=== PATIENT | male | born 1955 | race African-American/Black ===

== ENCOUNTER 2016-05-04 06:40 | Emergency (ER) ==
[2016-05-04 06:54] VITALS: TEMP 97.8; BMI 22.8
--- NOTE | 2016-05-04 07:04 | ED.PDOC ---
General ED Provider: Dr. DANYA SMALL JR Chief Complaint: Neck Pain Non-Injury Stated Complaint: c/o constant neck and shoulder pain. Increasing pain over last 3 days. Neck feels stiff. No known recent injury.[End]97.8 87 20 96% 157/ 92 910 Time Seen by Physician: 07:02 Mode of Arrival: Wheelchair Information Source: Patient Exam Limitations: No limitations Primary Care Provider: SHIRA BOWERS Nursing and Triage Documentation Reviewed and Agree: No Review of Systems - Review Of Systems Constitutional: Reports: Diaphoresis (incresed night sweats sid 2 nights ago continued lastnight) Eyes: Reports: No symptoms Ears, Nose, Mouth, Throat: Reports: No symptoms Respiratory: Reports: No symptoms Cardiac: Reports: No symptoms GI: Reports: No symptoms : Reports: No symptoms Musculoskeletal: Reports: Back pain, Neck pain (neck supple slight decreased arom consistent with history tender posterior muscles cspine upper tspin) Skin: Reports: No symptoms Neurological: Reports: No symptoms Endocrine: Reports: No symptoms Hematologic/Lymphatic: Reports: No symptoms All Other Systems: Reviewed and Negative Past Medical History - Past Medical History Endocrine: Reports: Dyslipidemia Cardiovascular: Reports: Hypertension Respiratory: Reports: COPD Hematological: Reports: None, Anemia Gastrointestinal: Reports: None, GERD, Liver (HEP C) Genitourinary: Reports: None, CKD, Other (ED) Neuro/Psych: Reports: None Musculoskeletal: Reports: Arthritis Cancer: Reports: None - Surgical History General Surgical History: Reports: Orthopedic ( LEFT HIP, BILATERAL FOOT SURGERY ,NECK SURG FUSION 1972, LEFT ARM SURG), Back Surgery (CS FUSION), Unknown ( BOTH FEET; LEFT HIP SURG) - Family History Family History: Reports: Unknown - Social History Smoking Status: Former smoker Hx Substance Use: No Alcohol Screening: None - Immunizations Tetanus Shot up to Date: Yes Physical Exam - Physical Exam Appearance: Well-appearing, Thin Pain Distress: Moderate Eyes: REINA, EOMI, Conjunctiva clear ENT: Ears normal, Nose normal, Erythema (posterior columns) Neck: Supple Respiratory: Airway patent, Breath sounds clear, Breath sounds equal, Respirations nonlabored Cardiovascular: RRR, Pulses normal, No rub, No murmur GI/: Soft, Nontender, No masses, Bowel sounds normal, No Organomegaly Musculoskeletal: Normal strength, ROM intact, No edema, No calf tenderness Skin: Warm, Dry, Normal color Neurological: Sensation intact, Motor intact, Reflexes intact, Cranial nerves intact, Alert, Oriented Psychiatric: Affect appropriate Interpretation - Radiology Interpretation Radiology Interpretation By: Radiologist Radiology Results: No acute changes Exam Interpreted: CT Scan (SEVERE DJD CHRONIC CHANGES ONLY) - EKG Interpretation Time of EKG #1: 07:59 Rate: Normal Rhythm: Sinus (63 note mery cardia 09/28/14) [place]: NL ST Segment: Normal (nonsig jpoint elevation no acute changes) Re-Evaluation - Re-Evaluation Time of Re-Evaluation: 11:00 (VARIABLE BLOOD PRESSURE, PATIETN STATES USUAL NOW ON 5 CLONIDINE A DAY REQUEST HOME AND WILL FOLLWO UP WITH PMD) Critical Care Note - Critical Care Note Total Time (mins): 5 Course - Course Hematology/Chemistry: 05/04/16 07:35 05/04/16 07:35 Orders, Labs, Meds: Lab Review 05/04/16 05/04/16 07:35 08:10 WBC 6.19 RBC 3.20 L Hgb 10.7 L Hct 32.1 L MCV 100.3 H MCH 33.4 H MCHC 33.3 RDW Coeff of Carlita 12.1 Plt Count 126 L Immature Gran % (Auto) 0.2 Neut % (Auto) 51.6 Lymph % (Auto) 38.1 Christian % (Auto) 8.1 Eos % (Auto) 1.5 Baso % (Auto) 0.5 Immature Gran # (Auto) 0.0 Neut # 3.2 Lymph # 2.4 Christian # 0.5 Eos # 0.1 Baso # 0.0 Sodium 140 Potassium 3.7 Chloride 106 Carbon Dioxide 23 Anion Gap 14.7 BUN 21 H Creatinine 1.32 H Estimated GFR (MDRD) 67.00 BUN/Creatinine Ratio 15.90 Glucose 123 H Lactic Acid 15.8 Calcium 10.3 H Total Bilirubin 0.78 AST 22 ALT 23 Alkaline Phosphatase 58 Total Protein 7.6 Albumin 3.4 Globulin 4.2 Albumin/Globulin Ratio 0.81 Procalcitonin 0.05 Influenza A (Rapid) Negative Influenza B (Rapid) Negative Orders Category Date Time Status EKG-(ED ONLY) Stat CARDIO 05/04/16 07:16 Completed Vital signs [ED VITAL SIGNS] .ONCE EMERGENCY 05/04/16 07:19 Active BLOOD CULTURE Stat LAB 05/04/16 07:35 Received CBC W/ AUTO DIFF Stat LAB 05/04/16 07:35 Completed COMPREHENSIVE METABOLIC PANEL Stat LAB 05/04/16 07:35 Completed LACTIC ACID Stat LAB 05/04/16 07:35 Completed MOLECULAR GROUP A STREP Stat LAB 05/04/16 08:10 Results PROCALCITONIN Stat LAB 05/04/16 07:35 Completed RAPID FLU A/B Stat LAB 05/04/16 08:10 Completed STREP SCREEN Stat LAB 05/04/16 08:10 Results Clonidine HCl [Catapres] MEDS 05/04/16 09:50 Discontinued 0.1 mg PO ONCE STA Cyclobenzaprine HCl [Flexeril] MEDS 05/04/16 07:08 Discontinued 5 mg PO ONCE STA Hydrocodone Bit/Acetaminophen [[place] 5-325] MEDS 05/04/16 07:07 Discontinued 1 tab PO ONCE STA Hydrocodone Bit/Acetaminophen [[place] 5-325] MEDS 05/04/16 07:08 Discontinued 1 tab PO ONCE STA CT CERVICAL SPINE W/O CONTRAST Stat RADS 05/04/16 07:07 Completed Medications Discontinued Medications Generic Name Dose Route Start Last Admin Trade Name Freq PRN Reason Stop Dose Admin Acetaminophen/Hydrocodone Bitart 1 tab 05/04/16 07:07 05/04/16 08:05 [place] 5-325 PO 05/04/16 07:08 Not Given ONCE STA Acetaminophen/Hydrocodone Bitart 1 tab 05/04/16 07:08 05/04/16 08:08 [place] 5-325 PO 05/04/16 07:09 1 tab ONCE STA Administration Clonidine 0.1 mg 05/04/16 09:50 05/04/16 10:08 Catapres PO 05/04/16 09:51 0.1 mg ONCE STA Administration Cyclobenzaprine HCl 5 mg 05/04/16 07:08 05/04/16 08:06 Flexeril PO 05/04/16 07:09 5 mg ONCE STA Administration Vital Signs: Temp Pulse Resp BP Pulse Ox 05/04/16 07:40 77 16 148/104 H 96 05/04/16 06:40 97.8 F 87 20 157/92 H 96 Departure - Departure Time of Disposition: 09:25 Disposition: HOME SELF-CARE Discharge Problem: Muscular pain Instructions: Acute Neck Pain (ED) Condition: Good Pt referred to PMD for follow-up: Yes Additional Instructions: return if fever over 101.0 if headache if unable to move neck if pain not resolving recheck PMD CHECK BLOOD PRESSURE DAILY AND RECOD TAKE MEDICATION PRESCRIBED Please follow-up with Dr. Bowers in 1-5 days. recheck blood pressure, discuss xray findings Keflex only if strep positive Flexeril for muscle tightness Prescriptions: Cephalexin [Keflex] 500 mg PO QID #40 capsule Cyclobenzaprine HCl [Flexeril] 5 mg PO TID PRN #15 tablet PRN Reason: Spasms Allergies/Adverse Reactions: Allergies No Known Allergies Allergy (Verified 05/04/16 06:54) Home Medications: Ambulatory Orders Clonidine HCl [Catapres] 0.1 mg PO BID 10/08/14 Ferrous Sulfate 325 mg PO BID 10/08/14 Pantoprazole Sodium [Protonix] 40 mg PO DAILY 10/08/14 Hydrocodone Bit/Acetaminophen [[place] 5-325] 1 - 2 tab PO Q6HR PRN #12 tablet Cephalexin [Keflex] 500 mg PO QID #40 capsule 05/04/16 Cyclobenzaprine HCl [Flexeril] 5 mg PO TID PRN #15 tablet 05/04/16 Lisinopril [Zestril] 20 mg PO DAILY 05/04/16
[2016-05-04] MEDS ORDERED: NORCO 5-325 PO STA ×2 (07:07→07:08)
[2016-05-04] MEDS ORDERED: FLEXERIL PO STA (07:08)
[2016-05-04 07:46] LABS: BASOPHILS % (AUTO) 0.5 % (0.0-3.0); EOSINOPHILS # (AUTO) 0.1 K/ul (0.0-0.7); EOSINOPHILS % (AUTO) 1.5 % (0.0-7.0); HEMATOCRIT 32.1 % (42.0-52.0); HEMOGLOBIN 10.7 g/dl (14.0-18.0); IMMATURE GRANULOCYTE % (AUTO) 0.2 % (0.0-5.0); LYMPHOCYTES # (AUTO) 2.4 K/uL (0.60-3.4); LYMPHOCYTES % (AUTO) 38.1 (10.0-50.0); MEAN CORPUSCULAR HEMOGLOBIN 33.4 pg (27.0-31.0); MEAN CORPUSCULAR HGB CONC 33.3 (31.8-35.4); MEAN CORPUSCULAR VOLUME 100.3 fl (80.0-94.0); MONOCYTES # (AUTO) 0.5 K/uL (0.4-2.0); MONOCYTES % (AUTO) 8.1 (0-10); NEUTROPHILS # (AUTO) 3.2 K/ul (2.0-6.9); NEUTROPHILS % (AUTO) 51.6; PLATELET COUNT 126 10^3/uL (140-440); WHITE BLOOD COUNT 6.19 K/ul (4.2-10.2)
[2016-05-04 08:09] LABS: ALBUMIN 3.4 g/dL (3.4-5.0); ALBUMIN/GLOBULIN RATIO 0.81; ANION GAP 14.7; BILIRUBIN,TOTAL 0.78 mg/dL (0.00-1.20); BUN/CREATININE RATIO 15.9; CALCIUM 10.3 mg/dL (8.2-10.2); CREATININE 1.32 mg/dL (0.60-1.10); POTASSIUM 3.7 mmol/L (3.5-5.1); TOTAL PROTEIN 7.6 g/dL (5.8-8.1)
--- NOTE | 2016-05-04 08:17 | CT ---
EXAM: CT cervical spine. HISTORY: Acute neck pain without trauma. TECHNIQUE: CT cervical spine without contrast. Detailed axial sections. Coronal and sagittal re-f ormations. COMPARISON: No comparison CT FINDINGS: Bones appear demineralized. Moderate reversal of the normal cervical lordosis centered at the lower cervical level. Diffuse severe degenerative disc and facet disease. Mild anterior spondylolisthesi s of C5 on C6 by about 0.23 cm. There is fusion of the posterior elements throughout most of the mi d-to-lower spine. Partial fusion of the interspaces extending from C4 through C7. Endplate irregul arity at C7/T1 and complete loss of intervertebral disc space at this level. No acute fracture is o bvious. Degenerative changes lead to multilevel central canal and neural foraminal stenosis most ap parent at C7/T1 where the degree is moderate. There is no paraspinal fluid collection identified. IMPRESSION: 1. Severe degenerative changes of the spine without acute fracture identified. There is mild anteri or spondylolisthesis of C5 on C6 estimated at approximately 0.23 cm. 2. Endplate irregularity at the C7/T1 interspace most likely related to longstanding degenerative d isease. Correlate with physical exam and with patient history. If any evidence of diskitis/endplat e osteomyelitis is seen clinically, MRI correlation can be made.
[2016-05-04 08:37] LABS: FLU INTERNAL QC INTERNAL QC VALID; RAPID FLU A NEGATIVE (NEGATIVE); RAPID FLU B NEGATIVE (NEGATIVE)
[2016-05-04] MEDS ORDERED: CATAPRES PO STA ×2 (09:50→11:33)
[2016-05-04] MEDS ORDERED: ZESTRIL PO STA (13:41)
[2016-05-04 14:31] VITALS: BP 150/96
== END 2016-05-04 14:26 | disposition home or self-care (01) ==
LOC: ED 06:40
DX: M54.2 Cervicalgia (principal); M79.1 Myalgia; M25.519 Pain in unspecified shoulder; I10 Essential (primary) hypertension; D64.9 Anemia, unspecified; E78.5 Hyperlipidemia, unspecified; Z79.899 Other long term (current) drug therapy
CPT/HCPCS: 36415; 80053; 83605; 84145; 85025; 87040; 87651; 87804; 87880; 93005; 93010; 99283

== ENCOUNTER 2016-07-15 09:21 | Emergency (ER) ==
[2016-07-15 09:24] VITALS: BP 155/90; TEMP 97.5; BMI 22.8
[2016-07-15] MEDS ORDERED: TORADOL IM STA (09:49)
[2016-07-15] MEDS ORDERED: NORFLEX IM STA ×2 (09:49→09:50)
--- NOTE | 2016-07-15 10:32 | CT ---
Exam: CT scan of the thoracic spine without contrast to include multi planar imaging History: Pain. ATT Findings: Computed tomography of the thoracic spine was performed with images obtained and reviewed in the axial plane at 3 mm slice thickness and in the sagittal and coronal planes at 2 mm slice thi ckness. Bone and soft tissue window settings were reviewed in each plane of imaging. There is no evidence of suggested thoracic spine fracture, thoracic spine compression deformity nor disruption of the costovertebral articulations. Multilevel degenerative endplate spurring noted mos t evident in the lower half of the thoracic spine region. Degenerative changes also seen at several costovertebral articulations. There is no evidence of suggested spinal stenosis nor definite artemio inal encroachment visualized.. Paravertebral soft tissues were without abnormality of concern for h ematoma. Densely calcified subcarinal lymph nodes are noted believed to be granulomatous in origin. There appears to be some pleural thickening seen in the posterior aspect of both hemithoraces but m ore evident on the right than the left. Lungs are believed to be emphysematous in appearance. Impression: No evidence of fracture, malalignment nor disruption of the articulating facets. Multilevel degenerative endplate spurring most evident in the lower half of the thoracic spine. The visualized lung leal appear somewhat emphysematous in appearance.
--- NOTE | 2016-07-15 10:34 | CT ---
EXAM: CT of the lumbar spine. HISTORY: Low back pain. COMPARISON: None. TECHNIQUE: Contiguous axial images at 3 mm intervals were obtained through the lumbar spine. Sagit macario and coronal reformats were reviewed. No contrast. FINDINGS: There are five [id number] vertebral bodies. There is slight curvature of the lumbar spine to the left measuring 9 degrees. There is straightening of the normal lordosis as well. The vertebral heights are well maintained. There are no acute or healing fractures. Bone mineralizatio n is normal. There are no lytic or blastic lesions. The soft tissues are unremarkable. There is n o retroperitoneal fluid collection. Aortic calcifications are noted. Segmental analysis: L1-2: Mild facet hypertrophy. No spinal canal or neural foramen narrowing. L2-3: Minimal disc bulge. No definite spinal canal or neural foramen narrowing.. L3-4: Minimal disc bulge. No definite spinal canal or neural foramen narrowing.. L4-5: Broad-based disc bulge eccentric to the right. Right neural foramen narrowing.. L5-S1: The disc bulge eccentric to the right. Right neural foraminal narrowing. IMPRESSION: 1. No acute fractures. 2. Mild scoliosis of the spine. 3. Minimal degenerative disc disease as described above.
--- NOTE | 2016-07-15 11:01 | ED.PDOC ---
General ED Provider: Dr. JELENA HIGHTOWER Chief Complaint: Back Pain Stated Complaint: back pain Time Seen by Physician: 09:30 Mode of Arrival: Wheelchair Information Source: Patient Exam Limitations: No limitations Primary Care Provider: SHIRA BOWERS Nursing and Triage Documentation Reviewed and Agree: Yes Musculoskeletal Complaint Exam - Back Pain Complaint/Exam Mechanism of Injury: Reports: No known trauma Onset/Duration: 1 day Symptoms Are: Still present Timing: Constant Initial Severity: Moderate Current Severity: Moderate Character: Reports: Throbbing, Spasmodic, Stiffness Aggravating: Reports: Movements, Lifting, Bending Alleviating: Reports: Rest, Position Associated Signs and Symptoms: Denies: Swelling, Redness, Bruising, Fever, Weakness, Numbness, Tingling, Abdominal pain, Flank pain, Bladder incontinence, Bowel incontinence, Weight loss, Pain with weight bearing Related History: Reports: Similar episode Epidural Abcess Risk Factors: Reports: None Related Surgical History: Reports: None Focal Tenderness: No Paraspinal Muscle Tenderness: No Paraspinal Muscle Spasm: No Scoliosis: No Lordosis: No Kyphosis: No Focal Sensory Loss: Present: None Gait: Present: Unable Review of Systems - Review Of Systems Constitutional: Reports: No symptoms Eyes: Reports: No symptoms Ears, Nose, Mouth, Throat: Reports: No symptoms Respiratory: Reports: No symptoms Cardiac: Reports: No symptoms GI: Reports: No symptoms : Reports: No symptoms Musculoskeletal: Reports: Back pain Skin: Reports: No symptoms Neurological: Reports: No symptoms Endocrine: Reports: No symptoms Hematologic/Lymphatic: Reports: No symptoms All Other Systems: Reviewed and Negative Past Medical History - Past Medical History Endocrine: Reports: Dyslipidemia Cardiovascular: Reports: Hypertension Respiratory: Reports: COPD Hematological: Reports: None, Anemia Gastrointestinal: Reports: None, GERD, Liver (HEP C) Genitourinary: Reports: None, CKD, Other (ED) Neuro/Psych: Reports: None Musculoskeletal: Reports: Arthritis Cancer: Reports: None - Surgical History General Surgical History: Reports: Orthopedic ( LEFT HIP, BILATERAL FOOT SURGERY ,NECK SURG FUSION 1972, LEFT ARM SURG), Back Surgery (CS FUSION), Unknown ( BOTH FEET; LEFT HIP SURG) - Family History Family History: Reports: Unknown - Social History Smoking Status: Former smoker Hx Substance Use: No Alcohol Screening: None Physical Exam - Physical Exam Appearance: Well-appearing, No pain distress, Well-nourished Eyes: REINA, EOMI, Conjunctiva clear ENT: Ears normal, Nose normal, Oropharynx normal Respiratory: Airway patent, Breath sounds clear, Breath sounds equal, Respirations nonlabored Cardiovascular: RRR, Pulses normal, No rub, No murmur GI/: Soft, Nontender, No masses, Bowel sounds normal, No Organomegaly Musculoskeletal: Normal strength, ROM intact, No edema, No calf tenderness Skin: Warm, Dry, Normal color Neurological: Sensation intact, Motor intact, Reflexes intact, Cranial nerves intact, Alert, Oriented Psychiatric: Affect appropriate, Mood appropriate Interpretation - Radiology Interpretation Radiology Interpretation By: Radiologist Radiology Results: No acute changes Critical Care Note - Critical Care Note Total Time (mins): 0 Course - Course Orders, Labs, Meds: Orders Category Date Time Status Ketorolac Tromethamine [Toradol] MEDS 07/15/16 09:49 Discontinued 30 mg IM ONCE STA Orphenadrine Citrate [Norflex] MEDS 07/15/16 09:50 Discontinued 30 mg IM ONCE STA CT LUMBAR SPINE W/O CONTRAST Stat RADS 07/15/16 09:[address] THORACIC SPINE W/O CONTRAST Stat RADS 07/15/16 09:51 Completed Medications Discontinued Medications Generic Name Dose Route Start Last Admin Trade Name Freq PRN Reason Stop Dose Admin Ketorolac Tromethamine 30 mg 07/15/16 09:49 07/15/16 10:19 Toradol IM 07/15/16 09:50 30 mg ONCE STA Administration Orphenadrine Citrate 30 mg 07/15/16 09:50 07/15/16 10:18 Norflex IM 07/15/16 09:51 30 mg ONCE STA Administration Vital Signs: Temp Pulse Resp BP Pulse Ox 07/15/16 09:22 97.5 F L 97 H 20 155/90 H 93 L Departure - Departure Time of Disposition: 11:01 Disposition: HOME SELF-CARE Discharge Problem: Backache Instructions: Low Back Strain (ED), Acute Low Back Pain (ED), Arthralgia (ED) Condition: Good Pt referred to PMD for follow-up: No Allergies/Adverse Reactions: Allergies No Known Allergies Allergy (Verified 07/15/16 09:25) Home Medications: Ambulatory Orders Clonidine HCl [Catapres] 0.1 mg PO BID 10/08/14 Ferrous Sulfate 325 mg PO BID 10/08/14 Pantoprazole Sodium [Protonix] 40 mg PO DAILY 10/08/14 Hydrocodone Bit/Acetaminophen [[place] 5-325] 1 - 2 tab PO Q6HR PRN #12 tablet Cyclobenzaprine HCl [Flexeril] 5 mg PO TID PRN #15 tablet 05/04/16 Lisinopril [Zestril] 20 mg PO DAILY 05/04/16
== END 2016-07-15 11:05 | disposition home or self-care (01) ==
LOC: ED 09:21
DX: M54.5 Low back pain (principal); Z79.899 Other long term (current) drug therapy
CPT/HCPCS: 96372; 99283

== ENCOUNTER 2016-09-21 12:31 | Emergency (ER) ==
[2016-09-21 12:31] VITALS: BMI 22.8
[2016-09-21 12:37] VITALS: BP 180/120; TEMP 97.9
[2016-09-21] MEDS ORDERED: TORADOL IM STA (12:45)
[2016-09-21] MEDS ORDERED: DILAUDID 1 MG/ML SYRINGE IM STA (12:45)
[2016-09-21] MEDS ORDERED: NORFLEX IM STA (12:45)
--- NOTE | 2016-09-21 13:56 | CT ---
Exam: CT of the cervical spine without intravenous contrast. Comparison: 05/04/2016. Reason for exam: Neck pain. FINDINGS: No acute fracture or listhesis. Multilevel degenerative disease seen throughout the cervi jaun c spine. There is similar appearing multilevel degenerative disease seen throughout the cervical s pine not significantly changed from the prior imaging performed on 05/04/2016. Similar appearing an terior listhesis of C5 on C6. There is fusion of the posterior elements from C4-C7. There is at le ast partial opacification of the posterior longitudinal ligament. Intervertebral body disc space hei ght loss most notably from C4-T2. The dens is intact. There is similar appearing reversal of the cervical lordotic curve. Similar appearing endplate irreg ularities in the C7-T1 interspace. Impression: 1. No acute fracture or listhesis in the cervical spine when compared to previous CT imaging perform ed on 05/04/2016. 2. Severe multilevel degenerative disease throughout the cervical spine. If clinical concern exist s for radiculopathy or myelopathy MRI may be performed.
--- NOTE | 2016-09-21 14:09 | ED.PDOC ---
General ED Provider: Dr. KAYLA LIZARRAGA-ER Chief Complaint: Neck Injury Stated Complaint: my neck hurts to move--its been hurting for a long time Time Seen by Physician: 12:35 Mode of Arrival: Wheelchair Information Source: Patient Exam Limitations: No limitations Primary Care Provider: SHIRA FONSECA Nursing and Triage Documentation Reviewed and Agree: Yes Musculoskeletal Complaint Exam - Neck Pain Complaint/Exam Mechanism of Injury: Reports: No known trauma Onset/Duration: several mos Symptoms Are: Still present Timing: Constant Episodes Lasting: Weeks Initial Severity: Mild Current Severity: Moderate Location: Reports: Discrete (posterior neck) Character: Reports: Dull, Aching, Spasmodic, Stiffness Aggravating: Reports: Position, Movement Alleviating: Reports: None Associated Signs and Symptoms: Denies: Swelling, Redness, Bruising, Fever, Nuchal rigidity, Weakness, Headache, Paresthesia Related History: Reports: Similar episode, Previous neck injury Meningitis Risk Factors: Reports: None Cervical Spine Injury Risk Factors: Reports: Distracting injuries Related Surgical History: Reports: None Carotid Bruit Present: No Pain on Passive Flexion: Yes Positive Kernig's Sign: No ROM Limited In: Present: Flexion, Extension, Right, Left Pain Located at: posterior neck Tenderness: Present: Midline Focal Weakness: Present: None Focal Sensory Loss: Reports: None Nexus Low Risk Criteria: No post-midline CS tender Differential Diagnoses: Arthritis Review of Systems - Review Of Systems Constitutional: Reports: No symptoms Eyes: Reports: No symptoms Ears, Nose, Mouth, Throat: Reports: No symptoms Respiratory: Reports: No symptoms Cardiac: Reports: No symptoms GI: Reports: No symptoms : Reports: No symptoms Musculoskeletal: Reports: Neck pain Skin: Reports: No symptoms Neurological: Reports: No symptoms Endocrine: Reports: No symptoms Hematologic/Lymphatic: Reports: No symptoms All Other Systems: Reviewed and Negative Past Medical History - Past Medical History Previously Healthy: Yes Endocrine: Reports: Dyslipidemia Cardiovascular: Reports: Hypertension Respiratory: Reports: COPD Hematological: Reports: None, Anemia Gastrointestinal: Reports: None, GERD, Liver (HEP C) Genitourinary: Reports: None, CKD, Other (ED) Neuro/Psych: Reports: None Musculoskeletal: Reports: Arthritis Cancer: Reports: None - Surgical History General Surgical History: Reports: Orthopedic ( LEFT HIP, BILATERAL FOOT SURGERY ,NECK SURG FUSION 1972, LEFT ARM SURG), Back Surgery (CS FUSION), Unknown ( BOTH FEET; LEFT HIP SURG) - Family History Family History: Reports: Unknown - Social History Smoking Status: Former smoker Hx Substance Use: No Alcohol Screening: None - Immunizations Tetanus Shot up to Date: Yes Physical Exam - Physical Exam Appearance: Well-appearing, No pain distress, Well-nourished Pain Distress: Moderate Eyes: REINA ENT: Ears normal, Nose normal, Oropharynx normal Neck: Supple Respiratory: Airway patent, Breath sounds clear, Breath sounds equal, Respirations nonlabored Cardiovascular: RRR, Pulses normal, No rub, No murmur GI/: Soft, Nontender, No masses, Bowel sounds normal, No Organomegaly Musculoskeletal: Limited ROM Skin: Warm, Dry, Normal color Neurological: Sensation intact, Motor intact, Reflexes intact, Cranial nerves intact, Alert, Oriented Psychiatric: Affect appropriate, Mood appropriate Interpretation - Radiology Interpretation Radiology Interpretation By: Radiologist Radiology Results: Positive ("severe deg changes") Re-Evaluation - Re-Evaluation Time of Re-Evaluation: 14:09 Status: Improved Vital Signs Stable: Yes Pain Level: 1 Appearance: NAD Lungs: Clear Skin: Warm and Dry Neuro: Alert and Oriented X3 CV: RRR Critical Care Note - Critical Care Note Total Time (mins): 0 Course - Course Orders, Labs, Meds: Orders Category Date Time Status Hydromorphone HCl [Dilaudid 1 mg/ml Syringe] MEDS 09/21/16 12:45 Discontinued 1 mg IM ONCE STA Ketorolac Tromethamine [Toradol] MEDS 09/21/16 12:45 Discontinued 60 mg IM ONCE STA Orphenadrine Citrate [Norflex] MEDS 09/21/16 12:45 Discontinued 60 mg IM ONCE STA CT CERVICAL SPINE W/O CONTRAST Stat RADS 09/21/16 12:44 Completed Medications Discontinued Medications Generic Name Dose Route Start Last Admin Trade Name Freq PRN Reason Stop Dose Admin Hydromorphone HCl 1 mg 09/21/16 12:45 09/21/16 12:58 Dilaudid 1 Mg/Ml Syringe IM 09/21/16 12:46 1 mg ONCE STA Administration Ketorolac Tromethamine 60 mg 09/21/16 12:45 09/21/16 12:58 Toradol IM 09/21/16 12:46 60 mg ONCE STA Administration Orphenadrine Citrate 60 mg 09/21/16 12:45 09/21/16 12:59 Norflex IM 09/21/16 12:46 60 mg ONCE STA Administration Vital Signs: Temp Pulse Resp BP Pulse Ox 09/21/16 12:31 97.9 F 87 20 180/120 H 97 Departure - Departure Time of Disposition: 14:09 Disposition: HOME SELF-CARE Discharge Problem: Degenerative disc disease, cervical Instructions: Degenerative Disc Disease (ED), Neck Pain (ED) Condition: Good Pt referred to PMD for follow-up: Yes Additional Instructions: norco 7.5mg q 4hrs prn pain #10--f/u wti dr fonseca Allergies/Adverse Reactions: Allergies No Known Allergies Allergy (Verified 09/21/16 12:39) Home Medications: Ambulatory Orders Clonidine HCl [Catapres] 0.1 mg PO BID 10/08/14 Ferrous Sulfate 325 mg PO BID 10/08/14 Pantoprazole Sodium [Protonix] 40 mg PO DAILY 10/08/14 Hydrocodone Bit/Acetaminophen [[place] 5-325] 1 - 2 tab PO Q6HR PRN #12 tablet Cyclobenzaprine HCl [Flexeril] 5 mg PO TID PRN #15 tablet 05/04/16 Lisinopril [Zestril] 20 mg PO DAILY 05/04/16 Disposition Discussed With: Patient
== END 2016-09-21 14:15 | disposition home or self-care (01) ==
LOC: ED 12:31
DX: M50.30 Other cervical disc degeneration, unspecified cervical region (principal); I10 Essential (primary) hypertension
CPT/HCPCS: 96372; 99282

== ENCOUNTER 2016-09-23 08:31 | Emergency (ER) | payer OTHER ==
[2016-09-23 08:32] VITALS: BMI 22.8
[2016-09-23 08:43] VITALS: TEMP 97.3
--- NOTE | 2016-09-23 09:01 | ED.PDOC ---
General Stated Complaint: neck amd back pain Time Seen by Physician: 08:33 (chrnoic issue seen with cj at all times ) Mode of Arrival: Walk-In Information Source: Patient Exam Limitations: No limitations Nursing and Triage Documentation Reviewed and Agree: Yes <KAYLA SYLVESTER Last Filed: 09/23/16 08:59> Information Source: Patient Exam Limitations: No limitations Nursing and Triage Documentation Reviewed and Agree: Yes <JELENA HIGHTOWER - Last Filed: 09/23/16 09:08> ED Provider: Dr. JELENA HIGHTOWER Chief Complaint: Neck Pain Non-Injury Primary Care Provider: SHIRA BOWERS Musculoskeletal Complaint Exam - Back Pain Complaint/Exam Mechanism of Injury: Reports: No known trauma Onset/Duration: chronic Symptoms Are: Still present Timing: Constant Episodes Lasting: Days Initial Severity: Moderate Current Severity: Moderate Location: Reports: Discrete Character: Reports: Aching Aggravating: Reports: None Alleviating: Reports: None Associated Signs and Symptoms: Denies: Swelling, Redness, Bruising, Fever, Weakness, Numbness, Tingling, Abdominal pain, Flank pain, Bladder incontinence, Bowel incontinence, Weight loss, Pain with weight bearing Related History: Reports: Similar episode Cauda Equina Risk Factors: Reports: None Epidural Abcess Risk Factors: Reports: None Focal Tenderness: No Paraspinal Muscle Tenderness: Yes Paraspinal Muscle Spasm: Yes Scoliosis: No Lordosis: No Kyphosis: No Focal Weakness: Present: None Focal Sensory Loss: Present: None Differential Diagnoses: Strain, Sprain <HIGINIOKAYLA Filed: 09/23/16 08:59> Review of Systems - Review Of Systems Constitutional: Reports: No symptoms Eyes: Reports: No symptoms Ears, Nose, Mouth, Throat: Reports: No symptoms Respiratory: Reports: No symptoms Cardiac: Reports: No symptoms GI: Reports: No symptoms : Reports: No symptoms Musculoskeletal: Reports: Back pain, Neck pain Skin: Reports: No symptoms Neurological: Reports: No symptoms Endocrine: Reports: No symptoms Hematologic/Lymphatic: Reports: No symptoms All Other Systems: Reviewed and Negative <HIGINIOKAYLA Filed: 09/23/16 08:59> Past Medical History - Past Medical History Previously Healthy: Yes Endocrine: Reports: Dyslipidemia Cardiovascular: Reports: Hypertension Respiratory: Reports: COPD Hematological: Reports: None, Anemia Gastrointestinal: Reports: None, GERD, Liver (HEP C) Genitourinary: Reports: None, CKD, Other (ED) Neuro/Psych: Reports: None Musculoskeletal: Reports: Arthritis Cancer: Reports: None - Surgical History General Surgical History: Reports: Orthopedic ( LEFT HIP, BILATERAL FOOT SURGERY ,NECK SURG FUSION 1972, LEFT ARM SURG), Back Surgery (CS FUSION), Unknown ( BOTH FEET; LEFT HIP SURG) - Family History Family History: Reports: Unknown - Social History Smoking Status: Former smoker Hx Substance Use: No Alcohol Screening: None - Immunizations Tetanus Shot up to Date: No <KAYLA SYLVESTER - Last Filed: 09/23/16 08:59> Physical Exam - Physical Exam Appearance: Well-appearing, No pain distress, Well-nourished Eyes: REINA, EOMI, Conjunctiva clear ENT: Ears normal, Nose normal, Oropharynx normal Respiratory: Airway patent, Breath sounds clear, Breath sounds equal, Respirations nonlabored Cardiovascular: RRR, Pulses normal, No rub, No murmur GI/: Soft, Nontender, No masses, Bowel sounds normal, No Organomegaly Musculoskeletal: Normal strength, ROM intact, No edema, No calf tenderness Skin: Warm, Dry, Normal color Neurological: Sensation intact, Motor intact, Reflexes intact, Cranial nerves intact, Alert, Oriented Psychiatric: Affect appropriate, Mood appropriate <KAYLA SYLVESTER Last Filed: 09/23/16 08:59> Critical Care Note - Critical Care Note Total Time (mins): 0 <KAYLA SYLVESTER Last Filed: 09/23/16 08:59> Departure - Departure Time of Disposition: 09:01 <XAVIERARIELAKAYLA - Last Filed: 09/23/16 08:59> - Departure Pt referred to PMD for follow-up: No <JELENA HIGHTOWER - Last Filed: 09/23/16 09:08> - Departure Disposition: HOME SELF-CARE Discharge Problem: Neck pain Instructions: Back Pain (ED) Condition: Good Allergies/Adverse Reactions: Allergies No Known Allergies Allergy (Verified 09/21/16 12:39) Home Medications: Ambulatory Orders Clonidine HCl [Catapres] 0.1 mg PO BID 10/08/14 Ferrous Sulfate 325 mg PO BID 10/08/14 Pantoprazole Sodium [Protonix] 40 mg PO DAILY 10/08/14 Hydrocodone Bit/Acetaminophen [[place] 5-325] 1 - 2 tab PO Q6HR PRN #12 tablet Cyclobenzaprine HCl [Flexeril] 5 mg PO TID PRN #15 tablet 05/04/16 Lisinopril [Zestril] 20 mg PO DAILY 05/04/16
[2016-09-23] MEDS ORDERED: DILAUDID 1 MG/ML SYRINGE IM STA (09:09)
[2016-09-23] MEDS ORDERED: NORFLEX IM STA (09:09)
[2016-09-23] MEDS ORDERED: TORADOL IM STA (09:09)
[2016-09-23 10:21] VITALS: BP 174/104
== END 2016-09-23 10:30 | disposition home or self-care (01) ==
LOC: ED 08:31
DX: M54.2 Cervicalgia (principal); M54.9 Dorsalgia, unspecified
CPT/HCPCS: 96372; 99283

== ENCOUNTER 2016-10-09 13:38 | Emergency (ER) ==
[2016-10-09 13:39] VITALS: BMI 22.8
[2016-10-09 13:43] VITALS: BP 102/63; TEMP 98.1
[2016-10-09] MEDS ORDERED: MORPHINE 10 MG/ML SYRINGE IM STA (13:52)
[2016-10-09] MEDS ORDERED: ZOFRAN 4 MG/2 ML IM STA (13:52)
--- NOTE | 2016-10-09 13:55 | ED.PDOC ---
General ED Provider: Dr. JELENA HIGHTOWER Chief Complaint: Back Pain Stated Complaint: back pain chronic Time Seen by Physician: 13:40 (chronic) Mode of Arrival: Wheelchair Information Source: Patient Exam Limitations: No limitations Primary Care Provider: SHIRA BOWERS Nursing and Triage Documentation Reviewed and Agree: Yes Musculoskeletal Complaint Exam - Back Pain Complaint/Exam Mechanism of Injury: Reports: No known trauma Onset/Duration: chronic Symptoms Are: Still present Timing: Constant Episodes Lasting: Weeks Initial Severity: Moderate Current Severity: Moderate Location: Reports: Discrete Character: Reports: Aching Aggravating: Reports: None Alleviating: Reports: None Associated Signs and Symptoms: Denies: Swelling, Redness, Bruising, Fever, Weakness, Numbness, Tingling, Abdominal pain, Flank pain, Bladder incontinence, Bowel incontinence, Weight loss, Pain with weight bearing Review of Systems - Review Of Systems Constitutional: Reports: No symptoms Eyes: Reports: No symptoms Ears, Nose, Mouth, Throat: Reports: No symptoms Respiratory: Reports: No symptoms Cardiac: Reports: No symptoms GI: Reports: No symptoms : Reports: No symptoms Musculoskeletal: Reports: Back pain Skin: Reports: No symptoms Neurological: Reports: No symptoms Endocrine: Reports: No symptoms Hematologic/Lymphatic: Reports: No symptoms All Other Systems: Reviewed and Negative Past Medical History - Past Medical History Previously Healthy: Yes Endocrine: Reports: Dyslipidemia Cardiovascular: Reports: Hypertension Respiratory: Reports: COPD Hematological: Reports: None, Anemia Gastrointestinal: Reports: None, GERD, Liver (HEP C) Genitourinary: Reports: None, CKD, Other (ED) Neuro/Psych: Reports: None Musculoskeletal: Reports: Arthritis Cancer: Reports: None - Surgical History General Surgical History: Reports: Orthopedic ( LEFT HIP, BILATERAL FOOT SURGERY ,NECK SURG FUSION 1972, LEFT ARM SURG), Back Surgery (CS FUSION), Unknown ( BOTH FEET; LEFT HIP SURG) - Family History Family History: Reports: Unknown - Social History Smoking Status: Former smoker Hx Substance Use: No Alcohol Screening: None Physical Exam - Physical Exam Appearance: Well-appearing, No pain distress, Well-nourished Eyes: RENIA, EOMI, Conjunctiva clear ENT: Ears normal, Nose normal, Oropharynx normal Respiratory: Airway patent, Breath sounds clear, Breath sounds equal, Respirations nonlabored Cardiovascular: RRR, Pulses normal, No rub, No murmur GI/: Soft, Nontender, No masses, Bowel sounds normal, No Organomegaly Musculoskeletal: Normal strength, ROM intact, No edema, No calf tenderness Skin: Warm, Dry, Normal color Neurological: Sensation intact, Motor intact, Reflexes intact, Cranial nerves intact, Alert, Oriented Psychiatric: Affect appropriate, Mood appropriate Critical Care Note - Critical Care Note Total Time (mins): 0 Course - Course Orders, Labs, Meds: Orders Category Date Time Status Morphine Sulfate [Morphine 10 mg/ml Syringe] MEDS 10/09/16 13:52 Stat 4 mg IM ONCE STA Ondansetron HCl/Pf [Zofran 4 mg/2 ml] MEDS 10/09/16 13:52 Stat 4 mg IM ONCE STA Medications Generic Name Dose Route Start Last Admin Trade Name Freq PRN Reason Stop Dose Admin Morphine Sulfate 4 mg 10/09/16 13:52 Morphine 10 Mg/Ml Syringe IM 10/09/16 13:53 ONCE STA Ondansetron HCl 4 mg 10/09/16 13:52 Zofran 4 Mg/2 Ml IM 10/09/16 13:53 ONCE STA Vital Signs: Temp Pulse Resp BP Pulse Ox 10/09/16 13:39 98.1 F 103 H 18 102/63 97 Departure - Departure Time of Disposition: 14:45 Disposition: HOME SELF-CARE Discharge Problem: Backache Instructions: Chronic Back Pain (ED) Condition: Good Pt referred to PMD for follow-up: No Additional Instructions: Please call your Family Physician as soon as possible to schedule a follow-up appointment. Allergies/Adverse Reactions: Allergies No Known Allergies Allergy (Verified 10/09/16 13:43) Home Medications: Ambulatory Orders Clonidine HCl [Catapres] 0.1 mg PO BID 10/08/14 Ferrous Sulfate 325 mg PO BID 10/08/14 Pantoprazole Sodium [Protonix] 40 mg PO DAILY 10/08/14 Hydrocodone Bit/Acetaminophen [[place] 5-325] 1 - 2 tab PO Q6HR PRN #12 tablet Cyclobenzaprine HCl [Flexeril] 5 mg PO TID PRN #15 tablet 05/04/16 Lisinopril [Zestril] 20 mg PO DAILY 05/04/16
[2016-10-09] MEDS ORDERED: MORPHINE 4 MG/ML SYRINGE IM STA (13:58)
== END 2016-10-09 14:25 | disposition home or self-care (01) ==
LOC: ED 13:38
DX: M54.9 Dorsalgia, unspecified (principal); G89.29 Other chronic pain
CPT/HCPCS: 96372; 99282

== ENCOUNTER 2016-12-07 12:51 | Outpatient (CLI) | payer OTHER ==
[2016-12-07 12:57] LABS: BASOPHILS % (AUTO) 0.8 % (0.0-3.0); EOSINOPHILS # (AUTO) 0.1 K/ul (0.0-0.7); EOSINOPHILS % (AUTO) 1.9 % (0.0-7.0); HEMATOCRIT 28.3 % (42.0-52.0); IMMATURE GRANULOCYTE % (AUTO) 0.2 % (0.0-5.0); LYMPHOCYTES # (AUTO) 2.2 K/uL (0.60-3.4); LYMPHOCYTES % (AUTO) 42.6 (10.0-50.0); MEAN CORPUSCULAR HEMOGLOBIN 35.6 pg (27.0-31.0); MEAN CORPUSCULAR HGB CONC 35.3 (31.8-35.4); MEAN CORPUSCULAR VOLUME 100.7 fl (80.0-94.0); MONOCYTES # (AUTO) 0.4 K/uL (0.4-2.0); MONOCYTES % (AUTO) 8.5 (0-10); NEUTROPHILS # (AUTO) 2.4 K/ul (2.0-6.9); PLATELET COUNT 156 10^3/uL (140-440); RED BLOOD COUNT 2.81 10^6/ul (4.70-6.10); WHITE BLOOD COUNT 5.16 K/ul (4.2-10.2)
[2016-12-07 13:30] LABS: ALBUMIN 3.3 g/dL (3.4-5.0); ALBUMIN/GLOBULIN RATIO 0.89; ANION GAP 19.9; BILIRUBIN,TOTAL 0.55 mg/dL (0.00-1.20); BUN/CREATININE RATIO 14.02; CALCIUM 10.4 mg/dL (8.2-10.2); CHOL/HDL RATIO 2.9 (4.5-6.4); CREATININE 1.64 mg/dL (0.60-1.10); POTASSIUM 3.9 mmol/L (3.5-5.1)
== END 2016-12-07 12:52 | disposition home or self-care (01) ==
LOC: LAB 12:51
PROVIDERS: ATTEND Emergency Medicine
DX: I10 Essential (primary) hypertension (principal)
CPT/HCPCS: 36415; 80053; 80061; 84443; 85025

== ENCOUNTER 2016-12-22 11:18 | Inpatient (IN) ==
[2016-12-22 12:46] VITALS: BMI 20.7
[2016-12-22] MEDS ORDERED: TYLENOL PO PRN (13:13)
[2016-12-22] MEDS ORDERED: NON-FORMULARY MEDICATION (Lisinopril [Zestril] 20 MG) PO SCH ×22 (13:15)
[2016-12-22] MEDS ORDERED: FLEXERIL PO PRN (13:15)
[2016-12-22] MEDS: SODIUM CHLORIDE 1,000 ML IV SCH (14:14)
[2016-12-22] MEDS: LIPITOR PO SCH (14:14)
[2016-12-22] MEDS: ZESTRIL PO SCH (14:14)
[2016-12-22] MEDS: NORCO 5-325 PO PRN (14:22)
[2016-12-22 15:05] LABS: BASOPHILS % (AUTO) 0.3 % (0.0-3.0); EOSINOPHILS # (AUTO) 0.1 K/ul (0.0-0.7); EOSINOPHILS % (AUTO) 1.3 % (0.0-7.0); HEMATOCRIT 28.4 % (42.0-52.0); HEMOGLOBIN 10.1 g/dl (14.0-18.0); IMMATURE GRANULOCYTE % (AUTO) 0.4 % (0.0-5.0); LYMPHOCYTES # (AUTO) 2.7 K/uL (0.60-3.4); LYMPHOCYTES % (AUTO) 36.6 (10.0-50.0); MEAN CORPUSCULAR HEMOGLOBIN 35.1 pg (27.0-31.0); MEAN CORPUSCULAR HGB CONC 35.6 (31.8-35.4); MEAN CORPUSCULAR VOLUME 98.6 fl (80.0-94.0); MONOCYTES % (AUTO) 12.8 (0-10); NEUTROPHILS # (AUTO) 3.6 K/ul (2.0-6.9); NEUTROPHILS % (AUTO) 48.6; PLATELET COUNT 139 10^3/uL (140-440); RED BLOOD COUNT 2.88 10^6/ul (4.70-6.10); WHITE BLOOD COUNT 7.43 K/ul (4.2-10.2)
[2016-12-22 15:33] LABS: ALBUMIN 3.3 g/dL (3.4-5.0); ALBUMIN/GLOBULIN RATIO 0.87; ANION GAP 17.2; BILIRUBIN,TOTAL 0.33 mg/dL (0.00-1.20); BUN/CREATININE RATIO 15.7; CREATININE 2.42 mg/dL (0.60-1.10); POTASSIUM 3.2 mmol/L (3.5-5.1); TOTAL PROTEIN 7.1 g/dL (5.8-8.1)
--- NOTE | 2016-12-22 16:00 | CT ---
EXAM: CT abdomen pelvis without contrast HISTORY: Abdominal pain and bloating with diarrhea and history of hepatitis C COMPARISON: CT abdomen pelvis 09/24/2014 and 01/19/2014 TECHNIQUE: Serial axial images of the abdomen pelvis were performed from the lung bases through the inferior pelvis without contrast. These were viewed in multiple planes. FINDINGS: The lung bases demonstrate minimal right middle lobe atelectasis. Evaluation is limited due to lack of contrast. The liver demonstrates no focal hepatic lesion or de finitive changes of cirrhosis. Gallbladder is contracted. The adrenal glands are normal. Kidneys are normal without hydronephrosis, hydroureter or visualized stone. The spleen is unremarkable. Pa ncreas is normal with few calcifications. The stomach is distended. Small bowel in the abdomen pelvis is unremarkable. The colon demonstrates mild sigmoid colonic wall thickening as seen on image 56. The remaining colon is normal. The appendix is normal. There is no free air, free fluid or lymphadenopathy. The urinary bladder is distended. Prostate is normal. The osseous structures demonstrate no acute lytic or blastic lesion. IMPRESSION: 1. No acute intra-abdominal abnormality to account for patient's symptoms. 2. No evidence of cirrhosis or focal hepatic lesion is identified. 3. Mild sigmoid colonic wall thickening with no definitive inflammation may represent non distensio n or subtle inflammation.
[2016-12-22] MEDS: CATAPRES PO SCH (20:25)
[2016-12-22] MEDS: FERROUS SULFATE PO SCH (20:25)
[2016-12-22] MEDS ORDERED: NON-FORMULARY MEDICATION (Ferrous Sulfate [Ferrous Sulfate] 325 MG) PO SCH ×22 (21:00)
[2016-12-23] MEDS: SODIUM CHLORIDE 1,000 ML IV SCH ×2 (02:47→16:08)
[2016-12-23] MEDS: NORCO 5-325 PO PRN ×3 (02:51→16:23)
[2016-12-23] MEDS ORDERED: VASOTEC IV IVP STA (03:02)
[2016-12-23 04:58] LABS: BASOPHILS % (AUTO) 0.5 % (0.0-3.0); EOSINOPHILS # (AUTO) 0.1 K/ul (0.0-0.7); EOSINOPHILS % (AUTO) 2.3 % (0.0-7.0); HEMATOCRIT 26.6 % (42.0-52.0); HEMOGLOBIN 9.2 g/dl (14.0-18.0); IMMATURE GRANULOCYTE % (AUTO) 0.3 % (0.0-5.0); LYMPHOCYTES # (AUTO) 2.5 K/uL (0.60-3.4); LYMPHOCYTES % (AUTO) 41.2 (10.0-50.0); MEAN CORPUSCULAR HEMOGLOBIN 33.8 pg (27.0-31.0); MEAN CORPUSCULAR HGB CONC 34.6 (31.8-35.4); MEAN CORPUSCULAR VOLUME 97.8 fl (80.0-94.0); MONOCYTES # (AUTO) 0.7 K/uL (0.4-2.0); NEUTROPHILS # (AUTO) 2.7 K/ul (2.0-6.9); NEUTROPHILS % (AUTO) 44.7; PLATELET COUNT 117 10^3/uL (140-440); RED BLOOD COUNT 2.72 10^6/ul (4.70-6.10)
[2016-12-23 05:20] LABS: ALBUMIN/GLOBULIN RATIO 0.91; ANION GAP 18.8; BILIRUBIN,TOTAL 0.35 mg/dL (0.00-1.20); BUN/CREATININE RATIO 15.7; CREATININE 1.91 mg/dL (0.60-1.10); POTASSIUM 2.8 mmol/L (3.5-5.1); TOTAL PROTEIN 6.3 g/dL (5.8-8.1)
[2016-12-23] MEDS: PROTONIX PO SCH (05:44)
[2016-12-23] MEDS: LIPITOR PO SCH (08:48)
[2016-12-23] MEDS: CATAPRES PO SCH ×2 (08:48→20:59)
[2016-12-23] MEDS: FERROUS SULFATE PO SCH ×2 (08:48→20:59)
[2016-12-23] MEDS: ZESTRIL PO SCH (08:48)
[2016-12-23] MEDS ORDERED: DECADRON 4 MG/ML SDV IVP STA (10:38)
[2016-12-23] MEDS ORDERED: K-DUR PO STA (10:39)
[2016-12-23] MEDS: BENADRYL PO SCH ×2 (10:52→20:59)
[2016-12-23] MEDS ORDERED: POTASSIUM CHLORIDE PREMIX RUN 20 MEQ in PREMIX 100 ML WATER 1 BAG IV STA (15:47)
[2016-12-23] MEDS ORDERED: POTASSIUM CHLORIDE PREMIX RUN 100 ML IV ONE (15:50)
[2016-12-23] MEDS ORDERED: CATAPRES PO STA (17:41)
[2016-12-24] MEDS: NORCO 5-325 PO PRN ×3 (02:21→20:54)
[2016-12-24] MEDS ORDERED: CATAPRES PO STA (02:54)
[2016-12-24] MEDS: SODIUM CHLORIDE 1,000 ML IV SCH ×2 (04:03→08:30)
[2016-12-24 05:24] LABS: BASOPHILS % (AUTO) 0.1 % (0.0-3.0); EOSINOPHILS % (AUTO) 0.1 % (0.0-7.0); HEMATOCRIT 27.6 % (42.0-52.0); HEMOGLOBIN 9.8 g/dl (14.0-18.0); IMMATURE GRANULOCYTE % (AUTO) 0.4 % (0.0-5.0); LYMPHOCYTES # (AUTO) 1.8 K/uL (0.60-3.4); LYMPHOCYTES % (AUTO) 22.6 (10.0-50.0); MEAN CORPUSCULAR HEMOGLOBIN 34.6 pg (27.0-31.0); MEAN CORPUSCULAR HGB CONC 35.5 (31.8-35.4); MEAN CORPUSCULAR VOLUME 97.5 fl (80.0-94.0); MONOCYTES # (AUTO) 0.9 K/uL (0.4-2.0); MONOCYTES % (AUTO) 11.4 (0-10); NEUTROPHILS # (AUTO) 5.2 K/ul (2.0-6.9); NEUTROPHILS % (AUTO) 65.4; PLATELET COUNT 127 10^3/uL (140-440); RED BLOOD COUNT 2.83 10^6/ul (4.70-6.10); WHITE BLOOD COUNT 7.89 K/ul (4.2-10.2)
[2016-12-24] MEDS: PROTONIX PO SCH (05:44)
[2016-12-24 05:53] LABS: ALBUMIN 3.1 g/dL (3.4-5.0); ALBUMIN/GLOBULIN RATIO 0.86; ANION GAP 9.6; BILIRUBIN,TOTAL 0.25 mg/dL (0.00-1.20); BUN/CREATININE RATIO 16.66; CALCIUM 8.9 mg/dL (8.2-10.2); CREATININE 1.44 mg/dL (0.60-1.10); POTASSIUM 3.6 mmol/L (3.5-5.1); TOTAL PROTEIN 6.7 g/dL (5.8-8.1)
[2016-12-24] MEDS: ZESTRIL PO SCH (08:42)
[2016-12-24] MEDS: CATAPRES PO SCH ×2 (08:43→20:35)
[2016-12-24] MEDS: FERROUS SULFATE PO SCH ×2 (08:43→20:35)
[2016-12-24] MEDS: LIPITOR PO SCH (08:43)
[2016-12-24] MEDS: BENADRYL PO SCH ×2 (08:43→20:36)
[2016-12-24] MEDS: HYDROCHLOROTHIAZIDE PO SCH (08:43)
[2016-12-24] MEDS ORDERED: NON-FORMULARY MEDICATION (Hydrochlorothiazide [Hydrochlorothiazide] 12.5 MG) PO SCH ×22 (09:00)
[2016-12-24] MEDS ORDERED: DECADRON 4 MG/ML SDV IVP ONE (11:00)
[2016-12-24] MEDS ORDERED: ZESTRIL PO SCH (15:10)
[2016-12-24] MEDS: LOPRESSOR PO SCH ×2 (15:23→20:36)
[2016-12-24] MEDS ORDERED: FOLIC ACID ONE (16:24)
[2016-12-24] MEDS ORDERED: INFUVITE ADULT IV ONE (16:24)
[2016-12-24] MEDS ORDERED: THIAMINE ONE (16:24)
--- NOTE | 2016-12-24 16:24 | CT ---
EXAM: CT chest without contrast TECHNIQUE: Helical axial CT of the chest was performed without contrast with coronal and sagittal re constructions. COMPARISON: CT abdomen pelvis from 2 days prior HISTORY: Short of breath FINDINGS: Lung parenchyma: There is no mass or nodule or large effusion or infiltrate. There is some minimal b ibasilar scarring and/or atelectasis. Mediastinum: No pathologic hilar or mediastinal adenopathy. No significant coronary calcifications. There is no pericardial effusion. There is some minimal calcific atherosclerosis of the aorta. There is no evidence for aortic aneurysm. There is old granulomatous disease. Upper Abdomen: No focal or acute abnormality. There is a rounded radio dense object seen overlying t he duodenum probably an ingested pill. Osseous structures: Nothing acute. Surrounding soft tissues including the thyroid gland are normal. No supraclavicular or axillary elkin opathy. IMPRESSION: 1. No acute abnormality is seen. There is no interstitial lung disease or infiltrates or effusions or failure. 2. Minimal bibasilar scarring and/or atelectasis. 3. Other miscellaneous findings as above.
[2016-12-24] MEDS: LIBRIUM PO SCH ×2 (16:39→20:36)
[2016-12-24] MEDS: FOLIC ACID 1 MG, INFUVITE ADULT 10 ML, THIAMINE 100 MG in SODIUM CHLORIDE 1,000 ML IV SCH (16:40)
[2016-12-25 04:47] LABS: BASOPHILS % (AUTO) 0.2 % (0.0-3.0); EOSINOPHILS % (AUTO) 0.3 % (0.0-7.0); HEMATOCRIT 28.1 % (42.0-52.0); HEMOGLOBIN 9.8 g/dl (14.0-18.0); IMMATURE GRANULOCYTE % (AUTO) 0.5 % (0.0-5.0); LYMPHOCYTES # (AUTO) 2.5 K/uL (0.60-3.4); LYMPHOCYTES % (AUTO) 28.8 (10.0-50.0); MEAN CORPUSCULAR HEMOGLOBIN 34.5 pg (27.0-31.0); MEAN CORPUSCULAR HGB CONC 34.9 (31.8-35.4); MEAN CORPUSCULAR VOLUME 98.9 fl (80.0-94.0); MONOCYTES # (AUTO) 0.8 K/uL (0.4-2.0); MONOCYTES % (AUTO) 9.4 (0-10); NEUTROPHILS # (AUTO) 5.2 K/ul (2.0-6.9); NEUTROPHILS % (AUTO) 60.8; PLATELET COUNT 134 10^3/uL (140-440); RED BLOOD COUNT 2.84 10^6/ul (4.70-6.10); WHITE BLOOD COUNT 8.59 K/ul (4.2-10.2)
[2016-12-25 05:07] LABS: ALBUMIN/GLOBULIN RATIO 0.81; ANION GAP 14.4; BILIRUBIN,TOTAL 0.2 mg/dL (0.00-1.20); BUN/CREATININE RATIO 16.56; CALCIUM 8.9 mg/dL (8.2-10.2); CREATININE 1.57 mg/dL (0.60-1.10); POTASSIUM 3.4 mmol/L (3.5-5.1); TOTAL PROTEIN 6.7 g/dL (5.8-8.1)
[2016-12-25] MEDS: PROTONIX PO SCH (05:33)
[2016-12-25] MEDS: LIBRIUM PO SCH ×3 (05:34→20:52)
[2016-12-25] MEDS: BENADRYL PO SCH ×2 (08:56→20:52)
[2016-12-25] MEDS: CATAPRES PO SCH ×2 (08:56→20:52)
[2016-12-25] MEDS: LOPRESSOR PO SCH ×2 (08:57→20:52)
[2016-12-25] MEDS: LIPITOR PO SCH (08:57)
[2016-12-25] MEDS: ZESTRIL PO SCH (08:57)
[2016-12-25] MEDS: FERROUS SULFATE PO SCH ×2 (08:57→20:52)
[2016-12-25] MEDS: NORCO 5-325 PO PRN (10:14)
[2016-12-25] MEDS ORDERED: APRESOLINE PO SCH (10:30)
--- NOTE | 2016-12-25 11:44 | PN ---
DATE OF SERVICE: 12/23/16 SUBJECTIVE: The patient was admitted with the hypertensive urgency and hypokalemia. Blood pressure been still elevated more than 200. Clonidine 0.2mg has been given extra dose and Vasotec been given day before. REVIEW OF SYSTEMS: CONSTITUTIONAL: No fever, no chills. HEENT: Normal. ENDOCRINE: No weight gain, no weight loss. CVS: No angina symptoms. No CHF symptoms. No palpitations. No atypical chest pain for CAD. No shortness of breath. No PND, no orthopnea. RESPIRATORY: No cough, no hemoptysis. GI: No nausea, no vomiting. No abdominal pain. : No hematuria. No polyuria. MUSCULOSKELETAL:. No joint swelling. PSYCHIATRIC: Not anxious. No depression. No suicidal thoughts. No homicidal thoughts. SKIN: Intact. No rash. PHYSICAL EXAMINATION: V/S: Blood pressure 178/99, respiratory 16, heart rate 72, temperature 97.1. HEENT: Normocephalic, atraumatic. Mucosa dry. Pallor positive. No icterus. NECK: Supple. No JVD, no carotid bruit. No lymphadenopathy. LUNGS: Clear to auscultation. No rales or rhonchi. HEART: S1, S2 normal. No S3. No murmur, gallop or regurgitation. ABDOMEN: Soft, nontender. Bowel sounds active. No rigidity. No rebound or guarding. No CVA tenderness. EXTREMITIES: No clubbing, cyanosis or pedal edema. MUSCULOSKELETAL: No joint swelling. NEUROLOGIC: Awake, alert, oriented times three. No focal deficit. LYMPHATIC: No lymph nodes palpable. SKIN: Intact. LABS: WBC 6.0, hgb 9.2, hct 26.6, plt count 117, sodium 144, potassium 2.8, chloride 105, bibcarb 23, BUN 30, creatinine 1.91, glucose 168. ASSESSMENT: 1. Hypokalemia, status post diarrhea 2. Hypertensive urgency 3. Hepatitis C 4. Thrombocytopenia 5. Severe DJD spine 6. History of cervical fusion PLAN: 1. Clonidine 0.2mg Twice a day from 0.1 2. Replace potassium with IV potassium and the PO potassium 3. IV fluids 4. Cardiac diet 5. Solu-Medrol 6. Benadryl, the patient did have mild reaction to the Vasotec and he was complaining of the itching but patient takes Lisinopril so I don't think that maybe the reason because patient been taking Lisinopril without any problems but will still address the issue with the Decadron and the Benadryl TIME SPENT: More than 40 minutes MTDD
--- NOTE | 2016-12-25 12:56 | US ---
EXAM: Ultrasound retroperitoneal complete. HISTORY: Elevated blood pressure. COMPARISON: 10/15/2013. CT 12/22/2016. TECHNIQUE: Multiple dalton scale and color Doppler images. FINDINGS: Right kidney measures 11.6 x 5.1 x 5.2 cm. The left kidney measures 10.1 x 6.5 x 5.1 cm. Simple left renal cyst measures 2.2 x 2 x 2.2 cm. Cortical thickness is normal. There is no hydron ephrosis. Urinary bladder is unremarkable. Since the prior study, there has been no significant interval change. IMPRESSION: No acute abnormality of the kidneys or bladder.
--- NOTE | 2016-12-25 12:57 | US ---
EXAM: Ultrasound renal Doppler. HISTORY: Hypertension. COMPARISON: Abdominal CT 12/22/2016. TECHNIQUE: Alex-scale and color Doppler images. FINDINGS: Right kidney measures 11 cm in length. There is no hydronephrosis. Peak systolic velocity measurement in the right renal artery are 1.2, 0.3 and 0.4 meters per second i n the origin, midportion and distal portion respectively. Right renal artery to aortic ratios measur e 4.0, 1.0 and 1.3. Right renal resistive index measures 0.66. Left kidney measures 10.4 cm in length. There is no hydronephrosis. Peak systolic velocity measurements in the left renal artery are 0.2, 0.3 and 0.4 meters per second i n the origin, midportion and distal portion respectively. Left renal artery to aortic ratios measure 0.6, 1.0 and 1.3. Left renal resistive index measures 0.65. Venous outflow is not imaged. IMPRESSION: No evidence for hemodynamically significant stenosis in the right or left renal artery.
[2016-12-25] MEDS: MORPHINE 2 MG/ML SYRINGE IVP PRN (13:27)
[2016-12-25] MEDS: APRESOLINE PO SCH (20:51)
[2016-12-26] MEDS ORDERED: INFUVITE ADULT IV ONE (00:18)
[2016-12-26] MEDS ORDERED: FOLIC ACID ONE (00:19)
[2016-12-26] MEDS ORDERED: THIAMINE ONE (00:20)
[2016-12-26] MEDS: FOLIC ACID 1 MG, INFUVITE ADULT 10 ML, THIAMINE 100 MG in SODIUM CHLORIDE 1,000 ML IV SCH ×2 (00:27→02:31)
[2016-12-26 04:47] LABS: BASOPHILS % (AUTO) 0.4 % (0.0-3.0); EOSINOPHILS # (AUTO) 0.1 K/ul (0.0-0.7); EOSINOPHILS % (AUTO) 1.1 % (0.0-7.0); HEMATOCRIT 27.3 % (42.0-52.0); HEMOGLOBIN 9.3 g/dl (14.0-18.0); IMMATURE GRANULOCYTE % (AUTO) 0.5 % (0.0-5.0); LYMPHOCYTES # (AUTO) 3.7 K/uL (0.60-3.4); MEAN CORPUSCULAR HEMOGLOBIN 34.6 pg (27.0-31.0); MEAN CORPUSCULAR HGB CONC 34.1 (31.8-35.4); MEAN CORPUSCULAR VOLUME 101.5 fl (80.0-94.0); MONOCYTES # (AUTO) 0.6 K/uL (0.4-2.0); MONOCYTES % (AUTO) 7.8 (0-10); NEUTROPHILS # (AUTO) 3.6 K/ul (2.0-6.9); NEUTROPHILS % (AUTO) 44.2; PLATELET COUNT 133 10^3/uL (140-440); RED BLOOD COUNT 2.69 10^6/ul (4.70-6.10)
[2016-12-26 05:10] LABS: ALBUMIN 2.7 g/dL (3.4-5.0); ALBUMIN/GLOBULIN RATIO 0.87; ANION GAP 12.1; BILIRUBIN,TOTAL 0.2 mg/dL (0.00-1.20); BUN/CREATININE RATIO 13.98; CALCIUM 8.2 mg/dL (8.2-10.2); CREATININE 1.93 mg/dL (0.60-1.10); POTASSIUM 3.1 mmol/L (3.5-5.1); TOTAL PROTEIN 5.8 g/dL (5.8-8.1)
[2016-12-26] MEDS: LIBRIUM PO SCH ×3 (05:52→20:21)
[2016-12-26] MEDS: PROTONIX PO SCH (05:52)
[2016-12-26] MEDS ORDERED: K-DUR PO STA (07:53)
[2016-12-26] MEDS ORDERED: POTASSIUM CHLORIDE 40 MEQ VIAL-ADDITIVE ONLY IV ONE (07:56)
[2016-12-26] MEDS: CATAPRES PO SCH ×2 (08:42→20:20)
[2016-12-26] MEDS: APRESOLINE PO SCH ×2 (08:43→20:21)
[2016-12-26] MEDS: ZESTRIL PO SCH (08:43)
[2016-12-26] MEDS: HYDROCHLOROTHIAZIDE PO SCH (08:43)
[2016-12-26] MEDS: BENADRYL PO SCH ×2 (08:44→20:21)
[2016-12-26] MEDS: LOPRESSOR PO SCH ×2 (08:44→20:21)
[2016-12-26] MEDS: LIPITOR PO SCH (08:44)
[2016-12-26] MEDS: FERROUS SULFATE PO SCH ×2 (08:45→20:21)
[2016-12-26] MEDS: MORPHINE 2 MG/ML SYRINGE IVP PRN (08:59)
--- NOTE | 2016-12-26 14:57 | PN ---
DATE OF SERVICE: 12/25/16 SUBJECTIVE: The patient was admitted with hypertension uncontrolled and gastroenteritis and hypokalemia. Hypokalemia been corrected somewhat. Blood pressure is still up and down. REVIEW OF SYSTEMS: CONSTITUTIONAL: No fever, no chills. HEENT: Normal. ENDOCRINE: No weight gain, no weight loss. CVS: No angina symptoms. No CHF symptoms. No palpitations. No atypical chest pain for CAD. No shortness of breath. No PND, no orthopnea. RESPIRATORY: No cough, no hemoptysis. GI: No nausea, no vomiting. No abdominal pain. : No hematuria. No polyuria. MUSCULOSKELETAL:. No joint swelling. PSYCHIATRIC: Not anxious. No depression. No suicidal thoughts. No homicidal thoughts. SKIN: Intact. No rash. PHYSICAL EXAMINATION: V/S: Blood pressure 192/114, respiratory rate 18, heart rate 54 and temperature 97.6. HEENT: Normocephalic, atraumatic. Mucosa dry. Pallor positive. No icterus. NECK: Supple. No JVD, no carotid bruit. No lymphadenopathy. LUNGS:Decreased and clear to auscultation. No rales or rhonchi. HEART: S1, S2 normal. No S3. No murmur, gallop or regurgitation. ABDOMEN: Soft, nontender. Bowel sounds active. No rigidity. No rebound or guarding. No CVA tenderness. EXTREMITIES: No clubbing, cyanosis or pedal edema. MUSCULOSKELETAL: No joint swelling. NEUROLOGIC: Awake, alert, oriented times three. No focal deficit. LYMPHATIC: No lymph nodes palpable. SKIN: Intact. LABS: WBC 8.59, hgb 9.8, hct 28.1, plt count 134, sodium 140, potassium 3.4, chloride 107, bicarb 24, BUN 26 and creatinine 1.57. ASSESSMENT: 1. Status post hypertension, labile 2. Hypokalemia, status post diarrhea 3. History of Hepatitis C 4. Hypertension 5. DJD spine, cervical spine PLAN: 1. Will add Hydralazine 50mg twice a day 2. Will replace the Potassium to 40meq 3. Continue the rest of the medication 4. IV fluids Will follow the patient in daily rounds. TIME SPENT: More than 35 minutes MTDD
--- NOTE | 2016-12-26 15:03 | PN ---
DATE OF SERVICE: 12/26/16 SUBJECTIVE: Potassium is 3.1 and blood pressure is somewhat better. The patient just woke up and says that he is feeling weak and tired. No energy. REVIEW OF SYSTEMS: CONSTITUTIONAL: No fever, no chills. HEENT: Normal. ENDOCRINE: No weight gain, no weight loss. CVS: No angina symptoms. No CHF symptoms. No palpitations. No atypical chest pain for CAD. No shortness of breath. No PND, no orthopnea. RESPIRATORY: No cough, no hemoptysis. GI: No nausea, no vomiting. No abdominal pain. : No hematuria. No polyuria. MUSCULOSKELETAL:. No joint swelling. PSYCHIATRIC: Not anxious. No depression. No suicidal thoughts. No homicidal thoughts. SKIN: Intact. No rash. PHYSICAL EXAMINATION: V/S: Blood pressure 114/72, respiratory rate 20, heart rate 73, temperature 97.6 with saturation 98%. HEENT: Normocephalic, atraumatic. Mucosa dry. Pallor positive. No icterus. NECK: Supple. No JVD, no carotid bruit. No lymphadenopathy. LUNGS: Bilateral entry is decreased and clear to auscultation. No rales or rhonchi. HEART: S1, S2 normal. No S3. No murmur, gallop or regurgitation. ABDOMEN: Soft, nontender. Bowel sounds active. No rigidity. No rebound or guarding. No CVA tenderness. EXTREMITIES: No clubbing, cyanosis or pedal edema. MUSCULOSKELETAL: No joint swelling. NEUROLOGIC: Awake, alert, oriented times three. No focal deficit. LYMPHATIC: No lymph nodes palpable. SKIN: Intact. LABS: Sodium 142, potassium 3.1, chloride 111, bibcarb 22, BUN 27, creatinine 1.93, WBC 8.10, hgb 9.3, hct 27.3, plt count is 133 ASSESSMENT: 1. Hypokalemia 2. Labile hypertension 3. Chronic kidney disease 4. Hepatitis C 5. Cervical degenerative joint disease 6. Ataxia PLAN: 1. Continue the Hydralazine 50mg twice a day along with other medications 2. Replace the Potassium with the IV and PO 40mew potassium TIME SPENT: More than 35 minutes MTDD
[2016-12-26] MEDS: FOLIC ACID IV SCH (15:47)
[2016-12-26] MEDS: INFUVITE ADULT IV SCH (15:47)
[2016-12-26] MEDS: [UNRECOGNIZED DRUG - OTHER] IV SCH (15:47)
[2016-12-26] MEDS: THIAMINE IV SCH (15:47)
[2016-12-26 16:23] LABS: POTASSIUM 4.4 mmol/L (3.5-5.1)
[2016-12-26 16:43] LABS: MAGNESIUM < 0.7 mg/dL (1.7-2.2)
[2016-12-26] MEDS ORDERED: MAG-OX ONE (16:57)
[2016-12-26] MEDS: MAG-OX PO SCH ×2 (17:40→20:21)
[2016-12-27] MEDS ORDERED: INFUVITE ADULT IV ONE (02:55)
[2016-12-27] MEDS ORDERED: THIAMINE ONE (02:56)
[2016-12-27] MEDS ORDERED: FOLIC ACID ONE (02:57)
[2016-12-27] MEDS: THIAMINE IV SCH (03:00)
[2016-12-27] MEDS: [UNRECOGNIZED DRUG - OTHER] IV SCH (03:00)
[2016-12-27] MEDS: INFUVITE ADULT IV SCH (03:00)
[2016-12-27] MEDS: FOLIC ACID IV SCH (03:00)
[2016-12-27 04:49] LABS: BASOPHILS % (AUTO) 0.5 % (0.0-3.0); EOSINOPHILS # (AUTO) 0.1 K/ul (0.0-0.7); EOSINOPHILS % (AUTO) 1.7 % (0.0-7.0); HEMATOCRIT 26.9 % (42.0-52.0); IMMATURE GRANULOCYTE % (AUTO) 0.8 % (0.0-5.0); LYMPHOCYTES # (AUTO) 3.3 K/uL (0.60-3.4); LYMPHOCYTES % (AUTO) 42.5 (10.0-50.0); MEAN CORPUSCULAR HEMOGLOBIN 34.7 pg (27.0-31.0); MEAN CORPUSCULAR HGB CONC 33.5 (31.8-35.4); MEAN CORPUSCULAR VOLUME 103.9 fl (80.0-94.0); MONOCYTES # (AUTO) 0.9 K/uL (0.4-2.0); NEUTROPHILS # (AUTO) 3.4 K/ul (2.0-6.9); NEUTROPHILS % (AUTO) 43.5; PLATELET COUNT 119 10^3/uL (140-440); RED BLOOD COUNT 2.59 10^6/ul (4.70-6.10); WHITE BLOOD COUNT 7.85 K/ul (4.2-10.2)
[2016-12-27 05:17] LABS: ALBUMIN 2.6 g/dL (3.4-5.0); ALBUMIN/GLOBULIN RATIO 0.87; ANION GAP 11.5; BILIRUBIN,TOTAL 0.19 mg/dL (0.00-1.20); BUN/CREATININE RATIO 15.42; CALCIUM 7.9 mg/dL (8.2-10.2); CREATININE 1.88 mg/dL (0.60-1.10); POTASSIUM 4.5 mmol/L (3.5-5.1); TOTAL PROTEIN 5.6 g/dL (5.8-8.1)
[2016-12-27] MEDS: LIBRIUM PO SCH ×2 (05:43→12:12)
[2016-12-27] MEDS: PROTONIX PO SCH (05:43)
[2016-12-27] MEDS: CATAPRES PO SCH ×2 (08:27→20:22)
[2016-12-27] MEDS: LIPITOR PO SCH (08:27)
[2016-12-27] MEDS: FERROUS SULFATE PO SCH ×2 (08:28→20:22)
[2016-12-27] MEDS: APRESOLINE PO SCH ×2 (08:28→20:21)
[2016-12-27] MEDS: BENADRYL PO SCH (08:28)
[2016-12-27] MEDS: LOPRESSOR PO SCH ×2 (08:29→20:23)
[2016-12-27] MEDS: MAG-OX PO SCH ×2 (08:29→20:21)
[2016-12-27] MEDS ORDERED: HYDROCHLOROTHIAZIDE PO STA (08:41)
[2016-12-27] MEDS ORDERED: ZESTRIL PO SCH (12:00)
[2016-12-27] MEDS ORDERED: LIBRIUM PO PRN (13:09)
[2016-12-27] MEDS: NORCO 5-325 PO PRN (20:25)
[2016-12-28] MEDS: MORPHINE 2 MG/ML SYRINGE IVP PRN (02:34)
[2016-12-28 05:36] LABS: BASOPHILS % (AUTO) 0.3 % (0.0-3.0); EOSINOPHILS # (AUTO) 0.1 K/ul (0.0-0.7); EOSINOPHILS % (AUTO) 1.8 % (0.0-7.0); HEMATOCRIT 25.2 % (42.0-52.0); HEMOGLOBIN 8.5 g/dl (14.0-18.0); IMMATURE GRANULOCYTE % (AUTO) 0.5 % (0.0-5.0); LYMPHOCYTES # (AUTO) 2.2 K/uL (0.60-3.4); LYMPHOCYTES % (AUTO) 33.4 (10.0-50.0); MEAN CORPUSCULAR HEMOGLOBIN 35.1 pg (27.0-31.0); MEAN CORPUSCULAR HGB CONC 33.7 (31.8-35.4); MEAN CORPUSCULAR VOLUME 104.1 fl (80.0-94.0); MONOCYTES # (AUTO) 0.7 K/uL (0.4-2.0); MONOCYTES % (AUTO) 11.2 (0-10); NEUTROPHILS # (AUTO) 3.4 K/ul (2.0-6.9); NEUTROPHILS % (AUTO) 52.8; PLATELET COUNT 115 10^3/uL (140-440); RED BLOOD COUNT 2.42 10^6/ul (4.70-6.10); WHITE BLOOD COUNT 6.52 K/ul (4.2-10.2)
[2016-12-28 05:56] LABS: ALBUMIN 2.6 g/dL (3.4-5.0); ALBUMIN/GLOBULIN RATIO 0.84; ANION GAP 10.9; BILIRUBIN,TOTAL 0.27 mg/dL (0.00-1.20); BUN/CREATININE RATIO 16.44; CALCIUM 8.6 mg/dL (8.2-10.2); CREATININE 1.52 mg/dL (0.60-1.10); POTASSIUM 3.9 mmol/L (3.5-5.1); TOTAL PROTEIN 5.7 g/dL (5.8-8.1)
[2016-12-28] MEDS: PROTONIX PO SCH (06:22)
[2016-12-28] MEDS: HYDROCHLOROTHIAZIDE PO SCH (08:57)
[2016-12-28] MEDS: MAG-OX PO SCH ×2 (08:57→21:01)
[2016-12-28] MEDS: CATAPRES PO SCH ×2 (08:58→21:01)
[2016-12-28] MEDS: LIPITOR PO SCH (08:58)
[2016-12-28] MEDS: APRESOLINE PO SCH ×2 (08:58→21:01)
[2016-12-28] MEDS: FERROUS SULFATE PO SCH ×2 (08:58→21:01)
--- NOTE | 2016-12-28 10:52 | PN ---
DATE OF SERVICE: 12/27/16 SUBJECTIVE: The patient was admitted with the hypertensive urgency, acute gastroenteritis and severe hypokalemia. Hypokalemia has been resolved. The patient's magnesium is less than 0.8 been on other replacement. Complains about the weakness and tiredness and no energy. Blood pressure is a lot better but still patient has a very labile blood pressure. REVIEW OF SYSTEMS: CONSTITUTIONAL: No fever, no chills. HEENT: Normal. ENDOCRINE: No weight gain, no weight loss. CVS: No angina symptoms. No CHF symptoms. No palpitations. No atypical chest pain for CAD. No shortness of breath. No PND, no orthopnea. RESPIRATORY: No cough, no hemoptysis. GI: No nausea, no vomiting. No abdominal pain. : No hematuria. No polyuria. MUSCULOSKELETAL:. No joint swelling. PSYCHIATRIC: Not anxious. No depression. No suicidal thoughts. No homicidal thoughts. SKIN: Intact. No rash. PHYSICAL EXAMINATION: V/S: Blood pressure 166/63, respiratory rate 20, heart rate 69 and temperature 97.9. HEENT: Normocephalic, atraumatic. Mucosa dry. Pallor positive. No icterus. NECK: Supple. No JVD, no carotid bruit. No lymphadenopathy. LUNGS:Decreased and clear to auscultation. No rales or rhonchi. HEART: S1, S2 normal. No S3. No murmur, gallop or regurgitation. ABDOMEN: Soft, nontender. Bowel sounds active. No rigidity. No rebound or guarding. No CVA tenderness. EXTREMITIES: No clubbing, cyanosis or pedal edema. MUSCULOSKELETAL: No joint swelling. NEUROLOGIC: Awake, alert, oriented times three. No focal deficit. LYMPHATIC: No lymph nodes palpable. SKIN: Intact. LABS: WBC 7.85, hgb 9.0, hct 26.9, plt count 119, sodium 142, potassium 4.5, chloride 115, bicarb 20, BUN 29, creatinine 0.88 and glucose 193. Magnesium less than 0.7 , potassium is 4.5. ASSESSMENT: 1. Status post hypertensive urgency 2. Status post severe hypokalemia 3. Now has severe hypomagnesemia 4. Chronic kidney disease 5. Hepatitic C 6. Liver cirrhosis 7. History of DJD spine, cervical, status post surgery PLAN: 1. Continue to replace the Magnesium with the Magnesium oxide 300 twice a day 2. Continue Morphine PRN 3. Librium PRN 4. Will stop the IV fluids 5. Daily I&O's Will follow the patient in daily rounds. TIME SPENT: More than 35 minutes MTDDionne
[2016-12-28] MEDS: LOPRESSOR PO SCH ×2 (11:51→21:00)
[2016-12-28] MEDS: ZESTRIL PO SCH (11:52)
[2016-12-28] MEDS: NORCO 5-325 PO PRN (21:00)
[2016-12-29 05:04] LABS: BASOPHILS % (AUTO) 0.3 % (0.0-3.0); EOSINOPHILS # (AUTO) 0.1 K/ul (0.0-0.7); EOSINOPHILS % (AUTO) 1.8 % (0.0-7.0); HEMATOCRIT 25.1 % (42.0-52.0); HEMOGLOBIN 8.4 g/dl (14.0-18.0); IMMATURE GRANULOCYTE % (AUTO) 0.8 % (0.0-5.0); LYMPHOCYTES # (AUTO) 1.8 K/uL (0.60-3.4); LYMPHOCYTES % (AUTO) 29.9 (10.0-50.0); MEAN CORPUSCULAR HEMOGLOBIN 34.9 pg (27.0-31.0); MEAN CORPUSCULAR HGB CONC 33.5 (31.8-35.4); MEAN CORPUSCULAR VOLUME 104.1 fl (80.0-94.0); MONOCYTES # (AUTO) 0.8 K/uL (0.4-2.0); MONOCYTES % (AUTO) 13.2 (0-10); NEUTROPHILS # (AUTO) 3.3 K/ul (2.0-6.9); PLATELET COUNT 127 10^3/uL (140-440); RED BLOOD COUNT 2.41 10^6/ul (4.70-6.10); WHITE BLOOD COUNT 6.15 K/ul (4.2-10.2)
[2016-12-29 05:23] LABS: ALBUMIN 2.6 g/dL (3.4-5.0); ALBUMIN/GLOBULIN RATIO 0.79; ANION GAP 11.9; BILIRUBIN,TOTAL 0.23 mg/dL (0.00-1.20); BUN/CREATININE RATIO 16.17; CALCIUM 8.9 mg/dL (8.2-10.2); CREATININE 1.36 mg/dL (0.60-1.10); POTASSIUM 3.9 mmol/L (3.5-5.1); TOTAL PROTEIN 5.9 g/dL (5.8-8.1)
[2016-12-29] MEDS: PROTONIX PO SCH (05:40)
[2016-12-29] MEDS: LOPRESSOR PO SCH (09:03)
[2016-12-29] MEDS: CATAPRES PO SCH (09:03)
[2016-12-29] MEDS: FERROUS SULFATE PO SCH (09:03)
[2016-12-29] MEDS: APRESOLINE PO SCH (09:03)
[2016-12-29] MEDS: LIPITOR PO SCH (09:04)
[2016-12-29] MEDS: MAG-OX PO SCH (09:04)
--- NOTE | 2016-12-29 10:52 | PCM.PROG ---
Attending Provider: ATTENDING PROVIDER: Dr. MARY KAY [facility]QUEZ-[facility] DATE OF SERVICE: 12/29/16 SUBJECTIVE: This 61 year old BLACK/ M was hospitalized 12/22/16. The patient feels pretty good. Blood pressure is getting better. Diarrhea has resolved. The patient feels some better today. No fever, no chills. The patient is still feeling weak and tired. He has not been seeing Dr. Lacy for hepatitis C. REVIEW OF SYSTEMS: CONSTITUTIONAL: No fever, no chills. ENDOCRINE: No weight loss or weight gain. HEENT: No sinus drainage, no sore throat. CVS: No angina symptoms. No CHF symptoms. No palpitations. No atypical chest pain for CAD. No shortness of breath. RESPIRATORY: No cough, no hemoptysis. GI: No melena. No abdominal pain. No nausea, no vomiting. : No hematuria. No polyuria. SKIN: No rash. No wounds. MUSCULOSKELETAL: No pain. CARDIAC TECHNICIAN: No blackout, no dizziness. No headache. No double vision. PSYCHIATRIC: Not anxious; no depression. No suicidal thoughts. No homicidal thoughts. PHYSICAL EXAMINATION: GENERAL: Lying in bed in no distress. VITAL SIGNS: Temperature 98.7 F, Pulse 70, Respiratory Rate 16, BP 154/90, Pulse Ox 97% HEENT: Normocephalic, atraumatic. Mucosa is dry, pallor positive. NECK: No JVP, no carotid bruit. No lymphadenopathy. CARDIAC: S1, S2, no S3. No murmur, gallop or regurgitation. LUNGS: Clear to auscultation. ABDOMEN: Soft, non-tender. Bowel sounds active. No rigidity, guarding or CVA tenderness. EXTREMITIES: No clubbing, cyanosis or edema. NEUROLOGIC: Awake, alert and oriented x3. LYMPHATIC: No palpable lymph nodes SKIN: Not dry. Intact. MUSCULOSKELETAL: No joint swelling. LAB REVIEW: 12/29/16 04:30 12/29/16 04:30 12/29/16 04:30: Sodium 141, Potassium 3.9, Chloride 111 H, Carbon Dioxide 22 L, Anion Gap 11.9, BUN 22 H, Creatinine 1.36 H, Estimated GFR (MDRD) 65.00, BUN/ Creatinine Ratio 16.17, Glucose 158 H, Calcium 8.9, Total Bilirubin 0.23, AST 27 , ALT 27, Alkaline Phosphatase 78, Total Protein 5.9, Albumin 2.6 L, Globulin 3.3, Albumin/Globulin Ratio 0.79 12/29/16 04:30: WBC 6.15, RBC 2.41 L, Hgb 8.4 L, Hct 25.1 L, MCV 104.1 H, MCH 34.9 H, MCHC 33.5, RDW Coeff of Carlita 12.9, Plt Count 127 L, Immature Gran % (Auto ) 0.8, Neut % (Auto) 54.0, Lymph % (Auto) 29.9, [place] % (Auto) 13.2 H, Eos % ( Auto) 1.8, Baso % (Auto) 0.3, Immature Gran # (Auto) 0.1, Neut # 3.3, Lymph # 1.8, [place] # 0.8, Eos # 0.1, Baso # 0.0 ASSESSMENT: 1. Hypertension 2. Status post hypertensive urgency 3. Status post gastroenteritis 4. Status post hypokalemia 5. History of Hepatitis C seeing Dr. Lacy 6. Anemia, stable 7. DJD C-spine 8. Ataxia PLAN: 1. Discharge home 2. Followup in the [facility] next 3. The patient is to see Dr. Lacy as outpatient 4. Protonix 40 mg b.i.d. [facility]. [facility] Plan and coordination of the patient's care discussed in the presence of Osd Clerk and nurse. CONDITION: Stable SCRIBED BY: ROBBY GARCIA, Meat Grader scribed while in presence of service performed by Dr. MARY KAY [facility]ELAZQUEZ[facility] on 12/29/16 ([id number])
[2016-12-29 11:19] VITALS: BP 152/86; TEMP 97.9
[2016-12-29] MEDS: ZESTRIL PO SCH (11:31)
--- NOTE | 2017-01-01 13:17 | PN ---
DATE OF SERVICE: 12/28/16 SUBJECTIVE: The patient was admitted with the gastroenteritis, severe hypokalemia and labile hypertension. The patient says that he is not feeling good and not been awake and alert and hasn't been walking much. He just feels weak and tired with some headache, no abdominal pain or diarrhea. REVIEW OF SYSTEMS: CONSTITUTIONAL: No fever, no chills. HEENT: Normal. ENDOCRINE: No weight gain, no weight loss. CVS: No angina symptoms. No CHF symptoms. No palpitations. No atypical chest pain for CAD. No shortness of breath. No PND, no orthopnea. RESPIRATORY: No cough, no hemoptysis. GI: No nausea, no vomiting. No abdominal pain. : No hematuria. No polyuria. MUSCULOSKELETAL:. No joint swelling. PSYCHIATRIC: Not anxious. No depression. No suicidal thoughts. No homicidal thoughts. SKIN: Intact. No rash. PHYSICAL EXAMINATION: V/S: Blood pressure 140/80, respiratory rate 20, heart rate 78, temperature 97.9. HEENT: Normocephalic, atraumatic. Pallor positive. No icterus. NECK: Supple. No JVD, no carotid bruit. No lymphadenopathy. LUNGS: Clear to auscultation. No rales or rhonchi. HEART: S1, S2 normal. No S3. No murmur, gallop or regurgitation. ABDOMEN: Soft, nontender. Bowel sounds active. No rigidity. No rebound or guarding. No CVA tenderness. EXTREMITIES: No clubbing, cyanosis or pedal edema. MUSCULOSKELETAL: No joint swelling. NEUROLOGIC: Awake, alert, oriented times three. No focal deficit. LYMPHATIC: No lymph nodes palpable. SKIN: Intact. Dry. LABS: WBC 6.52, hgb 8.5, hct 25.2, plt count 115, sodium 143, potassium 3.9, chloride 114, bicarb 22, BUN 25, creatinine 1.52. ASSESSMENT: 1. Hypertension, labile 2. Gastroenteritis 3. Status post hypokalemia 4. Status post anemia 5. Hepatis C 6. Ataxia 7. Cervical DJD spine, status post surgery. PLAN: 1. Stop the IV fluids 2. Morphine PRN 4. Manual blood pressure checking Will follow the patient in daily rounds. TIME SPENT: More than 35 minutes MTDD
--- NOTE | 2017-01-01 13:43 | PN ---
DATE OF SERVICE: 12/24/16 SUBJECTIVE: The patient was admitted with the hypertensive urgency and gastroenteritis and hypokalemia. Hypokalemia has been replaced. Blood pressure is still up and down , no headache or visual problems. REVIEW OF SYSTEMS: CONSTITUTIONAL: No fever, no chills. HEENT: Normal. ENDOCRINE: No weight gain, no weight loss. CVS: No angina symptoms. No CHF symptoms. No palpitations. No atypical chest pain for CAD. No shortness of breath. No PND, no orthopnea. RESPIRATORY: No cough, no hemoptysis. GI: No nausea, no vomiting. No abdominal pain. : No hematuria. No polyuria. MUSCULOSKELETAL:. No joint swelling. PSYCHIATRIC: Not anxious. No depression. No suicidal thoughts. No homicidal thoughts. SKIN: Intact. No rash. PHYSICAL EXAMINATION: V/S: Blood pressure 198/104, respiratory rate 18, heart rate 75 and temperature 97.0. HEENT: Normocephalic, atraumatic. Mucosa dry. Pallor positive. No icterus. NECK: Supple. No JVD, no carotid bruit. No lymphadenopathy. LUNGS: Clear to auscultation. No rales or rhonchi. HEART: S1, S2 normal. No S3. No murmur, gallop or regurgitation. ABDOMEN: Soft, nontender. Bowel sounds active. No rigidity. No rebound or guarding. No CVA tenderness. EXTREMITIES: No clubbing, cyanosis or pedal edema. MUSCULOSKELETAL: No joint swelling. NEUROLOGIC: Awake, alert, oriented times three. No focal deficit. LYMPHATIC: No lymph nodes palpable. SKIN: Intact. LABS: Sodium 139, potassium 3.6, chloride 110, bicarb 23, BUN 24, creatinine 1.44, WBC 7.89, hgb 8.9, hct 27.6, plt count 127. ASSESSMENT: 1. Hypertensive urgency 2. Labile hypertension 3. Status post hypokalemia 4. Status post gastroenteritis 5. Anemia 6. Thrombocytopenia 7. Hepatis C 8. DJD spine PLAN: 1. Will make the Clonidine 0.2mg twice a day 2. Start the patient on the Metoprolol 50mg PO twice a day 3. Increase the Lisinopril to 40mg daily 4. Continue to monitor the blood pressure 5. Risk of stroke been discussed 6. Will evaluate the secondary cause of the blood pressure by CT of the chest and renal ultrasound Doppler. TIME SPENT: More than 40 minutes MTDD
--- NOTE | 2017-02-08 15:49 | DS ---
DATE OF SERVICE: 12/29/16 FINAL DIAGNOSIS: 1. STATUS POST HYPERTENSIVE URGENCY 2. STATUS POST GASTROENTERITIS 3. STATUS POST HYPOKALEMIA 4. ANEMIA SECONDARY TO GI BLEED, STABLE 5. HISTORY OF HEPATITIS C, SEEING DR. LACY 6. DJD C-SPINE 7. ATAXIA 8. CHRONIC KIDNEY DISEASE 9. HISTORY OF C-SPINE FUSION 10. OCCASIONAL ALCOHOL 11. NICOTINE USE DISCHARGE INSTRUCTIONS: 1. Discharge the patient home 2. Appointment with Dr. Sweeney in the [facility] 01/04/[address] Lacy on 01/31/17 MEDICATIONS AT DISCHARGE: Hydrocodone Albuterol Lipitor Flexeril Iron pills NEW PRESCRIPTIONS: Clonidine 0.2 mg twice a day Lopressor 50 mg twice a day Hydralazine 50 mg twice a day Zestril one tablet at noontime Protonix 40 mg twice a day DIET INSTRUCTIONS: 2 gm sodium, low cholesterol diet ACTIVITY: Keep legs elevated when resting SMOKING: Former smoker DISEASE SPECIFIC EDUCATION: Hypertension, risk of stroke and intracranial bleed discussed HOSPITAL COURSE: This is a 62-year-old male who came to the [facility] with weakness, tiredness, elevated blood pressure. He has been having diarrhea, not feeling well. Blood pressure was 190/101, 200/118. Admitted to the hospital for IV fluids and dehydration. Potassium was 3.2 which was replaced. Clonidine 0.2 was given initially. Potassium replaced. Morphine was given for pain. Librium was given. Question of alcoholism was there but the patient did not tell but the patient's family was a little worried about him. MVI was given. CT of abdomen and CT chest was fine. Renal ultrasound did not show any obstruction. Ultrasound of abdomen showed liver cirrhosis. Hemoglobin was steady. BUN and creatinine 26 and 1.5; 27 and 1.93. Gradually the blood pressure became normal 140/80, 170/91, 132/80, had some leg edema and feeling weak but overall diarrhea was stopped. Potassium was replaced, BUN and creatinine stable. At that time, the patient was discharged home. TIME SPENT: MORE THAN 60 MINUTES MTDD
== END 2016-12-29 12:45 | disposition home or self-care (01) | DRG 305 ==
LOC: MEDSURG B 11:18
PROVIDERS: ADMIT Emergency Medicine; ATTEND Emergency Medicine
DX: I16.0 Hypertensive urgency (principal); K92.2 Gastrointestinal hemorrhage, unspecified; K74.60 Unspecified cirrhosis of liver; K52.9 Noninfective gastroenteritis and colitis, unspecified; E87.6 Hypokalemia; D50.0 Iron deficiency anemia secondary to blood loss (chronic); I12.9 Hypertensive chronic kidney disease with stage 1 through stage 4 chronic kidney disease, or unspecified chronic kidney disease; N18.9 Chronic kidney disease, unspecified; R27.0 Ataxia, unspecified; D69.6 Thrombocytopenia, unspecified; I10 Essential (primary) hypertension; M47.892 Other spondylosis, cervical region; F17.200 Nicotine dependence, unspecified, uncomplicated; Z86.19 Personal history of other infectious and parasitic diseases; Z98.890 Other specified postprocedural states; Z72.89 Other problems related to lifestyle; Z79.899 Other long term (current) drug therapy
CPT/HCPCS: 36415; 76770; 80053; 83735; 84132; 85025; 93005; 93010; 97802; 99223; 99233; 99239

== ENCOUNTER 2017-01-09 11:05 | Outpatient (RCR) | END 2017-01-13 | LOC: NEWBEG 11:05 | PROVIDERS: ATTEND Psychiatry & Neurology Psychiatry | DX: Z00.00 Encounter for general adult medical examination without abnormal findings (principal) ==

== ENCOUNTER 2017-02-03 12:27 | Emergency (ER) | payer OTHER ==
[2017-02-03 12:33] VITALS: BP 133/80; TEMP 99.5; BMI 20.5
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
[2017-02-03 13:45] LABS: ANION GAP 21.2; BUN/CREATININE RATIO 15.13; CALCIUM 8.6 mg/dL (8.2-10.2); CREATININE 1.85 mg/dL (0.60-1.10); POTASSIUM 3.2 mmol/L (3.5-5.1)
== END 2017-02-03 14:15 | disposition home or self-care (01) ==
LOC: ED 12:27
DX: M54.2 Cervicalgia (principal); G89.29 Other chronic pain; E87.6 Hypokalemia; S90.812A Abrasion, left foot, initial encounter; I10 Essential (primary) hypertension; Z79.899 Other long term (current) drug therapy; V89.2XXS Person injured in unspecified motor-vehicle accident, traffic, sequela
CPT/HCPCS: 36415; 80048; 99283

== ENCOUNTER 2017-02-06 08:39 | Emergency (ER) ==
[2017-02-06 08:39] VITALS: BMI 20.5
[2017-02-06] MEDS ORDERED: MORPHINE 2 MG/ML SYRINGE IM STA (08:44)
[2017-02-06] MEDS ORDERED: ZOFRAN 4 MG/2 ML IM STA (08:44)
--- NOTE | 2017-02-06 08:48 | ED.PDOC ---
General ED Provider: Dr. JELENA HIGHTOWER Chief Complaint: Back Pain Stated Complaint: low back pain , wound check left foot Time Seen by Physician: 08:45 (see photos seen with citlaly at all times ) Primary Care Provider: [facility] Nursing and Triage Documentation Reviewed and Agree: Yes Musculoskeletal Complaint Exam - Back Pain Complaint/Exam Mechanism of Injury: Reports: No known trauma, Other (chronic pain for which pt seeks help from a pain control center ) Onset/Duration: chronic , Symptoms Are: Still present Timing: Intermittent Episodes Lasting: Weeks Initial Severity: Moderate Current Severity: Moderate Location: Reports: Discrete Character: Reports: Aching Aggravating: Reports: Movements, Lifting, Bending, Walking Alleviating: Reports: Rest, Position Associated Signs and Symptoms: Denies: Swelling, Redness, Bruising, Fever, Weakness, Numbness, Tingling, Abdominal pain, Flank pain, Bladder incontinence, Bowel incontinence, Weight loss, Pain with weight bearing Related History: Reports: Similar episode Review of Systems - Review Of Systems Constitutional: Reports: No symptoms Eyes: Reports: No symptoms Ears, Nose, Mouth, Throat: Reports: No symptoms Respiratory: Reports: No symptoms Cardiac: Reports: No symptoms GI: Reports: No symptoms : Reports: No symptoms Musculoskeletal: Reports: No symptoms Skin: Reports: No symptoms Neurological: Reports: No symptoms Endocrine: Reports: No symptoms Hematologic/Lymphatic: Reports: No symptoms All Other Systems: Reviewed and Negative Past Medical History - Past Medical History Previously Healthy: Yes Endocrine: Reports: Dyslipidemia Cardiovascular: Reports: Hypertension Respiratory: Reports: COPD Hematological: Reports: None, Anemia Gastrointestinal: Reports: None, GERD, Liver (HEP C) Genitourinary: Reports: None, CKD, Other (ED) Neuro/Psych: Reports: None Musculoskeletal: Reports: Arthritis, Joint Pain (Degen disk dz per recent MRI, according to patient) Cancer: Reports: None - Surgical History General Surgical History: Reports: Orthopedic ( LEFT HIP, BILATERAL FOOT SURGERY ,NECK SURG FUSION 1972, LEFT ARM SURG), Back Surgery (CS FUSION), Other (BOTH FEET; LEFT HIP SURG) - Family History Family History: Reports: Unknown - Social History Smoking Status: Former smoker Hx Substance Use: No Alcohol Screening: None - Immunizations Influenza Vaccine within 12 Months: No Pneumococcal Vaccine up to Date: No Physical Exam - Physical Exam Appearance: Well-appearing, No pain distress, Well-nourished Eyes: REINA, EOMI, Conjunctiva clear ENT: Ears normal, Nose normal, Oropharynx normal Respiratory: Airway patent, Breath sounds clear, Breath sounds equal, Respirations nonlabored Cardiovascular: RRR, Pulses normal, No rub, No murmur GI/: Soft, Nontender, No masses, Bowel sounds normal, No Organomegaly Musculoskeletal: Normal strength (left foot 2 cm wound as noted in photos wound is good repai no drainage ), ROM intact, No edema, No calf tenderness Skin: Warm, Dry, Normal color Neurological: Sensation intact, Motor intact, Reflexes intact, Cranial nerves intact, Alert, Oriented Psychiatric: Affect appropriate, Mood appropriate Critical Care Note - Critical Care Note Total Time (mins): 0 Course - Course Orders, Labs, Meds: Orders Category Date Time Status Morphine Sulfate [Morphine 2 mg/ml Syringe] MEDS 02/06/17 08:44 Stat 4 mg IM ONCE STA Ondansetron HCl/Pf [Zofran 4 mg/2 ml] MEDS 02/06/17 08:44 Stat 4 mg IM ONCE STA Medications Discontinued Medications Generic Name Dose Route Start Last Admin Trade Name Freq PRN Reason Stop Dose Admin Morphine Sulfate 4 mg 02/06/17 08:44 Morphine 2 Mg/Ml Syringe IM 02/06/17 08:45 ONCE STA Ondansetron HCl 4 mg 02/06/17 08:44 Zofran 4 Mg/2 Ml IM 02/06/17 08:45 ONCE STA Departure - Departure Time of Disposition: 08:48 Disposition: HOME SELF-CARE Discharge Problem: Backache Low back pain Qualifiers: Chronicity: unspecified Instructions: Acute Wound Care (ED), Wound Healing and Your Diet (ED), Low Back Strain (ED), Acute Low Back Pain (ED) Condition: Good Pt referred to PMD for follow-up: Yes Additional Instructions: Please call your Family Physician as soon as possible to schedule a follow-up appointment. Allergies/Adverse Reactions: Allergies enalaprilat [From Vasotec] Adverse Reaction (Mild, Verified 02/06/17 08:46) Itching Patient experienced facial flushing and itching. Home Medications: Ambulatory Orders Ferrous Sulfate 325 mg PO BID 10/08/14 Cyclobenzaprine HCl [Flexeril] 5 mg PO TID PRN #15 tablet 05/04/16 Clonidine HCl 0.2 mg PO BID #60 tablet 12/29/16 Hydralazine HCl [Apresoline] 50 mg PO Q12H #60 tablet 12/29/16 Metoprolol Tartrate [Lopressor] 50 mg PO BID #60 tablet 12/29/16 Pantoprazole Sodium [Protonix] 40 mg PO BID #60 tablet. 12/29/16 Potassium Chloride [K-Dur] 20 meq PO DAILY #5 tab 02/03/17 Hydrocodone Bit/Acetaminophen [[place] 7.5-325] 1 tab PO TID PRN 02/06/17
[2017-02-06 08:51] VITALS: BP 133/84; TEMP 96.8
== END 2017-02-06 09:35 | disposition home or self-care (01) ==
LOC: ED 08:39
DX: M54.5 Low back pain (principal); G89.29 Other chronic pain; S91.302A Unspecified open wound, left foot, initial encounter
CPT/HCPCS: 96372; 99283

== ENCOUNTER 2017-02-07 08:59 | Outpatient (CLI) ==
[2017-02-06 08:39] VITALS: BMI 20.5
[2017-02-07 09:23] LABS: BASOPHILS % (AUTO) 0.4 % (0.0-3.0); EOSINOPHILS # (AUTO) 0.1 K/ul (0.0-0.7); EOSINOPHILS % (AUTO) 1.4 % (0.0-7.0); HEMATOCRIT 25.8 % (42.0-52.0); IMMATURE GRANULOCYTE % (AUTO) 0.2 % (0.0-5.0); LYMPHOCYTES # (AUTO) 1.3 K/uL (0.60-3.4); LYMPHOCYTES % (AUTO) 22.6 (10.0-50.0); MEAN CORPUSCULAR HGB CONC 34.9 (31.8-35.4); MEAN CORPUSCULAR VOLUME 97.4 fl (80.0-94.0); MONOCYTES # (AUTO) 0.6 K/uL (0.4-2.0); NEUTROPHILS # (AUTO) 3.7 K/ul (2.0-6.9); NEUTROPHILS % (AUTO) 65.4; PLATELET COUNT 133 10^3/uL (140-440); RED BLOOD COUNT 2.65 10^6/ul (4.70-6.10); WHITE BLOOD COUNT 5.58 K/ul (4.2-10.2)
== END 2017-02-07 09:00 | disposition home or self-care (01) ==
LOC: LAB 08:59
PROVIDERS: ATTEND Emergency Medicine
DX: R00.2 Palpitations (principal); D50.8 Other iron deficiency anemias
CPT/HCPCS: 36415; 85025; 93005; 93010

== ENCOUNTER 2017-02-07 18:24 | Outpatient (CLI) ==
[2017-02-06 08:39] VITALS: BMI 20.5
== END 2017-02-07 18:25 | disposition short-term general hospital (02) ==
LOC: AMBL 18:24
PROVIDERS: ATTEND Family Medicine
DX: M54.5 Low back pain (principal); M19.90 Unspecified osteoarthritis, unspecified site

== ENCOUNTER 2017-02-13 12:29 | Outpatient (CLI) | payer OTHER ==
[2017-02-13 12:46] LABS: BASOPHILS % (AUTO) 0.5 % (0.0-3.0); EOSINOPHILS # (AUTO) 0.1 K/ul (0.0-0.7); EOSINOPHILS % (AUTO) 1.1 % (0.0-7.0); HEMATOCRIT 24.9 % (42.0-52.0); HEMOGLOBIN 8.3 g/dl (14.0-18.0); IMMATURE GRANULOCYTE % (AUTO) 0.5 % (0.0-5.0); LYMPHOCYTES # (AUTO) 1.8 K/uL (0.60-3.4); LYMPHOCYTES % (AUTO) 28.8 (10.0-50.0); MEAN CORPUSCULAR HEMOGLOBIN 32.9 pg (27.0-31.0); MEAN CORPUSCULAR HGB CONC 33.3 (31.8-35.4); MEAN CORPUSCULAR VOLUME 98.8 fl (80.0-94.0); MONOCYTES # (AUTO) 0.6 K/uL (0.4-2.0); MONOCYTES % (AUTO) 8.6 (0-10); NEUTROPHILS # (AUTO) 3.9 K/ul (2.0-6.9); NEUTROPHILS % (AUTO) 60.5; PLATELET COUNT 243 10^3/uL (140-440); RED BLOOD COUNT 2.52 10^6/ul (4.70-6.10); WHITE BLOOD COUNT 6.38 K/ul (4.2-10.2)
[2017-02-13 12:59] LABS: ALBUMIN 2.8 g/dL (3.4-5.0); ALBUMIN/GLOBULIN RATIO 0.61; ANION GAP 18.4; BILIRUBIN,TOTAL 0.42 mg/dL (0.00-1.20); BUN/CREATININE RATIO 14.97; CALCIUM 10.1 mg/dL (8.2-10.2); CREATININE 1.87 mg/dL (0.60-1.10); POTASSIUM 3.4 mmol/L (3.5-5.1); TOTAL PROTEIN 7.4 g/dL (5.8-8.1)
== END 2017-02-13 12:30 | disposition home or self-care (01) ==
LOC: LAB 12:29
PROVIDERS: ATTEND Emergency Medicine
DX: B18.2 Chronic viral hepatitis C (principal); I10 Essential (primary) hypertension
CPT/HCPCS: 36415; 80053; 85025

== ENCOUNTER 2017-07-05 10:18 | Outpatient (CLI) | END 2017-07-05 10:19 | disposition home or self-care (01) | LOC: LAB 10:18 | PROVIDERS: ATTEND Emergency Medicine | DX: D50.8 Other iron deficiency anemias (principal); I10 Essential (primary) hypertension; B18.2 Chronic viral hepatitis C | CPT/HCPCS: 36415; 80053; 85025 ==

== ENCOUNTER 2017-07-12 12:58 | Outpatient (CLI) | payer OTHER | END 2017-07-12 12:59 | disposition home or self-care (01) | LOC: RHC-LAB 12:58 | PROVIDERS: ATTEND Emergency Medicine | DX: D50.8 Other iron deficiency anemias (principal); I10 Essential (primary) hypertension; Z12.5 Encounter for screening for malignant neoplasm of prostate | CPT/HCPCS: 36415; 80061; 82607; 82728; 82746; 83540; 83550; 84466; 85045 ==

== ENCOUNTER 2017-08-27 09:45 | Inpatient (IN) ==
--- NOTE | 2017-08-27 10:37 | ED.PDOC ---
General ED Provider: Dr. JELENA HIGHTOWER Chief Complaint: Fall Stated Complaint: fall Time Seen by Physician: 09:48 (seen with Lizeth AT ALL TIMES ) Mode of Arrival: Wheelchair Information Source: Patient Exam Limitations: No limitations Primary Care Provider[facility] Nursing and Triage Documentation Reviewed and Agree: Yes Reviewed sepsis parameters & appropriate labs ordered?: Yes System Inflammatory Response Syndrome: Not Applicable Sepsis Protocol: For patient's 13 years and over: Temp is 96.8 and below OR 101 and greater Pulse >90 BPM Resp >20/minute Acutely Altered Mental Status Are patient's symptoms suggestive of a new infection, such as: -Pneumonia -Skin, Soft Tissue -Endocarditis -UTI -Bone, Joint Infection -Implantable Device -Acute Abdominal Infection -Wound Infection -Meningitis -Blood Stream Catheter Infection -Unknown System Inflammatory Response Syndrome: Not Applicable Trauma/Injury Complaint Exam - Trauma Complaint/Exam Location of Pain or Injury: Reports: Chest, Abdomen, Back Mechanism of Injury: Reports: Fall Onset/Duration: 2 days ago from standing postion no neck pain Symptoms Are: Still present Timing of Treatment: Delayed Initial Severity: Moderate Current Severity: Mild Character: Reports: Aching Aggravating: Reports: Movement Alleviating: Reports: Rest Associated Signs and Symptoms: Reports: Bruising (left lower chest, flank) Penetrating Injury Risk Factors: Reports: None Related Surgical History: Reports: None Nexus Low Risk Criteria: No post-midline CS tender, No evidence of intoxicat., No Altered LOC, No focal neuro deficit, No distracting injuries Immobilization Removed Post Exam: No Trauma Findings: Absent: [place] eyes, Hemotympanum, Nasal deformity, Dental tenderness, Dental injury, Dental malocclusion, Neck tenderness, Neck spasm, SubQ Air, Crepitus, Airway obstructed, Trachea displaced, Labored respirations, Decreased breath sounds, Muffled heart sounds, Weak pulses, Absent pulses, Abdominal distention, Pelvic tenderness, Pelvic instability, Back malalignment Differential Diagnoses: Fracture, Sprain, Strain Review of Systems - Review Of Systems Constitutional: Reports: No symptoms Eyes: Reports: No symptoms Ears, Nose, Mouth, Throat: Reports: No symptoms Respiratory: Reports: No symptoms Cardiac: Reports: No symptoms GI: Reports: No symptoms : Reports: No symptoms Musculoskeletal: Reports: Back pain Skin: Reports: Other (flank brusing) Neurological: Reports: No symptoms Endocrine: Reports: No symptoms Hematologic/Lymphatic: Reports: No symptoms All Other Systems: Reviewed and Negative Past Medical History - Past Medical History Previously Healthy: Yes Endocrine: Reports: Dyslipidemia Cardiovascular: Reports: Hypertension Respiratory: Reports: COPD Hematological: Reports: None, Anemia Gastrointestinal: Reports: None, GERD, Liver (HEP C) Genitourinary: Reports: None, CKD, Other (ED) Neuro/Psych: Reports: None Musculoskeletal: Reports: Arthritis, Joint Pain (Degen disk dz per recent MRI, according to patient) Cancer: Reports: None - Surgical History General Surgical History: Reports: Orthopedic ( LEFT HIP, BILATERAL FOOT SURGERY ,NECK SURG FUSION 1972, LEFT ARM SURG), Back Surgery (CS FUSION), Other (BOTH FEET; LEFT HIP SURG) - Family History Family History: Reports: Unknown - Social History Smoking Status: Former smoker Hx Substance Use: No Alcohol Screening: None - Immunizations Influenza Vaccine within 12 Months: No Pneumococcal Vaccine up to Date: No Physical Exam - Physical Exam Appearance: Well-appearing, No pain distress, Well-nourished Eyes: REINA, EOMI, Conjunctiva clear ENT: Ears normal, Nose normal, Oropharynx normal Respiratory: Airway patent, Breath sounds clear, Breath sounds equal, Respirations nonlabored Cardiovascular: RRR, Pulses normal, No rub, No murmur GI/: Soft, Nontender, No masses, Bowel sounds normal, No Organomegaly Musculoskeletal: Normal strength, ROM intact, No edema, No calf tenderness Skin: Warm, Dry (15cm brusingleft flank see photo) Neurological: Sensation intact, Motor intact, Reflexes intact, Cranial nerves intact, Alert, Oriented Psychiatric: Affect appropriate, Mood appropriate Physician Notification - Case Discussed Physician Notified: PMD Time of Notification: 12:47 Admit To: Inpatient Critical Care Note - Critical Care Note Total Time (mins): 0 Course - Course Hematology/Chemistry: 08/27/17 10:25 08/27/17 10:25 Orders, Labs, Meds: Lab Review 08/27/17 08/27/17 10:25 10:25 WBC 6.19 RBC 3.07 L Hgb 10.4 L Hct 30.7 L MCV 100.0 H MCH 33.9 H MCHC 33.9 RDW Coeff of Carlita 12.5 Plt Count 143 Immature Gran % (Auto) 0.3 Neut % (Auto) 64.8 Lymph % (Auto) 23.9 Wheeler % (Auto) 9.4 Eos % (Auto) 1.1 Baso % (Auto) 0.5 Immature Gran # (Auto) 0.0 Neut # (Auto) 4.0 Lymph # (Auto) 1.5 Wheeler # (Auto) 0.6 Eos # (Auto) 0.1 Baso # (Auto) 0.0 Sodium 145 Potassium 3.3 L Chloride 111 H Carbon Dioxide 21 L Anion Gap 16.3 BUN 33 H Creatinine 2.71 H Estimated GFR (MDRD) 29.00 BUN/Creatinine Ratio 12.17 Glucose 105 Calcium 9.3 Total Bilirubin 0.4 AST 14 L ALT 11 L Alkaline Phosphatase 103 Total Protein 6.9 Albumin 3.0 L Globulin 3.9 Albumin/Globulin Ratio 0.77 Orders Category Date Time Status NPO REMINDER: IMAGING ONCE CARE 08/27/17 10:14 Completed NPO REMINDER: IMAGING ONCE CARE 08/27/17 10:14 Completed ED IV/MEDIPORT/POWERPORT .ONCE EMERGENCY 08/27/17 10:13 Active CBC W/ AUTO DIFF Stat LAB 08/27/17 10:25 Completed COMPREHENSIVE METABOLIC PANEL Stat LAB 08/27/17 10:25 Completed 0.9 % Sodium Chloride [Saline Flush] MEDS 08/27/17 10:13 Active 1 syr IVF PRN PRN Hydrocodone Bit/Acetaminophen [[place] 10-325] MEDS 08/27/17 10:41 Discontinued 1 tab PO ONCE STA CT ABDOMEN/PELVIS WO CONTRAST Stat RADS 08/27/17 10:[address] CHEST W/O CONTRAST Stat RADS 08/27/17 10:[address] LUMBAR SPINE W/O CONTRAST Stat RADS 08/27/17 10:[address] THORACIC SPINE W/O CONTRAST Stat RADS 08/27/17 10:35 Completed Medications Generic Name Dose Route Start Last Admin Trade Name Freq PRN Reason Stop Dose Admin Sodium Chloride 1 syr 08/27/17 10:13 Saline Flush IVF PRN PRN To flush IV Discontinued Medications Generic Name Dose Route Start Last Admin Trade Name Freq PRN Reason Stop Dose Admin Hydrocodone Bitart/Acetaminophen 1 tab 08/27/17 10:41 08/27/17 10:48 [place] 10-325 PO 08/27/17 10:42 1 tab ONCE STA Administration Vital Signs: Temp Pulse Resp BP Pulse Ox 08/27/17 09:46 97.0 F L 95 H 16 165/99 H 97 Departure - Departure Time of Disposition: 12:44 Disposition: ADMITTED INPATIENT Discharge Problem: Back pain Qualifiers: Back pain location: low back pain Chronicity: unspecified Back pain laterality : left Sciatica presence: without sciatica Qualified Code(s): M54.5 - Low back pain Renal failure (ARF), acute on chronic Qualifiers: Acute renal failure type: unspecified Chronic kidney disease stage: unspecified stage Qualified Code(s): N17.9 - Acute kidney failure, unspecified; N18.9 - Chronic kidney disease, unspecified Anemia Qualifiers: Anemia type: unspecified type Qualified Code(s): D64.9 - Anemia, unspecified Instructions: Flank Pain (ED), Back Pain (ED) Condition: Good Pt referred to PMD for follow-up: Yes IPMP verified?: No Additional Instructions: Please call your Family Physician as soon as possible to schedule a follow-up appointment. Allergies/Adverse Reactions: Allergies lisinopril Allergy (Severe, Verified 08/27/17 09:52) Face swelling Patient to notify drugstore enalaprilat [From Vasotec] Adverse Reaction (Mild, Verified 08/27/17 09:52) Itching Patient experienced facial flushing and itching. Home Medications: Ambulatory Orders Ferrous Sulfate 325 mg PO BID 10/08/14 Cyclobenzaprine HCl [Flexeril] 5 mg PO TID PRN #15 tablet 05/04/16 Clonidine HCl 0.2 mg PO BID #60 tablet 12/29/16 Pantoprazole Sodium [Protonix] 40 mg PO BID #60 tablet. 12/29/16 Potassium Chloride [K-Dur] 20 meq PO DAILY #5 tab 02/03/17 Magnesium Oxide [Magnesium] 400 mg PO BID 02/13/17 Disposition Discussed With: Patient
[2017-08-27] MEDS ORDERED: NORCO 10-325 PO STA (10:41)
--- NOTE | 2017-08-27 12:18 | CT ---
EXAM: CT thoracic spine without contrast HISTORY: Fall. COMPARISON: CT chest same day and CT thoracic spine 07/15/2016 TECHNIQUE: Serial axial images of the thoracic spine were performed without contrast. These were vi ewed in multiple planes. FINDINGS: There is no acute compression fracture or subluxation of the thoracic spine. There is no l ytic or blastic lesion. There is no focal abnormality. There is minimal degenerative disease. There is degenerative disease in the lower cervical spine. The soft tissues demonstrate calcified subcari nal lymph node. Soft tissues in the upper abdomen are unremarkable. IMPRESSION: 1. Multilevel mild degenerative disease of the thoracic spine. 2. No acute compression fracture or subluxation.
--- NOTE | 2017-08-27 12:23 | CT ---
EXAM: CT lumbar spine without contrast. HISTORY: Fall COMPARISON: Same day CT abdomen pelvis. Prior CT lumbar spine 07/15/2016. TECHNIQUE: Serial axial images of the spine were obtained from the lower thoracic spine through the pelvis without contrast. These were viewed in multiple planes. FINDINGS: Vertebral bodies demonstrate no acute compression fracture or subluxation. There is no ly tic or blastic lesion. There are small disc osteophytes at L4-L5 and L5-S1. There is mild to modera te facet arthropathy. There is mild leftward curvature of the lumbar spine. L1-L2: Normal L2-L3: Small broad-based disc bulge and facet arthropathy with mild left neural foraminal narrowing. L3-L4: Facet arthropathy and small broad-based disc bulge with bilateral mild neural foraminal narrow ing. L4-L5: Broad-based disc bulge and facet arthropathy. Bulge is eccentric to the right. This demonstr ates mild right neural foraminal narrowing. L5-S1: Broad-based disc bulge and facet arthropathy with no central or neural foraminal narrowing. Limited views of the soft tissues are better evaluated on same day CT abdomen pelvis. IMPRESSION: 1. No acute compression fracture or subluxation. 2. Multilevel degenerative disease with no greater than mild neural foraminal narrowing at any level . 3. Mild leftward curvature.
--- NOTE | 2017-08-27 12:27 | CT ---
EXAM: CT abdomen pelvis without contrast HISTORY: Fall with left-sided abdominal pain COMPARISON: Same day CT chest and multiple prior CT abdomen pelvis most recent 12/22/2016 TECHNIQUE: Serial axial images of the abdomen pelvis were performed from the lung bases through the inferior pelvis without contrast. These were viewed in multiple planes. FINDINGS: The lung bases are better evaluated on same day CT chest. Evaluation is limited due to lack of contrast. The liver is unremarkable. The gallbladder is contra cted. The adrenal glands are unremarkable. The kidneys are normal without stone or hydronephrosis. The left inferior renal pole 1.7 cm cyst is present. Spleen is normal. The pancreas demonstrates few scattered calcifications. The stomach is mildly distended The small bowel in the abdomen and pelvis is unremarkable. The appendix is normal. The colon is unr emarkable. There is no free fluid or free air. There is a fat-containing umbilical hernia. The osseo us structures are unremarkable with mild degenerative change. IMPRESSION: 1. No acute intra-abdominal or pelvic process. 2. Left renal cyst. 3. Mild degenerative disease of the spine
--- NOTE | 2017-08-27 12:31 | CT ---
Exam: CT chest without intravenous contrast. Comparison: 12/24/2016. Reason for exam: Left chest wall pain. FINDINGS: Image interpretation is limited by the lack of intravenous contrast administration. No pneumothorax or pleural effusion. Ground-glass opacities are seen in both lung bases. No There is mild heterogenicity of the thyroid gland. The aorta is normal in course and caliber. The h eart is not enlarged. Old granulomas disease is seen within the mediastinum. No suspicious appearing osteoblastic or osteolytic lesions. Impression: 1. Mild basilar atelectasis/inflammation bilaterally. Clinical concern exists, follow-up imaging may be performed to document resolution. 2. Heterogenicity of the thyroid gland. Ultrasound is recommended for further characterization. 3. Otherwise, no acute imaging findings are seen within the thorax.
[2017-08-27 13:48] VITALS: BMI 21.4
[2017-08-27] MEDS ORDERED: NON-FORMULARY MEDICATION (Clonidine Hcl [Clonidine Hcl] 0.2 MG) PO SCH (14:15)
[2017-08-27] MEDS: SODIUM CHLORIDE 0.9%-KCL 20 MEQ 1,000 ML IV SCH (14:25)
[2017-08-27] MEDS: CATAPRES PO SCH ×2 (14:41→22:26)
[2017-08-27] MEDS: K-DUR PO SCH (14:42)
[2017-08-27] MEDS: PROTONIX PO SCH (16:13)
[2017-08-27] MEDS ORDERED: ZOFRAN 4 MG/2 ML IVP PRN (19:19)
[2017-08-27] MEDS ORDERED: NON-FORMULARY MEDICATION (Metoprolol Tartrate [Metoprolol Tartrate] 100 MG) PO SCH (21:00)
[2017-08-27] MEDS ORDERED: NON-FORMULARY MEDICATION (Ferrous Sulfate [Ferrous Sulfate] 325 MG) PO SCH (21:00)
[2017-08-27] MEDS ORDERED: PROAIR HFA IH SCH (21:00)
[2017-08-27] MEDS: LOPRESSOR PO SCH (22:26)
[2017-08-27] MEDS: FERROUS SULFATE PO SCH (22:27)
[2017-08-27] MEDS: MAG-OX PO SCH (22:27)
[2017-08-27] MEDS: DEMEROL 50 MG/ML VIAL IVP PRN (22:43)
[2017-08-28] MEDS: SODIUM CHLORIDE 0.9%-KCL 20 MEQ 1,000 ML IV SCH ×2 (02:06→15:07)
[2017-08-28] MEDS: PROTONIX PO SCH ×2 (05:42→17:37)
[2017-08-28] MEDS ORDERED: DECADRON 4 MG/ML SDV IM STA (08:29)
[2017-08-28] MEDS ORDERED: NON-FORMULARY MEDICATION (Hydrochlorothiazide [Hydrochlorothiazide] 12.5 MG) PO SCH (09:00)
[2017-08-28] MEDS: FERROUS SULFATE PO SCH ×2 (09:05→20:19)
[2017-08-28] MEDS: CATAPRES PO SCH ×3 (09:05→20:19)
[2017-08-28] MEDS: K-DUR PO SCH (09:05)
[2017-08-28] MEDS: LIPITOR PO SCH (09:05)
[2017-08-28] MEDS: LOPRESSOR PO SCH ×2 (09:06→20:19)
[2017-08-28] MEDS: HYDROCHLOROTHIAZIDE PO SCH (09:06)
[2017-08-28] MEDS: MAG-OX PO SCH ×2 (09:06→20:19)
[2017-08-28] MEDS: DUONEB NEB SCH ×3 (09:55→22:18)
--- NOTE | 2017-08-28 12:53 | HP ---
DATE OF SERVICE: 08/27/17 CHIEF COMPLAINT/HISTORY OF PRESENT ILLNESS: This is a 62 year old male with the multiple medical problems; CHF and history of cervical spine surgery. He has motorized wheelchair and fell down against the sink on Sunday trying to get off the bathroom. As pain and swelling to the left thoracic area, left chest area. He says that he is not on the Pain Management anymore. He is hurting and hurting to breathe. The patient was seen by Dr. Blas in the emergency room and found to have acute renal failure, hypokalemia and hgb of 10.4. At that time the patient being admitted to the hospital for the IV fluids and pain control. REVIEW OF SYSTEMS: CONSTITUTIONAL: No fever, no chills. Weakness and tiredness. HEENT: Normal. ENDOCRINE: No weight gain; no weight loss. CVS: Chest pain. No PND, no orthopnea. No shortness of breath. No PND, no orthopnea. RESPIRATORY: No cough, no congestion. No hemoptysis. GI: No nausea, no vomiting. No abdominal pain. No melena. : No hematuria. No polyuria. MUSCULOSKELETAL: No joint swelling. Lower extremity and the back pain. PSYCHIATRIC: Not anxious. No depression. No suicidal thoughts. No homicidal thoughts. SKIN: Intact, no open lesions. PAST MEDICAL HISTORY: Hypertension Dyslipidemia Osteoarthritis DJD spine GERD Anemia Leg edema CHF BPH Hepatitis C Anxiety Alcohol use PAST SURGICAL HISTORY: History of post cervical fusion Tendon repair on the arm Hammer toe Bunionectomy Polyps removed PERSONAL HISTORY: The patient does smoke. Alcohol occasionally. Lives at home. FAMILY HISTORY: Heart problem Diabetes MEDICATIONS: Ferrous Sulfate Flexeril Clonidine Protonix Ventolin K-Dur Metoprolol Magnesium Hydrochlorothiazide Lipitor ALLERGIES: Lisinopril Enalaprilat PHYSICAL EXAMINATION: V/S: Blood pressure 165/99, respiratory rate 95, temperature 97.0 and saturation 97%. HEENT: Atraumatic, normocephalic. No scleral icterus. Pallor positive. Mucosa dry. NECK: Supple. No JVD, no bruit. No lymphadenopathy. No thyromegaly. HEART: S1, S2 normal. No murmur. No cyanosis or clubbing. No ascites. LUNGS: Clear to auscultation. No rales or rhonchi. ABDOMEN: Soft, nontender. Bowel sounds are active. No CVA tenderness. No rigidity or guarding. EXTREMITIES: No pedal edema. No cyanosis or clubbing MUSCULOSKELETAL: Normal joints, no swelling. Range of motion is normal at the knee and ankles and shoulder. NEUROLOGIC: The patient is SKIN: Intact; no open lesions. Bruising is seen on the left thoracic area. LYMPHATIC: No lymph nodes palpable. LABS: WBC 6.19, hgb 10.4, hct 30.7, plt count 243, sodium 145, potassium 3.3, chloride 111, bicarb 27, BUN 33, creatinine 2.71, glucose 105. ASSESSMENT: 1. Status post fall, thoracic contusion and bruising area 2. Acute on chronic renal failure 3. Anemia 4. Hepatitis C 5. Frequent falls 6. Cervical spine surgery 7. Uncontrolled hypertension PLAN: 1. Admit patient to the regular floor 2. CBC and CMP today and daily 3. IV fluids 4. Continue home medication 5. Demerol for the pain TIME SPENT: MORE THAN 70 minutes MTDD
[2017-08-28] MEDS: COZAAR PO SCH (17:38)
[2017-08-28] MEDS ORDERED: ATIVAN PO STA (20:07)
[2017-08-28] MEDS ORDERED: LASIX IVP STA (20:07)
[2017-08-28] MEDS ORDERED: LOPRESSOR IVP STA (22:12)
[2017-08-28] MEDS: DEMEROL 50 MG/ML VIAL IVP PRN (22:31)
[2017-08-29] MEDS: SODIUM CHLORIDE 0.9%-KCL 20 MEQ 1,000 ML IV SCH (04:15)
[2017-08-29] MEDS: DUONEB NEB SCH (05:00)
[2017-08-29] MEDS: PROTONIX PO SCH ×2 (05:35→16:00)
[2017-08-29] MEDS ORDERED: DUONEB NEB PRN (08:33)
[2017-08-29] MEDS: CATAPRES PO SCH ×3 (09:07→20:28)
[2017-08-29] MEDS: FERROUS SULFATE PO SCH ×2 (09:08→20:28)
[2017-08-29] MEDS: HYDROCHLOROTHIAZIDE PO SCH (09:08)
[2017-08-29] MEDS: COZAAR PO SCH (09:08)
[2017-08-29] MEDS: K-DUR PO SCH (09:09)
[2017-08-29] MEDS: LIBRIUM PO SCH ×3 (09:09→20:28)
[2017-08-29] MEDS: MAG-OX PO SCH ×2 (09:10→20:29)
[2017-08-29] MEDS: LIPITOR PO SCH (09:10)
[2017-08-29] MEDS: LOPRESSOR PO SCH ×2 (09:10→20:28)
[2017-08-29] MEDS: FOLIC ACID 1 MG, INFUVITE ADULT 10 ML, THIAMINE 100 MG in SODIUM CHLORIDE 1,000 ML IV SCH (09:32)
--- NOTE | 2017-08-29 09:40 | PN ---
DATE OF SERVICE: 08/28/17 SUBJECTIVE: The patient was admitted with status post fall and uncontrolled hypertension and left chest contusion. CT and x-ray did not show any fractures. Blood pressure is still high, Clonidine is being given twice a day. Hgb did drop from 10.4 to 8.6 most likely from the hemodilution. BUN and creatinine is steady. REVIEW OF SYSTEMS: CONSTITUTIONAL: No fever, no chills. HEENT: Normal. ENDOCRINE: No weight gain, no weight loss. CVS: No angina symptoms. No CHF symptoms. No palpitations. No atypical chest pain for CAD. No shortness of breath. No PND, no orthopnea. RESPIRATORY: No cough, no hemoptysis. GI: No nausea, no vomiting. No abdominal pain. : No hematuria. No polyuria. MUSCULOSKELETAL: No joint swelling. PSYCHIATRIC: Not anxious. No depression. No suicidal thoughts. No homicidal thoughts. SKIN: Intact. No rash. PHYSICAL EXAMINATION: V/S: Blood pressure 152/92, respiratory rate 18, heart rate 64, temperature 97.7 with saturation 98%. HEENT: Normocephalic, atraumatic. Mucosa dry. Pallor positive. No icterus. NECK: Supple. No JVD, no carotid bruit. No lymphadenopathy. LUNGS: Clear to auscultation. No rales or rhonchi. HEART: S1, S2 normal. No S3. No murmur, gallop or regurgitation. Left chest tenderness is present and bruising is present. ABDOMEN: Soft, nontender. Bowel sounds active. No rigidity. No rebound or guarding. No CVA tenderness. EXTREMITIES: No cyanosis, clubbing or pedal edema. MUSCULOSKELETAL: No joint swelling. NEUROLOGIC: Awake, alert, oriented times three. No focal deficit. LYMPHATIC: No lymph nodes palpable. SKIN: Intact. LABS: Sodium 139, potassium 3.9, chloride 110, bicarb 21, BUN 35, creatinine 2.66, glucose 125, WBC 6.14, hgb 8.6, hct 25.1, plt count 113. ASSESSMENT: 1. Status post fall with left chest contusion 2. Acute on chronic renal failure 3. Hypertension, uncontrolled 4. History of TIA 5. History of Cervical spine surgery 6. Osteoarthritis 7. DJD spine PLAN: 1. Continue the IV fluids 2. Dexamethasone one dose 3. DUO NEBS 4. Will add the Losartan 50mg PO daily 5. IV fluids 6. Keep the legs elevated Will follow the patient in daily rounds. TIME SPENT: More than 35 minutes MTDD
[2017-08-29] MEDS ORDERED: LOPRESSOR IVP STA (10:16)
--- NOTE | 2017-08-29 15:21 | US ---
EXAM: Ultrasound thyroid 08/29/2017 HISTORY: Abnormal findings on chest CT COMPARISON: CT 08/27/2017 FINDINGS: The right lobe of the thyroid measures 4.2 x 1.9 x 1.6 cm diameter. The left lobe measure s 3.0 x 1.3 x 1.2 cm diameter. Isthmus 4 mm. Hypoechoic nodular focus within the posterior aspect of the right lobe measures 1.1 x 1.1 x 1.3 cm. Adjacent isoechoic nodular density measures 0.9 x 1.1 x 1.0 cm diameter. These lesions show internal blood flow. These do not appear hypervascular. No nodule identified within the left lobe. IMPRESSION: Subtle nodularity within the right lobe as described above.
[2017-08-29] MEDS: APRESOLINE PO SCH ×2 (16:00→20:28)
--- NOTE | 2017-08-29 16:18 | CT ---
EXAM: CT head without contrast HISTORY: Hypertension COMPARISON: None TECHNIQUE: Serial axial images of the brain were obtained from the skull base to the vertex without IV contrast. FINDINGS: The ventricles, cisterns and sulci demonstrate minimal generalized volume loss. There is scattered low attenuation in the periventricular white matter. The dalton-white matter junction is quita ntained. No midline shift or mass is identified. There is no abnormal intra or extra-axial fluid co llection. The paranasal sinuses and mastoid air cells are clear. The osseous calvarium is intact. IMPRESSION: 1. Mild generalized volume loss with scattered microangiopathy. If further evaluation is clinically indicated, MRI may be obtained.
[2017-08-29] MEDS: TRANDATE 100 MG in SODIUM CHLORIDE 80 ML IV SCH ×5 (16:53→20:39)
[2017-08-29] MEDS ORDERED: ATIVAN PO STA (20:20)
[2017-08-29] MEDS: TRANDATE PO SCH (20:42)
[2017-08-30] MEDS: TRANDATE PO SCH ×4 (01:36→20:42)
[2017-08-30] MEDS: FOLIC ACID 1 MG, INFUVITE ADULT 10 ML, THIAMINE 100 MG in SODIUM CHLORIDE 1,000 ML IV SCH (01:44)
[2017-08-30] MEDS ORDERED: SODIUM CHLORIDE IV SCH (02:00)
[2017-08-30] MEDS ORDERED: FOLIC ACID IV SCH (02:00)
[2017-08-30] MEDS ORDERED: THIAMINE IV SCH (02:00)
[2017-08-30] MEDS ORDERED: INFUVITE ADULT IV SCH (02:00)
[2017-08-30] MEDS: APRESOLINE PO SCH ×3 (04:58→20:42)
[2017-08-30] MEDS: PROTONIX PO SCH ×2 (05:53→17:00)
[2017-08-30] MEDS: MAG-OX PO SCH ×2 (08:43→20:43)
[2017-08-30] MEDS: LOPRESSOR PO SCH ×2 (08:43→20:43)
[2017-08-30] MEDS: FERROUS SULFATE PO SCH ×2 (08:43→20:42)
[2017-08-30] MEDS: COZAAR PO SCH (08:43)
[2017-08-30] MEDS: LIPITOR PO SCH (08:43)
[2017-08-30] MEDS: K-DUR PO SCH (08:44)
[2017-08-30] MEDS: CATAPRES PO SCH ×3 (08:44→20:42)
[2017-08-30] MEDS: HYDROCHLOROTHIAZIDE PO SCH (08:44)
[2017-08-30] MEDS: LIBRIUM PO SCH ×3 (08:47→20:43)
--- NOTE | 2017-08-30 15:22 | DI ---
Exam: Chest two-view History: Wheezing FINDINGS: Lung volumes are diminished. No infiltrative opacities. Normal cardiomediastinal contour s. No acute chest wall abnormality. Impression: Diminished lung volumes without obvious acute cardiopulmonary disease.
[2017-08-31] MEDS: DEMEROL 50 MG/ML VIAL IVP PRN ×2 (02:01→20:51)
[2017-08-31] MEDS: TRANDATE PO SCH ×4 (02:01→20:50)
[2017-08-31] MEDS: APRESOLINE PO SCH ×3 (05:52→20:50)
[2017-08-31] MEDS: PROTONIX PO SCH ×2 (05:52→16:09)
[2017-08-31] MEDS: HYDROCHLOROTHIAZIDE PO SCH (09:28)
[2017-08-31] MEDS: COZAAR PO SCH (09:29)
[2017-08-31] MEDS: LIPITOR PO SCH (09:30)
[2017-08-31] MEDS: K-DUR PO SCH (09:30)
[2017-08-31] MEDS: LIBRIUM PO SCH ×2 (09:30→20:49)
[2017-08-31] MEDS: FERROUS SULFATE PO SCH ×2 (09:30→20:49)
[2017-08-31] MEDS: MAG-OX PO SCH ×2 (09:30→20:49)
[2017-08-31] MEDS: CATAPRES PO SCH ×3 (09:30→20:49)
[2017-08-31] MEDS: LOPRESSOR PO SCH (11:10)
[2017-09-01] MEDS: TRANDATE PO SCH ×4 (02:03→20:04)
[2017-09-01] MEDS: APRESOLINE PO SCH ×3 (05:40→20:04)
[2017-09-01] MEDS: PROTONIX PO SCH ×2 (05:40→16:35)
[2017-09-01] MEDS: CATAPRES PO SCH ×3 (08:50→20:08)
[2017-09-01] MEDS: LIPITOR PO SCH (08:51)
[2017-09-01] MEDS: HYDROCHLOROTHIAZIDE PO SCH (08:51)
[2017-09-01] MEDS: COZAAR PO SCH (08:51)
[2017-09-01] MEDS: MAG-OX PO SCH ×2 (08:51→20:04)
[2017-09-01] MEDS: K-DUR PO SCH (08:51)
[2017-09-01] MEDS: FERROUS SULFATE PO SCH ×2 (08:51→20:04)
[2017-09-01] MEDS: LIBRIUM PO SCH (08:51)
--- NOTE | 2017-09-01 19:46 | CT ---
EXAM: Noncontrast CT head. HISTORY: Lethargy COMPARISON: 08/29/2017 CT head TECHNIQUE: Noncontrast CT head was performed with axial, coronal and sagittal reconstructions. Findings: There is preservation of the datlon-white differential without evidence of definitive large vessel acut e cortical infarct identified. No acute intracranial hemorrhage is identified. No midline shift is i dentified. No definitive intracranial mass lesion is identified within technical limitations of nonco ntrast CT. The basal cisterns are patent. There is minimal ventricular enlargement suggesting diffus e brain parenchymal volume loss. Bilateral white matter hypodensities are present. Limited evaluation of the skull demonstrates no visualized lucent skull acute fractures or destructive osseous lesions identified within the visualized portions of the skull. Partially visualized paranasal sinuses and m astoid air cells appear relatively clear in the visualized regions. Impression: 1. No acute intracranial hemorrhage or definitive large vessel acute cortical infarct identified. 2. Diffuse minimal brain parenchymal volume loss likely age related. 3. Bilateral white matter hypodensities which are not specicific but can be seen with chronic microva scular ischemic disease.
[2017-09-02] MEDS: TRANDATE PO SCH ×2 (02:54→08:42)
[2017-09-02] MEDS: PROTONIX PO SCH ×2 (06:02→17:11)
[2017-09-02] MEDS: APRESOLINE PO SCH (06:02)
[2017-09-02] MEDS: HYDROCHLOROTHIAZIDE PO SCH (08:42)
[2017-09-02] MEDS: MAG-OX PO SCH (08:43)
[2017-09-02] MEDS: LIPITOR PO SCH (08:43)
[2017-09-02] MEDS: COZAAR PO SCH (08:43)
[2017-09-02] MEDS: K-DUR PO SCH (08:43)
[2017-09-02] MEDS: FERROUS SULFATE PO SCH ×2 (08:43→21:12)
[2017-09-02] MEDS: CATAPRES PO SCH (10:13)
[2017-09-02] MEDS ORDERED: KAYEXALATE SUSP PO STA (13:13)
[2017-09-02] MEDS: SODIUM CHLORIDE 1,000 ML IV SCH (13:57)
[2017-09-02] MEDS ORDERED: APRESOLINE PO SCH (21:00)
[2017-09-03] MEDS: PROTONIX PO SCH ×2 (06:24→16:13)
[2017-09-03] MEDS: FERROUS SULFATE PO SCH ×2 (08:53→21:05)
[2017-09-03] MEDS: LIPITOR PO SCH (08:53)
--- NOTE | 2017-09-03 09:20 | PN ---
DATE OF SERVICE: 08/29/17 EXTRA NOTE + SUBJECTIVE: The patient's blood pressure is constantly elevated, start giving the IV push Labetalol and it is not getting better and it went up to 187/100, 171/104 and then went up to 191/112. The patient was more lethargic than usual so ordered CT of the head and transferred the patient to the ICU and will be starting the patient on the Labetalol IV drip. REVIEW OF SYSTEMS: CONSTITUTIONAL: No fever, no chills. HEENT: Normal. ENDOCRINE: No weight gain, no weight loss. CVS: No angina symptoms. No CHF symptoms. No palpitations. No atypical chest pain for CAD. No shortness of breath. No PND, no orthopnea. RESPIRATORY: No cough, no hemoptysis. GI: No nausea, no vomiting. No abdominal pain. : No hematuria. No polyuria. MUSCULOSKELETAL: No joint swelling. PSYCHIATRIC: Not anxious. No depression. No suicidal thoughts. No homicidal thoughts. SKIN: Intact. No rash. PHYSICAL EXAMINATION: HEENT: Normocephalic, atraumatic. Mucosa . NECK: Supple. No JVD, no carotid bruit. No lymphadenopathy. LUNGS: Basilar crackles are heard. Clear to auscultation. No rales or rhonchi. HEART: S1, S2 normal. No S3. No murmur, gallop or regurgitation. ABDOMEN: Soft, nontender. Bowel sounds active. No rigidity. No rebound or guarding. No CVA tenderness. EXTREMITIES: No cyanosis, clubbing. 1+ leg edema. MUSCULOSKELETAL: No joint swelling. NEUROLOGIC: Awake, alert, oriented times three. No focal deficit. Lethargic. Awake by verbal stimulation and goes back to sleep. LYMPHATIC: No lymph nodes palpable. SKIN: Intact. TIME SPENT: More than 35 minutes MTDD
--- NOTE | 2017-09-03 09:26 | PN ---
DATE OF SERVICE: 08/30/17 SUBJECTIVE: CT scan of the head negative; did not show any stroke. The patient's urine drug screen came positive for the cocaine. When we asked the patient he told us that it was two weeks ago. REVIEW OF SYSTEMS: CONSTITUTIONAL: No fever, no chills. HEENT: Normal. ENDOCRINE: No weight gain, no weight loss. CVS: No angina symptoms. No CHF symptoms. No palpitations. No atypical chest pain for CAD. Some shortness of breath. No PND, no orthopnea. RESPIRATORY: No cough, no hemoptysis. GI: No nausea, no vomiting. No abdominal pain. : No hematuria. No polyuria. MUSCULOSKELETAL: No joint swelling. PSYCHIATRIC: Not anxious. No depression. No suicidal thoughts. No homicidal thoughts. SKIN: Intact. No rash. PHYSICAL EXAMINATION: V/S: Blood pressure 169/93, respiratory 20, heart rate 72, temperature 97.7. HEENT: Normocephalic, atraumatic. Mucosa dry. NECK: Supple. No JVD, no carotid bruit. No lymphadenopathy. LUNGS: Decreased and clear to auscultation. No rales or rhonchi. HEART: S1, S2 normal. No S3. No murmur, gallop or regurgitation. ABDOMEN: Soft, nontender. Bowel sounds active. No rigidity. No rebound or guarding. No CVA tenderness. EXTREMITIES: No cyanosis, clubbing or pedal edema. MUSCULOSKELETAL: No joint swelling. NEUROLOGIC: Awake, alert, oriented times three. No focal deficit. Response to the verbal stimuli and goes back to sleep. LYMPHATIC: No lymph nodes palpable. SKIN: Intact. LABS: Sodium 136, potassium 4.9m, chloride 109, bicarb 20, BUN 26, creatinine 2.14, glucose 165, WBC 7.45, hgb 9.4, hct 27.4, plt count 145. ASSESSMENT: 1. Hypertension, urgency 2. Alcohol withdraw 3. Cocaine use 4. Acute on chronic renal failure 5. History of CHF 6. Hepatitis C 7. Cervical fusion PLAN: 1. Continue Labetalol IV push Q 8 hours 2. Hydralazine 50 Q hours 3. Clonidine 0.2 is stopped 4. Continue Metoprolol 100mg twice a day 5. Librium 6. IV fluids 7. Daily I&O's TIME SPENT: More than 35 minutes MTDD
--- NOTE | 2017-09-03 09:33 | PN ---
DATE OF SERVICE: 08/31/17 SUBJECTIVE: The patient is lethargic. He did get Ativan yesterday evening for the restlessness and anxiety. REVIEW OF SYSTEMS: CONSTITUTIONAL: No fever, no chills. HEENT: Normal. ENDOCRINE: No weight gain, no weight loss. CVS: No angina symptoms. No CHF symptoms. No palpitations. No atypical chest pain for CAD. No shortness of breath. No PND, no orthopnea. RESPIRATORY: No cough, no hemoptysis. GI: No nausea, no vomiting. No abdominal pain. : No hematuria. No polyuria. MUSCULOSKELETAL: No joint swelling. PSYCHIATRIC: Not anxious. No depression. No suicidal thoughts. No homicidal thoughts. SKIN: Intact. No rash. PHYSICAL EXAMINATION: V/S: Blood pressure 178/100, respiratory 16, heart 61, temperature 97.7. HEENT: Normocephalic, atraumatic. Mucosa dry. Pallor positive. No icterus. NECK: Supple. No JVD, no carotid bruit. No lymphadenopathy. LUNGS: Decreased and basilar crackles. Clear to auscultation. No rales or rhonchi. HEART: S1, S2 normal. No S3. No murmur, gallop or regurgitation. ABDOMEN: Soft, nontender. Bowel sounds active. No rigidity. No rebound or guarding. No CVA tenderness. EXTREMITIES: No cyanosis, clubbing or pedal edema. MUSCULOSKELETAL: No joint swelling. NEUROLOGIC: Awake, alert, oriented times three. No focal deficit. LYMPHATIC: No lymph nodes palpable. SKIN: Intact. LABS: WBC 7.45, hgb 9.4, hct 27.4, plt count 145, sodium 136, potassium 4.9, chloride 109, bicarb 20, BUN 26, creatinine 2.14, glucose 65. ASSESSMENT: 1. Hypertension urgency with change in mental status 2. Cocaine use 3. Alcohol withdraw 4. CHF 5. Chronic kidney disease 6. Anemia 7. Hepatis C 8. Cervical fusion PLAN: 1. Decrease the Librium to 25 twice a day 2. Will stop the Ativan 1mg IV push PO at night time 3. Continue Losartan 50mg PO daily 4. Labetalol 200mg PO Q 6 hours 5. Metoprolol 100mg twice a day 6. Hydralazine 50mg PO Q 8 hours 7. Clonidine 0.2 PO twice a day TIME SPENT: More than 35 minutes MTDD
--- NOTE | 2017-09-03 09:52 | PN ---
DATE OF SERVICE: 08/29/17 SUBJECTIVE: The patient was admitted for the falls and the acute renal failure now complicated with the elevated blood pressure. The patient has been getting IV Metoprolol for the blood pressure along with his own medications. REVIEW OF SYSTEMS: CONSTITUTIONAL: No fever, no chills. HEENT: Normal. ENDOCRINE: No weight gain, no weight loss. CVS: No angina symptoms. No CHF symptoms. No palpitations. No atypical chest pain for CAD. No shortness of breath. No PND, no orthopnea. RESPIRATORY: No cough, no hemoptysis. GI: No nausea, no vomiting. No abdominal pain. : No hematuria. No polyuria. MUSCULOSKELETAL: No joint swelling. PSYCHIATRIC: Not anxious. No depression. No suicidal thoughts. No homicidal thoughts. SKIN: Intact. No rash. PHYSICAL EXAMINATION: V/S: blood pressure 165/100, respiratory rate 16, heart rate 65, temperature 97.5 and saturation 100. HEENT: Normocephalic, atraumatic. Mucosa dry. Pallor positive. No icterus. NECK: Supple. No JVD, no carotid bruit. No lymphadenopathy. LUNGS: Clear to auscultation. No rales or rhonchi. HEART: S1, S2 normal. No S3. No murmur, gallop or regurgitation. ABDOMEN: Soft, nontender. Bowel sounds active. No rigidity. No rebound or guarding. No CVA tenderness. EXTREMITIES: No cyanosis, clubbing or pedal edema. MUSCULOSKELETAL: No joint swelling. NEUROLOGIC: Awake, alert, oriented times three. No focal deficit. LYMPHATIC: No lymph nodes palpable. SKIN: Intact. LABS: WBc 7.45, hgb 9.4, hct 27.4, plt count 145, sodium 136, potassium 4.9, chloride 109, bicarb 20, BUN 26, creatinine 2.14, glucose 165. ASSESSMENT: 1. Hypertensive urgency 2. Status post fall 3. Acute renal failure 4. Dehydration 5. Chest contusion 6. History of C spine surgery 7. Hepatitic C 8. CAD 9. CHF PLAN: 1. Continue Clonidine 0.2 twice a day 2. Lorazepam PRN 3. Metoprolol 100mg twice a day 4. IV fluids TIME SPENT: More than 35 minutes MTDD
--- NOTE | 2017-09-03 14:03 | PN ---
DATE OF SERVICE: 09/01/17 SUBJECTIVE: The patient was admitted with status post fall, chest contusion, acute renal failure, hypertensive urgency and blood pressure being higher. The patient is less active and complains about the shortness of breath. REVIEW OF SYSTEMS: CONSTITUTIONAL: No fever, no chills. HEENT: Normal. ENDOCRINE: No weight gain, no weight loss. CVS: No angina symptoms. No CHF symptoms. No palpitations. No atypical chest pain for CAD. Shortness of breath. No PND, no orthopnea. RESPIRATORY: No cough, no hemoptysis. GI: No nausea, no vomiting. No abdominal pain. : No hematuria. No polyuria. MUSCULOSKELETAL: No joint swelling. PSYCHIATRIC: Not anxious. No depression. No suicidal thoughts. No homicidal thoughts. SKIN: Intact. No rash. PHYSICAL EXAMINATION: V/S: Blood pressure 160/90, respiratory rate 16, heart rate 57, temperature 97.6 with saturation 99%. HEENT: Normocephalic, atraumatic. Mucosa dry. Pallor positive. No icterus. NECK: Supple. No JVD, no carotid bruit. No lymphadenopathy. LUNGS: Decreased and basilar crackles. Clear to auscultation. No rales or rhonchi. HEART: S1, S2 normal. No S3. No murmur, gallop or regurgitation. ABDOMEN: Soft, nontender. Bowel sounds active. No rigidity. No rebound or guarding. No CVA tenderness. EXTREMITIES: No cyanosis, clubbing. 1+ edema. MUSCULOSKELETAL: No joint swelling. NEUROLOGIC: Awake, alert responds to the verbal stimuli and goes back to sleep. No focal deficit. LYMPHATIC: No lymph nodes palpable. SKIN: Intact. Dry LABS: WBC 6.51, hgb 9.4, hct 27.7, plt count 126, sodium 140, potassium 5.1, chloride 111, Bicarb 21, BUN 34, creatinine 2.64 and glucose 127. ASSESSMENT: 1. Hypertensive urgency which is getting better 2. Cocaine use 3. Acute renal failure, kidney function is steady 4. Anemia 5. Hepatitic C 6. DJD spine 7. Cervical spine surgery 8. CHF PLAN: 1. Continue the Hydralazine 2. Librium twice a day 3. Hydrochlorothiazide daily 4. DUO NEBS 5. Labetalol 200 Q 6 hours 6. Demerol for the pain 7. Protonix 8. Out of bed to chair with the help 9. No anticoagulation as patient had history of GI bleed. TIME SPENT: More than 35 minutes MTDD
[2017-09-03] MEDS: SODIUM CHLORIDE 1,000 ML IV SCH (14:11)
[2017-09-03] MEDS ORDERED: TRANDATE PO SCH (17:30)
[2017-09-04] MEDS: PROTONIX PO SCH ×2 (05:52→16:35)
[2017-09-04] MEDS: FERROUS SULFATE PO SCH ×2 (09:07→20:00)
[2017-09-04] MEDS: COZAAR PO SCH (09:07)
[2017-09-04] MEDS: LIPITOR PO SCH (09:07)
--- NOTE | 2017-09-04 12:46 | PN ---
DATE OF SERVICE: 09/02/17 SUBJECTIVE: The patient is sitting in the room, he has been crying says that he is scared of having something happen to him and says that he has done a lot of bad things in his life and took the drugs. He has been all teary all day. Blood pressure dropped to 92/56 and 86/55 and went up to 92/58 by 11:30. The patient's family been meeting and he has been up and more active and more crying. REVIEW OF SYSTEMS: CONSTITUTIONAL: No fever, no chills. HEENT: Normal. ENDOCRINE: No weight gain, no weight loss. CVS: No angina symptoms. No CHF symptoms. No palpitations. No atypical chest pain for CAD. No shortness of breath. No PND, no orthopnea. RESPIRATORY: No cough, no hemoptysis. GI: No nausea, no vomiting. No abdominal pain. : No hematuria. No polyuria. MUSCULOSKELETAL: No joint swelling. PSYCHIATRIC: Not anxious. No depression. No suicidal thoughts. No homicidal thoughts. SKIN: Intact. No rash. PHYSICAL EXAMINATION: V/S: Blood pressure 92/58, respiratory rate 18, heart rate 78, temperature 96.8 with saturation 98%. HEENT: Normocephalic, atraumatic. Mucosa dry. Pallor positive. No icterus. NECK: Supple. No JVD, no carotid bruit. No lymphadenopathy. LUNGS: Decreased and clear to auscultation. No rales or rhonchi. HEART: S1, S2 normal. No S3. No murmur, gallop or regurgitation. ABDOMEN: Soft, nontender. Bowel sounds active. No rigidity. No rebound or guarding. No CVA tenderness. EXTREMITIES: No cyanosis, clubbing. 1+ edema. MUSCULOSKELETAL: No joint swelling. NEUROLOGIC: Awake, alert, oriented times three. No focal deficit. LYMPHATIC: No lymph nodes palpable. SKIN: Intact. LABS: WBC 7.30, hgb 9.0, hct 27.8, plt count 135, sodium 137, potassium 6.2, chloride 110, bicarb 20, BUN 38, creatinine 3.08, glucose 111. ASSESSMENT: 1. Hyperkalemia 2. Acute on chronic renal failure 3. History of CHF 4. Cocaine use 5. History of alcoholism 6. Cervical spine surgery 7. Anemia 8. Hepatitis C PLAN: 1. Lactulose 2. Kayexalate 20mg 3. Apresoline 4. Start the IV fluids at 40ml per hour 5. Breathing treatment with Albuterol one time 6. Decreased the Hydralazine to 50mg Q 8 hours 7. Daily I&O's TIME SPENT: More than 35 minutes MTDD
--- NOTE | 2017-09-04 13:07 | PN ---
DATE OF SERVICE: 09/03/17 SUBJECTIVE: The patient is still lethargic, responses to the verbal stimuli and goes back to sleep. Potassium came better 5.5 which was 6.2-6.4 yesterday. Did have 3-4 bowel movements, positive for occult blood test and hgb dropped to 8.5. The patient did have history of hepatitis C and history of the GI bleed. REVIEW OF SYSTEMS: CONSTITUTIONAL: No fever, no chills. HEENT: Normal. ENDOCRINE: No weight gain, no weight loss. CVS: No angina symptoms. No CHF symptoms. No palpitations. No atypical chest pain for CAD. No shortness of breath. No PND, no orthopnea. RESPIRATORY: No cough, no hemoptysis. GI: No nausea, no vomiting. No abdominal pain. : No hematuria. No polyuria. MUSCULOSKELETAL: No joint swelling. PSYCHIATRIC: Not anxious. No depression. No suicidal thoughts. No homicidal thoughts. SKIN: Intact. No rash. PHYSICAL EXAMINATION: V/S: Blood pressure 127/79, respiratory rate 18, heart rate 90, temperature 97.8 with saturation 98%. HEENT: Normocephalic, atraumatic. Mucosa dry. Pallor positive. No icterus. NECK: Supple. No JVD, no carotid bruit. No lymphadenopathy. LUNGS: Decreased and basilar crackles. Clear to auscultation. No rales or rhonchi. HEART: S1, S2 normal. No S3. No murmur, gallop or regurgitation. ABDOMEN: Soft, nontender. Bowel sounds active. No rigidity. No rebound or guarding. No CVA tenderness. EXTREMITIES: No cyanosis, clubbing or pedal edema. MUSCULOSKELETAL: No joint swelling. NEUROLOGIC: Responses to the verbal stimuli and goes back to sleep. Arousable. No focal deficit. LYMPHATIC: No lymph nodes palpable. SKIN: Intact. LABS: WBC 7.10, hgb 8.5, hct 26.2, plt count 130, sodium 140, potassium 5.5, chloride 111, bicarb 19, BUN 42, creatinine 3.20 and glucose 110. ASSESSMENT: 1. Change in mental status most likely from the cocaine withdraw versus alcohol withdraw 2. Hyperkalemia which is better 3. Acute on chronic renal failure 4. Anemia with lower GI bleed 5. Hepatitic C positive PLAN: 1. Resume Losartan and Labetalol today 2. IV fluids 3. Daily I&O's 4. No Librium or Ativan at this time TIME SPENT: More than 35 minutes MTDD
[2017-09-04] MEDS: TRANDATE PO SCH ×2 (13:37→20:01)
[2017-09-04] MEDS: SODIUM CHLORIDE 1,000 ML IV SCH (13:48)
[2017-09-04] MEDS: NORCO 5-325 PO SCH (20:15)
[2017-09-05] MEDS: NORCO 5-325 PO SCH ×3 (05:19→20:37)
[2017-09-05] MEDS: TRANDATE PO SCH ×3 (05:20→20:37)
[2017-09-05] MEDS: PROTONIX PO SCH ×2 (05:34→17:02)
[2017-09-05] MEDS: CATAPRES PO SCH ×3 (09:27→20:38)
[2017-09-05] MEDS: LIPITOR PO SCH (09:27)
[2017-09-05] MEDS: FERROUS SULFATE PO SCH ×2 (09:27→20:37)
[2017-09-05] MEDS: COZAAR PO SCH (09:27)
--- NOTE | 2017-09-05 13:51 | PN ---
DATE OF SERVICE: 09/04/17 SUBJECTIVE: The patient is more and awake and alert. Blood pressure has been getting slowly better; 128/74, 110/70. Hgb is stable 8.2 with positive Occult blood test. REVIEW OF SYSTEMS: CONSTITUTIONAL: No fever, no chills. HEENT: Normal. ENDOCRINE: No weight gain, no weight loss. CVS: No angina symptoms. No CHF symptoms. No palpitations. No atypical chest pain for CAD. No shortness of breath. No PND, no orthopnea. RESPIRATORY: No cough, no hemoptysis. GI: No nausea, no vomiting. No abdominal pain. : No hematuria. No polyuria. MUSCULOSKELETAL: No joint swelling. PSYCHIATRIC: Not anxious. No depression. No suicidal thoughts. No homicidal thoughts. SKIN: Intact. No rash. PHYSICAL EXAMINATION: V/S: Blood pressure 128/74, respiratory rate 24, heart rate 87, temperature 97.6 with saturation 98%. HEENT: Normocephalic, atraumatic. Mucosa dry. Pallor positive. No icterus. NECK: Supple. No JVD, no carotid bruit. No lymphadenopathy. LUNGS: Bilateral entry is decreased and clear to auscultation. No rales or rhonchi. HEART: S1, S2 normal. No S3. No murmur, gallop or regurgitation. ABDOMEN: Soft, nontender. Bowel sounds active. No rigidity. No rebound or guarding. No CVA tenderness. EXTREMITIES: No cyanosis, clubbing or pedal edema. MUSCULOSKELETAL: No joint swelling. NEUROLOGIC: Awake, alert, oriented times three. No focal deficit. LYMPHATIC: No lymph nodes palpable. SKIN: Intact. LABS: WBC 6.79, hgb 8.2, hct 25.5, plt count 145, sodium 141, potassium 5.3, chloride 111, bicarb 19, BUN 42, creatinine 3.20 and glucose 119. ASSESSMENT: 1. Status post uncontrolled hypertension with hypertensive urgency 2. Acute on chronic renal failure 3. Hyperkalemia 4. History of CHF 5. Anemia occult blood test positive 6. Hepatitis C 7. Cervical spine surgery PLAN: 1. Continue Ferrous sulfate 2. Hydrochlorothiazide on hold 3. DUO NEBS 4. Trandate 200mg Q 8 hours 5. Cozaar 50mg PO daily 6. Zofran 7. Protonix 8. Daily I&O's 9. IV fluids at 42ml per hour. TIME SPENT: More than 35 minutes MTDD
[2017-09-05] MEDS: SODIUM CHLORIDE 1,000 ML IV SCH (14:08)
[2017-09-06] MEDS: NORCO 5-325 PO SCH ×2 (04:33→13:49)
[2017-09-06] MEDS: TRANDATE PO SCH ×2 (04:33→13:49)
[2017-09-06] MEDS: PROTONIX PO SCH (05:41)
[2017-09-06] MEDS: COZAAR PO SCH (08:56)
[2017-09-06] MEDS: FERROUS SULFATE PO SCH (08:57)
[2017-09-06] MEDS: LIPITOR PO SCH (08:57)
[2017-09-06] MEDS ORDERED: CATAPRES PO SCH (09:00)
--- NOTE | 2017-09-06 10:07 | PN ---
DATE OF SERVICE: 09/05/17 SUBJECTIVE: The patient is more awake and alert and says that he is still feeling weak. Thinks he may need some physical therapy. Hgb dropped from the 8.2 to 7.8. The patient was positive occult blood test. Blood pressure been better. REVIEW OF SYSTEMS: CONSTITUTIONAL: No fever, no chills. HEENT: Normal. ENDOCRINE: No weight gain, no weight loss. CVS: No angina symptoms. No CHF symptoms. No palpitations. No atypical chest pain for CAD. No shortness of breath. No PND, no orthopnea. RESPIRATORY: No cough, no hemoptysis. GI: No nausea, no vomiting. No abdominal pain. : No hematuria. No polyuria. MUSCULOSKELETAL: No joint swelling. PSYCHIATRIC: Not anxious. No depression. No suicidal thoughts. No homicidal thoughts. SKIN: Intact. No rash. PHYSICAL EXAMINATION: V/S: Blood pressure 165/92, respiratory rate 20, heart rate 71, temperature 98.5. HEENT: Normocephalic, atraumatic. Mucosa dry. Pallor positive. No icterus. NECK: Supple. No JVD, no carotid bruit. No lymphadenopathy. LUNGS: Decreased and clear to auscultation. No rales or rhonchi. HEART: S1, S2 normal. No S3. No murmur, gallop or regurgitation. ABDOMEN: Soft, nontender. Bowel sounds active. No rigidity. No rebound or guarding. No CVA tenderness. EXTREMITIES: No cyanosis, clubbing or pedal edema. MUSCULOSKELETAL: No joint swelling. NEUROLOGIC: Awake, alert, oriented times three. No focal deficit. LYMPHATIC: No lymph nodes palpable. SKIN: Intact. LABS: WBC 6.10, hgb 7.8, hct 24.4, plt count 131, sodium 140, potassium 5.0, chloride 117, bicarb 19, BUN 43, creatinine 3.15 ASSESSMENT: 1. Status post change in mental status most likely from the multiple medication and cocaine use 2. Positive for cocaine use 3. Hypertensive emergency 4. Acute renal failure 5. Anemia needing blood transfusion 6. Status post hyperkalemia 7. Hepatitic C 8. Cervical spine surgery PLAN: 1. Type and cross match two units and transfuse two units 2. Protonix 40mg twice a day 3. IV fluids 4. Daily I&O's 5. Out of bed to chair activity as tolerated 6. Evaluate the patient for the senior care placement TIME SPENT: More than 35 minutes MTDD
[2017-09-06 10:17] VITALS: BP 146/85; TEMP 97.5
[2017-09-06] MEDS: SODIUM CHLORIDE 1,000 ML IV SCH (13:49)
--- NOTE | 2017-10-11 14:50 | DS ---
DATE OF SERVICE: 09/06/17 FINAL DIAGNOSIS: 1. Ground level fall at home into the left thoracic area and left chest area 2. Acute renal failure 3. Chronic kidney disease 4. Hypotension 5. COPD 6. Hypertension 7. Dyslipidemia 8. CHF by history 9. Anemia 10.Hepatitis C 11.GERD 12.DJD spine 13.Osteoarthritis 14.BPH 15.Anxiety 16.Alcohol use 17.Current everyday smoker 18.Cervical fusion in 1972. 19.Tendon repair 20.Hammer toe 21.Bunionectomy 22.Polypectomy 23.COPD 24.Restrictive lung disease DISCHARGE INSTRUCTIONS: Discharge the patient to the rehab, 2-3 weeks. Accepted at the [facility] [place] [facility], prescreening has been done. CBC and CMP within one week. Keep the legs elevated when resting. MEDICATIONS AT DISCHARGE/NEW MEDICATIONS: Lipitor Metoprolol Prednisone Ferrous Sulfate Hydrocodone Librium Colace Losartan Cozaar Protonix DIET INSTRUCTIONS: Cardiac and healthy diet. No salt diet. ACTIVITY: Can participate in the usp activities DISEASE SPECIFIC EDUCATION: Anemia and need the blood transfusion Not to take any NSAIDS Hypertension and risk of stroke been discussed HOSPITAL COURSE: Augustine Lynch 62 year old male came to the emergency room after falling at home and sustained injury to the left side of the chest. Hgb was 9.2, potassium 3.3, BUN 33, creatinine 2.71. Urine protein positive, Leukocyte esterase positive. The patient admitted to the hospital. Hgb stayed up to 9.4 then gradually started declining 8.5. Potassium went up to 6.2, 6.4 along with BUN and creatinine increased up to 40 and 3.35. Started on IV fluids Kayexalate was given. Urine drug screen was done which showed positive for the cocaine. Occult blood test came positive. Hgb dropped to 4.8 and occult blood test was positive. Two units of blood transfusion was given. The patient was weak, tired and leg edema was present and not able to get up and walk by himself. Gradually BUN and creatinine was getting better. Hgb stayed stable after transfusion to 9.9 and 10 but as the patient was not able to walk and been taken care of by himself the patient was suggested for the usp evaluation and usp care for which the patient agreed. Called [facility] [place] [facility] and been being transferred there for the physical therapy and occupational therapy. While the patient was in the hospital the patient had a CT of the chest which showed mild basilar atelectasis and inflammation bilaterally. Heterogenicity of the thyroid gland was seen. Thyroid ultrasound was done; nodularities right lobe is slightly enlarged. CT of the head is negative for the stroke. Chest x-ray getting better, improving. Consolidation are seen otherwise no acute findings were noted in the radiology findings. TIME SPENT: MORE THAN 65 MINUTES MTDD
== END 2017-09-06 14:45 | DRG 948 ==
LOC: ED 09:45 → MEDSURG B 13:01 → SCU 08-29 10:42
PROVIDERS: ADMIT Emergency Medicine; ATTEND Emergency Medicine
PROC: 30233N1 Transfusion of Nonautologous Red Blood Cells into Peripheral Vein, Percutaneous Approach (ICD-10-PCS; principal; 2017-09-05)
DX: G89.11 Acute pain due to trauma (principal); N17.9 Acute kidney failure, unspecified; F10.980 Alcohol use, unspecified with alcohol-induced anxiety disorder; F05 Delirium due to known physiological condition; S20.212A Contusion of left front wall of thorax, initial encounter; E78.5 Hyperlipidemia, unspecified; B19.20 Unspecified viral hepatitis C without hepatic coma; N18.9 Chronic kidney disease, unspecified; D64.9 Anemia, unspecified; E87.5 Hyperkalemia; F14.10 Cocaine abuse, uncomplicated; F15.980 Other stimulant use, unspecified with stimulant-induced anxiety disorder; I50.9 Heart failure, unspecified; J98.4 Other disorders of lung; I25.10 Atherosclerotic heart disease of native coronary artery without angina pectoris; M43.22 Fusion of spine, cervical region; M47.9 Spondylosis, unspecified; I95.9 Hypotension, unspecified; K21.9 Gastro-esophageal reflux disease without esophagitis; M19.90 Unspecified osteoarthritis, unspecified site; N40.0 Benign prostatic hyperplasia without lower urinary tract symptoms; F41.9 Anxiety disorder, unspecified; I10 Essential (primary) hypertension; J44.9 Chronic obstructive pulmonary disease, unspecified; Z72.0 Tobacco use; M54.5 Low back pain; R19.5 Other fecal abnormalities
CPT/HCPCS: 36415; 36430; 80053; 80306; 81001; 82140; 82272; 82607; 82728; 82746; 83540; 83550; 84439; 84443; 84466; 85014; 85018; 85025; 85045; 86850; 86900; 86922; 87086; 93005; 93010; 94640; 99223; 99232; 99233; 99239; 99284

== ENCOUNTER 2017-09-07 19:44 | Inpatient (IN) ==
--- NOTE | 2017-09-07 19:54 | ED.PDOC ---
General ED Provider: Dr. KAYLA LIZARRAGA-ER Chief Complaint: Alcohol/Substance Withdrawal Stated Complaint: went to a birthday constitution party and had drug screen pos for cocaine and meth--dr mcclure sent to er for screening exam before admission Time Seen by Physician: 19:52 Mode of Arrival: Ambulance Information Source: Patient, Half-Way, EMT Exam Limitations: No limitations Primary Care Provider: MARY KAY VELAZQUEZ-[facility] Nursing and Triage Documentation Reviewed and Agree: Yes Reviewed sepsis parameters & appropriate labs ordered?: Yes System Inflammatory Response Syndrome: Not Applicable Sepsis Protocol: For patient's 13 years and over: Temp is 96.8 and below OR 101 and greater Pulse >90 BPM Resp >20/minute Acutely Altered Mental Status Are patient's symptoms suggestive of a new infection, such as: -Pneumonia -Skin, Soft Tissue -Endocarditis -UTI -Bone, Joint Infection -Implantable Device -Acute Abdominal Infection -Wound Infection -Meningitis -Blood Stream Catheter Infection -Unknown Miscellaneous Complaint Exam - Physical Examination Complaint/Exam Onset/Duration: unknown Symptoms Are: Still present Initial Severity: Mild Current Severity: None Review of Systems - Review Of Systems Constitutional: Reports: No symptoms Eyes: Reports: No symptoms Ears, Nose, Mouth, Throat: Reports: No symptoms Respiratory: Reports: No symptoms Cardiac: Reports: No symptoms GI: Reports: No symptoms : Reports: No symptoms Musculoskeletal: Reports: No symptoms Skin: Reports: No symptoms Neurological: Reports: No symptoms Endocrine: Reports: No symptoms Hematologic/Lymphatic: Reports: No symptoms All Other Systems: Reviewed and Negative Past Medical History - Past Medical History Previously Healthy: Yes Endocrine: Reports: Dyslipidemia Cardiovascular: Reports: Hypertension Respiratory: Reports: COPD Hematological: Reports: None, Anemia Gastrointestinal: Reports: None, GERD, Liver (HEP C) Genitourinary: Reports: None, CKD, Other (ED) Neuro/Psych: Reports: None Musculoskeletal: Reports: Arthritis, Joint Pain (Degen disk dz per recent MRI, according to patient) Cancer: Reports: None - Surgical History General Surgical History: Reports: Orthopedic ( LEFT HIP, BILATERAL FOOT SURGERY ,NECK SURG FUSION 1972, LEFT ARM SURG), Back Surgery (CS FUSION), Other (BOTH FEET; LEFT HIP SURG) - Family History Family History: Reports: Unknown - Social History Smoking Status: Former smoker Hx Substance Use: No Alcohol Screening: None [place]: [place] - Immunizations Influenza Vaccine within 12 Months: No Pneumococcal Vaccine up to Date: No Physical Exam - Physical Exam Appearance: Well-appearing, No pain distress, Well-nourished Eyes: REINA, EOMI, Conjunctiva clear ENT: Ears normal, Nose normal, Oropharynx normal Neck: Supple Respiratory: Airway patent, Breath sounds clear, Breath sounds equal, Respirations nonlabored Cardiovascular: RRR, Pulses normal, No rub, No murmur GI/: Soft, Nontender, No masses, Bowel sounds normal, No Organomegaly Musculoskeletal: Normal strength, ROM intact, No edema, No calf tenderness Skin: Warm Neurological: Sensation intact, Motor intact, Reflexes intact, Cranial nerves intact, Alert, Oriented Psychiatric: Affect appropriate, Mood appropriate Interpretation - EKG Interpretation Time of EKG #1: 19:58 Rate: Normal Rhythm: Sinus Ectopy: None [place]: NL ST Segment: Normal Interpretation: nsr Physician Notification - Case Discussed Physician Notified: discussed with dr mcclure Critical Care Note - Critical Care Note Total Time (mins): 0 Course - Course Hematology/Chemistry: 09/07/17 20:00 09/07/17 20:00 Orders, Labs, Meds: Lab Review 09/07/17 09/07/17 09/07/17 20:00 20:00 20:00 WBC 5.67 RBC 3.46 L Hgb 11.3 L Hct 33.8 L MCV 97.7 H MCH 32.7 H MCHC 33.4 RDW Coeff of Carlita 14.6 Plt Count 169 Immature Gran % (Auto) 0.4 Neut % (Auto) 45.4 Lymph % (Auto) 38.3 [place] % (Auto) 10.6 H Eos % (Auto) 4.9 Baso % (Auto) 0.4 Immature Gran # (Auto) 0.0 Neut # (Auto) 2.6 Lymph # (Auto) 2.2 [place] # (Auto) 0.6 Eos # (Auto) 0.3 Baso # (Auto) 0.0 Sodium 141 Potassium 4.5 Chloride 112 H Carbon Dioxide 17 L Anion Gap 16.5 BUN 36 H Creatinine 2.52 H Estimated GFR (MDRD) 32.00 BUN/Creatinine Ratio 14.28 Glucose 108 Calcium 10.2 Total Bilirubin 0.2 AST 25 ALT 28 Alkaline Phosphatase 63 Total Creatine Kinase 102 Troponin I 0.0200 Total Protein 7.3 Albumin 2.7 L Globulin 4.6 Albumin/Globulin Ratio 0.59 Plasma/Serum Alcohol < 10.0 Orders Category Date Time Status EKG-(ED ONLY) Stat CARDIO 09/07/17 19:45 Completed Crepe S[employer] 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] .ONCE EMERGENCY 09/07/17 19:46 Active IV [ED IV/MEDIPORT/POWERPORT] .ONCE EMERGENCY 09/07/17 19:46 Active CBC W/ AUTO DIFF Stat LAB 09/07/17 20:00 Completed COMPREHENSIVE METABOLIC PANEL Stat LAB 09/07/17 20:00 Completed CREATINE KINASE Stat LAB 09/07/17 20:00 Completed ETOH LEVEL [BLOOD ALCOHOL] Stat LAB 09/07/17 20:00 Completed TROPONIN I Stat LAB 09/07/17 20:00 Completed URINALYSIS C & S IF INDICATED Stat LAB 09/07/17 19:46 Uncollected URINE DRUG SCREEN (RAPID FOR ED) [DRUG SCREEN, URINE, LAB 09/07/17 19:47 Uncollected RAPID] Stat 0.9 % Sodium Chloride [Saline Flush] MEDS 09/07/17 19:46 Ordered 1 syr IVF PRN PRN Medications Generic Name Dose Route Start Last Admin Trade Name Freq PRN Reason Stop Dose Admin Sodium Chloride 1 syr 09/07/17 19:46 Saline Flush IVF PRN PRN To flush IV Vital Signs: Temp Pulse Resp BP Pulse Ox 09/07/17 19:46 97.5 F L 81 20 192/115 H 96 Departure - Departure Time of Disposition: 20:45 Disposition: PLACED OBSERVATION Discharge Problem: Substance abuse Instructions: Polysubstance Abuse (ED) Condition: Stable Pt referred to PMD for follow-up: Yes IPMP verified?: No Allergies/Adverse Reactions: Allergies lisinopril Allergy (Severe, Verified 08/27/17 09:52) Face swelling Patient to notify drugstore enalaprilat [From Vasotec] Adverse Reaction (Mild, Verified 08/27/17 09:52) Itching Patient experienced facial flushing and itching. Home Medications: Ambulatory Orders Ferrous Sulfate 325 mg PO BID 10/08/14 Pantoprazole Sodium [Protonix] 40 mg PO BID #60 tablet. 12/29/16 Clonidine HCl 0.2 mg PO TID #1 tablet 09/06/17 Docusate Sodium [Colace] 100 mg PO DAILY #1 capsule 09/06/17 Hydrocodone Bit/Acetaminophen [[place]itt 5-325] 1 each PO Q8HR #30 tablet 09/06/17 Labetalol HCl 200 mg PO Q8H #1 tablet 09/06/17 Losartan Potassium [Cozaar] 50 mg PO DAILY #1 tablet 09/06/17 Disposition Discussed With: Patient
[2017-09-07] MEDS ORDERED: NON-FORMULARY MEDICATION (Ferrous Sulfate [Ferrous Sulfate] 325 MG) PO SCH (21:00)
[2017-09-07] MEDS ORDERED: NORCO 5-325 PO SCH (21:00)
[2017-09-07] MEDS ORDERED: NON-FORMULARY MEDICATION (Clonidine Hcl [Clonidine Hcl] 0.2 MG) PO SCH (21:00)
[2017-09-07] MEDS: SODIUM CHLORIDE 1,000 ML IV SCH ×2 (21:45→22:00)
[2017-09-07 22:31] VITALS: BMI 21.4
[2017-09-07] MEDS ORDERED: LOVENOX SUBCUT SCH (23:45)
[2017-09-07] MEDS ORDERED: PROTONIX PO SCH (23:45)
[2017-09-08] MEDS: LABETALOL HCL 200 MG PO SCH ×4 (00:24→20:34)
[2017-09-08] MEDS ORDERED: NORCO 5-325 PO STA (00:26)
[2017-09-08] MEDS: NON-FORMULARY MEDICATION (Clonidine Hcl [Clonidine Hcl] 0.2 MG) PO SCH ×3 (08:46→20:32)
[2017-09-08] MEDS: NORCO 5-325 PO SCH ×3 (08:48→20:33)
[2017-09-08] MEDS: PROTONIX PO SCH ×2 (08:49→16:49)
[2017-09-08] MEDS ORDERED: NON-FORMULARY MEDICATION (Losartan Potassium 50 MG) PO SCH (09:00)
[2017-09-08] MEDS: COLACE PO SCH (09:25)
[2017-09-08] MEDS: FERROUS SULFATE PO SCH ×2 (09:25→20:31)
[2017-09-08] MEDS: SODIUM CHLORIDE 1,000 ML IV SCH (16:45)
[2017-09-08] MEDS ORDERED: KAYEXALATE SUSP PO STA (19:11)
[2017-09-08] MEDS: APRESOLINE PO SCH (20:31)
[2017-09-08] MEDS ORDERED: LOVENOX SUBCUT SCH (21:00)
[2017-09-08] MEDS ORDERED: LIPITOR PO SCH (21:00)
[2017-09-08] MEDS ORDERED: TRANDATE IVP STA (22:25)
[2017-09-09] MEDS: APRESOLINE PO SCH ×3 (02:54→20:18)
[2017-09-09] MEDS: LABETALOL HCL 200 MG PO SCH (05:13)
[2017-09-09] MEDS: TRANDATE IVP PRN ×2 (05:24→21:43)
[2017-09-09] MEDS: PROTONIX PO SCH ×2 (05:37→16:33)
[2017-09-09] MEDS ORDERED: TRANDATE IVP PRN (07:30)
[2017-09-09] MEDS: NORCO 5-325 PO SCH ×3 (09:21→20:23)
[2017-09-09] MEDS: COLACE PO SCH (09:21)
[2017-09-09] MEDS: FERROUS SULFATE PO SCH ×2 (09:21→20:19)
[2017-09-09] MEDS: COZAAR PO SCH (09:22)
[2017-09-09] MEDS: CATAPRES PO SCH ×3 (09:23→20:19)
[2017-09-09] MEDS: TRANDATE PO SCH ×2 (13:44→20:23)
[2017-09-09] MEDS: LIPITOR PO SCH (20:18)
[2017-09-09] MEDS ORDERED: TRANDATE ONE (21:40)
[2017-09-10] MEDS ORDERED: TRANDATE IVP STA ×2 (02:10→03:33)
[2017-09-10] MEDS: PROTONIX PO SCH ×2 (05:55→17:02)
[2017-09-10] MEDS: APRESOLINE PO SCH ×3 (05:55→20:26)
[2017-09-10] MEDS: TRANDATE PO SCH ×3 (05:56→20:25)
[2017-09-10] MEDS: CATAPRES PO SCH ×3 (09:12→20:25)
[2017-09-10] MEDS: COLACE PO SCH (09:12)
[2017-09-10] MEDS: NORCO 5-325 PO SCH ×3 (09:12→20:26)
[2017-09-10] MEDS: COZAAR PO SCH (09:12)
[2017-09-10] MEDS: FERROUS SULFATE PO SCH ×2 (09:12→20:26)
[2017-09-10] MEDS: LIPITOR PO SCH (20:25)
[2017-09-11] MEDS: TRANDATE PO SCH ×3 (05:41→20:13)
[2017-09-11] MEDS: APRESOLINE PO SCH ×3 (05:41→20:38)
[2017-09-11] MEDS: PROTONIX PO SCH ×2 (05:41→17:32)
[2017-09-11] MEDS ORDERED: NORVASC PO SCH ×2 (09:00→16:05)
[2017-09-11] MEDS: COLACE PO SCH (09:48)
[2017-09-11] MEDS: CATAPRES PO SCH ×2 (09:48→17:04)
[2017-09-11] MEDS: FERROUS SULFATE PO SCH ×2 (09:48→20:39)
[2017-09-11] MEDS: COZAAR PO SCH (09:48)
[2017-09-11] MEDS: NORCO 5-325 PO SCH ×3 (09:48→20:39)
[2017-09-11] MEDS: LIBRIUM PO SCH ×2 (09:54→20:38)
--- NOTE | 2017-09-11 11:08 | HP ---
DATE OF SERVICE: 09/07/17 CHIEF COMPLAINT: Questionable substance use and change in mental status HISTORY OF PRESENT ILLNESS: This is a 62 year old male who was recently discharged from the hospital to the care home for the physical therapy and rehabilitation. The patient went to the friend's house for the republican and ever since he came back to the care home he was not acting right and more lethargic. So as the patient was found lethargic a urine drug screen was done as per the care home; alcohol, opioids and benzo was positive, Cocaine was positive so the patient was sent back to the emergency room. The patient was seen by Dr. Smith in the emergency room. Drug screen did not show positive cocaine. Blood pressure was 192/115. At the time the patient was admitted for uncontrolled hypertension and status post change in mental status. REVIEW OF SYSTEMS: CONSTITUTIONAL: No fever, no chills. Weakness and tiredness. Questionable substance use HEENT: Normal. ENDOCRINE: No weight gain; no weight loss. CVS: No chest pain. No PND, no orthopnea. No shortness of breath. No PND, no orthopnea. RESPIRATORY: No cough, no congestion. No hemoptysis. GI: No nausea, no vomiting. No abdominal pain. No melena. : No hematuria. No polyuria. MUSCULOSKELETAL: No joint swelling. PSYCHIATRIC: Not anxious. No depression. No suicidal thoughts. No homicidal thoughts. SKIN: Intact, no open lesions. PAST MEDICAL HISTORY: Hepatitis C History of GI bleed Recent acute kidney injury which is better Status post falls CAD CHF Dyslipidemia Osteoarthritis Cervical spine surgery PAST SURGICAL HISTORY: Cervical spine surgery Tendon repair Hammer toe repair Bunionectomy PERSONAL HISTORY: The does smoke occasionally, drinks alcohol occasionally and has substance use history; cocaine. FAMILY HISTORY: Pacemaker Diabetes MEDICATIONS: Ferrous sulfate Pantoprazole Atorvastatin Clonidine Docusate Labetalol Losartan Hydrocodone ALLERGIES: Lisinopril Enalaprilat PHYSICAL EXAMINATION: V/S: Blood pressure 176/104, respiratory rate 20, heart rate 83, temperature 97.3 with saturation 95%. HEENT: Atraumatic, normocephalic. No scleral icterus. Pallor positive. Mucosa dry. NECK: Supple. No JVD, no bruit. No lymphadenopathy. No thyromegaly. HEART: S1, S2 normal. No murmur. No cyanosis or clubbing. No ascites. LUNGS: Clear to auscultation. No rales or rhonchi. ABDOMEN: Soft, nontender. Bowel sounds are active. No CVA tenderness. No rigidity or guarding. EXTREMITIES: No pedal edema. No cyanosis or clubbing. Strength is normal of all four extremities. MUSCULOSKELETAL: Normal joints, no swelling. NEUROLOGIC: The patient is awake, alert and speaks. Talking is normal. No slurry speech. The patient is upset about what is going on right now. SKIN: Intact; no open lesions. LYMPHATIC: No lymph nodes palpable. LABS: WBC 5.65, hgb 11.3, hct 33.8, plt count 169, sodium 141, potassium 4.5, chloride 112, bicarb 17, BUN 36, creatinine 2.52. ASSESSMENT: 1. Hypertension, uncontrolled 2. Questionable substance use 3. Status post change in mental status 4. Acute on chronic renal failure 5. Hepatitis C 6. Anemia with past GI bleed 7. Recent fall with chest contusion PLAN: 1. Admit patient to the regular floor 2. IV fluids 3. Continue care home medications 4. Daily I&O's TIME SPENT: MORE THAN 75 minutes MTDD
--- NOTE | 2017-09-11 11:54 | PN ---
DATE OF SERVICE: 09/08/17 SUBJECTIVE: The patient is tearful and sad as for the patient he thinks that the [facility] did not give a good report on the patient. He promises that he did not take any such drugs. He says that he wants to get better and he doesn't want to do anything bad that can affect his health. Reassured the patient. Blood pressure is still elevated and says that he was not able to sleep all night because of this issue. REVIEW OF SYSTEMS: CONSTITUTIONAL: No fever, no chills. HEENT: Normal. ENDOCRINE: No weight gain, no weight loss. CVS: No angina symptoms. No CHF symptoms. No palpitations. No atypical chest pain for CAD. No shortness of breath. No PND, no orthopnea. RESPIRATORY: No cough, no hemoptysis. GI: No nausea, no vomiting. No abdominal pain. : No hematuria. No polyuria. MUSCULOSKELETAL: No joint swelling. PSYCHIATRIC: Not anxious. No depression. No suicidal thoughts. No homicidal thoughts. SKIN: Intact. No rash. PHYSICAL EXAMINATION: V/S: Blood pressure 168/98, respiratory rate 15, heart rate 97, temperature 97.0 with saturation 97%. HEENT: Normocephalic, atraumatic. Mucosa dry. Pallor positive. No icterus. NECK: Supple. No JVD, no carotid bruit. No lymphadenopathy. LUNGS: Clear to auscultation. No rales or rhonchi. HEART: S1, S2 normal. No S3. No murmur, gallop or regurgitation. ABDOMEN: Soft, nontender. Bowel sounds active. No rigidity. No rebound or guarding. No CVA tenderness. EXTREMITIES: No cyanosis, clubbing. 1+ edema. Left upper extremity is swelling is present. IV site is not tender. MUSCULOSKELETAL: No joint swelling. NEUROLOGIC: Awake, alert, oriented times three. No focal deficit. LYMPHATIC: No lymph nodes palpable. SKIN: Intact. LABS: Sodium 141, potassium 5.3, chloride 115, bicarb 17, BUN 39, creatinine 2.44, WBC 6.63, hgb 10.4, hct 31.6, plt count 156. ASSESSMENT: 1. Hyperkalemia 2. Acute on chronic renal failure 3. Anxiety 4. History of lower GI bleed 5. Hepatitis C 6. Substance use disorder 7. Hypertension uncontrolled PLAN: 1. Kayexalate 30mg one time 2. Continue the Atorvastatin and Docusate 3. Stop the Lovenox 4. Ferrous sulfate 5. Hydrocodone 6. Labetalol 7. Losartan 8. Protonix TIME SPENT: More than 35 minutes MTDD
[2017-09-11] MEDS: DUONEB NEB SCH ×2 (14:42→20:48)
[2017-09-11] MEDS ORDERED: CATAPRES PO SCH (16:05)
[2017-09-11] MEDS ORDERED: COZAAR PO SCH (16:05)
[2017-09-11] MEDS ORDERED: APRESOLINE PO SCH (16:05)
--- NOTE | 2017-09-11 16:41 | RS.OTINEVL ---
Subjective - Patient information Date of Evaluation: 09/11/17 Date of Arrival on Unit: 09/07/17 Admitted From:: Emergency Dept Usual Living Arrangement: With Others Living Arrangement Comments: Pt was at the senior living at this time for rehab. Prior to the senior living he was living at home with his daughter. Home Environment: House Medical History: Hypertension Medical History Comments:: Hep C, Edema of bilateral feet, GERD, Abd. pain, tendon repair in arm, cervical fusion , pacemaker LATEX ALLERGY?: No Pain Assessment - Pain Pain Aggravating Factors: ADL's, Changing Position, Walking Pain Alleviating Factors: Medication, Sitting, Lying Supine Interventions - Objective Patient Orientation: Person, Place, Time, Situation Current Interventions: IV's Observation: Pt is weak and has Bilateral upper extremity tremors. Pt requires moderate assistance of 2 to pick patient up into standing with RW. Pt is very polite. Interventions - ROM Right Upper Extremity AROM: Slight limitation Left Upper Extremity AROM: Slight limitation - Strength Right Upper Extremity Strength: Mild Weakness Left Upper Extremity Strength: Mild Weakness - Sensation Right Upper Extremity Sensation: Intact/Normal Left Upper Extremity Sensation: Impaired Balance - Sitting Balance Static Sitting Balance: Fair Dynamic Sitting Balance: Fair - Standing Balance Static Standing Balance: Poor Dynamic Standing Balance: Poor ADL Skills - Self Feeding Self Feeding: Supervision - Grooming Grooming: Min Assist - Bathing Bathing UE: Min Assist Bathing LE: Max Assist - Dressing Dressing UE: Min Assist Dressing LE: Max Assist, 2 person assist - Toilet Management Toileting Management: Max Assist, 2 person assist Functional Mobility - Bed Mobility Rolling R/L: Min Assist Scooting: Mod Assist Supine to Sit: Max Assist, 2 person assist Sit to Supine: Max Assist, 2 person assist - Transfers Sit to Stand: Mod Assist, 2 person assist Stand to Sit: Mod Assist, 2 person assist Stand Pivot Transfers: 2 person assist - Ambulation Weight Bearing Status: FWB Assistive Device Used: Rolling Walker Assistance needed with Ambulation: Max Assist, 2 person assist - Safety Awareness Safety Awareness: Fair PINKY INDEX SCORE: . Additional Treatment Performed - Time with patient Total treatment time: 28 Activities Do you enjoy playing games?: No Do you have difficulty with your vision?: No Patient Interests:: Watching Television Patient Education Patient Education: Education of diagnosis, Education of Plan of Care Teaching Recipient: Patient Teaching Methods: Discussion Assessment Problem List:: Decreased level of function, Requires training/education, Decreased safety/Risk of falls, Weakness, Pain limits previous level of function Rehab Potential: Good Further Therapy Indicated?: Yes Evaluation Complexity: HISTORY: Medium, EXAM OF BODY SYSTEMS: Medium, CLINICAL DECISION MAKING: Medium Short Term Goals - Goals GOAL 1: Pt to complete stand pivot transfers to minimal assistance. Goal to be met by: 09/17/17 GOAL 2: Pt to complete BUE therex to increase strength to 4/5. Goal to be met by: 09/17/17 GOAL 3: Pt to increase sit to stand to Minimal assistance. Goal to be met by: 09/17/17 Senior Living Goals GOAL 1: Pt to complete stand pivot transfers to CGA. Goal to be met by: 09/21/17 GOAL 2: Pt to complete BUE therex to increase strength to 4/5 Goal to be met by: 09/21/17 GOAL 3: Pt to increase sit to stand to CGA. Goal to be met by: 09/21/17 Plan Plan of Care: Therapeutic EX, Neuromuscular Re-Educ, Therapeutic Activity, Self- Care/Home Management Frequency of Treatment: 1-2 X day, as tolerated Duration of Treatment: 1 Week Treatment Diagnosis (ICD 10 Codes): M62.81 muscle weakness, M74.0 reduced mobilit, M74.1 Need for assistance for personal care. Has the Physician been added for Co-signature?: Yes
[2017-09-11] MEDS: LIPITOR PO SCH (20:38)
[2017-09-12] MEDS: DUONEB NEB SCH ×3 (05:00→20:40)
[2017-09-12] MEDS: TRANDATE PO SCH (05:00)
[2017-09-12] MEDS: APRESOLINE PO SCH ×3 (06:03→21:20)
[2017-09-12] MEDS: PROTONIX PO SCH ×2 (06:03→16:19)
[2017-09-12] MEDS: NORVASC PO SCH ×2 (08:42→08:46)
[2017-09-12] MEDS: NORCO 5-325 PO SCH ×3 (08:42→21:20)
[2017-09-12] MEDS: FERROUS SULFATE PO SCH ×2 (08:42→21:20)
[2017-09-12] MEDS: LIBRIUM PO SCH ×2 (08:42→21:20)
[2017-09-12] MEDS: COLACE PO SCH (08:43)
--- NOTE | 2017-09-12 09:24 | PN ---
DATE OF SERVICE: 09/11/17 SUBJECTIVE: Admitted with uncontrolled hypertension. Blood pressure varies high. Not in any distress as he was able to rest well. REVIEW OF SYSTEMS: CONSTITUTIONAL: No fever, no chills. HEENT: Normal. ENDOCRINE: No weight gain, no weight loss. CVS: No angina symptoms. No CHF symptoms. No palpitations. No atypical chest pain for CAD. No shortness of breath. No PND, no orthopnea. RESPIRATORY: No cough, no hemoptysis. GI: No nausea, no vomiting. No abdominal pain. : No hematuria. No polyuria. MUSCULOSKELETAL: No joint swelling. PSYCHIATRIC: Not anxious. No depression. No suicidal thoughts. No homicidal thoughts. SKIN: Intact. No rash. PHYSICAL EXAMINATION: V/S: BP 176/100, respiratory rate 20, heart rate 77, saturation 98. HEENT: Normocephalic, atraumatic. Mucosa dry. Pallor positive. No icterus. NECK: Supple. No JVD, no carotid bruit. No lymphadenopathy. LUNGS: Decreased entry. Clear to auscultation. No rales or rhonchi. HEART: S1, S2 normal. No S3. No murmur, gallop or regurgitation. ABDOMEN: Soft, nontender. Bowel sounds active. No rigidity. No rebound or guarding. No CVA tenderness. EXTREMITIES: No cyanosis, clubbing or pedal edema. MUSCULOSKELETAL: No joint swelling. NEUROLOGIC: Awake, alert, oriented times three. No focal deficit. LYMPHATIC: No lymph nodes palpable. SKIN: Intact. LABS: White count 7.03, hemoglobin 10.7, hematocrit 32.1, platelet count 150. Sodium 141, potassium 4.8, chloride 114, bicarb 18, BUN 33, creatinine 2.41, glucose 101. ASSESSMENT: 1. UNCONTROLLED HYPERTENSION/URGENCY 2. STATUS POST CHANGE IN MENTAL STATUS SECONDARY TO HYPERTENSION/URGENCY AND QUESTIONABLE SUBSTANCE USE BUT URINE DRUG SCREEN IS NEGATIVE 3. RECENT HISTORY OF COCAINE USE 4. CHF 5. HEPATITIS C POSITIVE 6. ANEMIA 7. CHRONIC KIDNEY DISEASE PLAN: 1. Will start patient on Norvasc 10 mg p.o. daily 2. Librium 10 b.i.d. along with current medications 3. Out of bed to chair 4. Activity as tolerated TIME SPENT: More than 35 minutes MTDD
--- NOTE | 2017-09-12 09:45 | PN ---
DATE OF SERVICE: 09/09/17 SUBJECTIVE: The patient was admitted with change in mental status and hypertensive urgency. Blood pressure is high. The patient has been on the Hydralazine 50mg Q 8 hours. REVIEW OF SYSTEMS: CONSTITUTIONAL: No fever, no chills. HEENT: Normal. ENDOCRINE: No weight gain, no weight loss. CVS: No angina symptoms. No CHF symptoms. No palpitations. No atypical chest pain for CAD. No shortness of breath. No PND, no orthopnea. RESPIRATORY: No cough, no hemoptysis. GI: No nausea, no vomiting. No abdominal pain. : No hematuria. No polyuria. MUSCULOSKELETAL: No joint swelling. PSYCHIATRIC: Not anxious. No depression. No suicidal thoughts. No homicidal thoughts. SKIN: Intact. No rash. PHYSICAL EXAMINATION: V/S: Blood pressure 193/104, respiratory rate 16, heart rate 68, temperature 97.6 with saturation 98. HEENT: Normocephalic, atraumatic. Mucosa dry. NECK: Supple. No JVD, no carotid bruit. No lymphadenopathy. LUNGS: Clear to auscultation. No rales or rhonchi. HEART: S1, S2 normal. No S3. No murmur, gallop or regurgitation. ABDOMEN: Soft, nontender. Bowel sounds active. No rigidity. No rebound or guarding. No CVA tenderness. EXTREMITIES: No cyanosis, clubbing or pedal edema. Left upper extremity swelling is present. Left upper extremity IV line is present so we will tell the nurses to change the IV line. MUSCULOSKELETAL: No joint swelling. NEUROLOGIC: Awake, alert, oriented times three. No focal deficit. LYMPHATIC: No lymph nodes palpable. SKIN: Intact. LABS: WBC 7.03, hgb 10.7, hct 32.1, plt count 150, sodium 141, potassium 4.8, chloride 114, bicarb 18, BUN 33, creatinine 2.41, glucose 111 ASSESSMENT: 1. Hypertension uncontrolled 2. Status post change in mental status 3. History of substance use, recent substance use was cocaine 4. Hepatitis C 5. Anemia 6. Acute on chronic renal failure PLAN: 1. Hydralazine 50mg Q 8 hours 2. Labetalol 10mg IV push Q 6 hours PRN for systolic blood pressure more than 180 3. Change IV site 4. Daily I&O's TIME SPENT: More than 35 minutes MTDD
--- NOTE | 2017-09-12 10:20 | PN ---
DATE OF SERVICE: 09/10/17 SUBJECTIVE: The patient IV site been changed so wrist swelling has resolved. The patient was able to sleep good. Blood pressure is constantly high so we will change the medications. REVIEW OF SYSTEMS: CONSTITUTIONAL: No fever, no chills. HEENT: Normal. ENDOCRINE: No weight gain, no weight loss. CVS: No angina symptoms. No CHF symptoms. No palpitations. No atypical chest pain for CAD. No shortness of breath. No PND, no orthopnea. RESPIRATORY: No cough, no hemoptysis. GI: No nausea, no vomiting. No abdominal pain. : No hematuria. No polyuria. MUSCULOSKELETAL: No joint swelling. PSYCHIATRIC: Not anxious. No depression. No suicidal thoughts. No homicidal thoughts. SKIN: Intact. No rash. PHYSICAL EXAMINATION: V/S: Blood pressure 185/99, respiratory rate 20, heart rate 72, temperature 98.2 with saturation 96%. HEENT: Normocephalic, atraumatic. Mucosa dry. Pallor positive. No icterus. NECK: Supple. No JVD, no carotid bruit. No lymphadenopathy. LUNGS: Clear to auscultation. No rales or rhonchi. HEART: S1, S2 normal. No S3. No murmur, gallop or regurgitation. ABDOMEN: Soft, nontender. Bowel sounds active. No rigidity. No rebound or guarding. No CVA tenderness. EXTREMITIES: No cyanosis, clubbing or pedal edema. MUSCULOSKELETAL: No joint swelling. NEUROLOGIC: Awake, alert, oriented times three. No focal deficit. LYMPHATIC: No lymph nodes palpable. SKIN: Intact. LABS: Sodium 141, potassium 4.8, chloride 114, bicarb 18, BUN 33, creatinine 2.7, glucose 111. WBC 7.03, hgb 10.7, hct 32.1, plt count 150. ASSESSMENT: 1. Hypertensive urgency 2. Acute on chronic renal failure 3. Change in mental status 4. Substance use 5. History of Hepatitis C 6. CHF PLAN: 1. Increase the Hydralazine to 100mg Q 8 hours 2. Continue Labetalol PRN 3. Stop the IV fluids 4. Daily I&O's TIME SPENT: More than 35 minutes MTDD
--- NOTE | 2017-09-12 10:55 | RS.PTINEVL ---
Subjective - Patient information Date of Evaluation: 09/12/17 Date of Arrival on Unit: 09/07/17 Admitted From:: Emergency Dept Diagnosis: substance abuse, HTN Usual Living Arrangement: With Others Living Arrangement Comments: Pt was at the alf at this time for rehab. Prior to the alf he was living at home, daughter assisted but did not live with him. Home Environment: House Medical History: Hypertension, COPD Medical History Comments:: Hep C,GERD, chronic kidney disease, anemia, DDD LATEX ALLERGY?: No Surgical History: Cervical Spine, Lumbar Spine Surgical History Comments:: L hip sx, foot sx Medications: see chart Subjective Information/ Patient Comments:: pt states he doesn't feel he is ready to go home yet. pt feels he needs to go somewhere for rehab, however does not want to return to [facility] pt states he is too weak to take care of himself at this time. 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, Participated in Social Activities Outside home Abilities prior to this admission: pt had some assist with ADL's per daughter Current Level of Function: Dependent Current Equipment Used at Home: power w/c, rwx, Pain Assessement - Location low back Description: Aching Pain Behavior: Facial Grimacing Pain Aggravating Factors: Changing Position, Standing Pain Alleviating Factors: Medication Interventions - Objective Patient Orientation: Person, Place, Time, Situation Current Interventions: IV's, Telemetry Range of Motion - ROM Right Upper Extremity AROM: WFL's Left Upper Extremity AROM: WFL's Right Lower Extremity AROM: WFL's Left Lower Extremity AROM: WFL's Muscle Strength - Muscle Strength Right Upper Extremity Strength: Mild Weakness (grossly 4/5) Left Upper Extremity Strength: Mild Weakness (grossly 4-/5) Right Lower Extremity Strength: Severe Weakness (hip flex 3+/5, knee flex 4-/5, knee ext 3/5, ankle DF/PF 3+/5) Left Lower Extremity Strength: Severe Weakness (hip flex 3/5, knee flex 3+/5, knee ext 3/5, ankle Df/PF 3+/5) Sensation - Sensation Right Upper Extremity Sensation: Intact/Normal Left Upper Extremity Sensation: Intact/Normal Right Lower Extremity Sensation: Intact/Normal Left Lower Extremity Sensation: Impaired (n/t LLE) Palpation Palpation Findings: Muscle Guarding (lumbar area) Balance - Sitting Balance and Reactions Static Sitting Balance: Good Dynamic Sitting Balance: Fair Sitting Equilibrium Reactions: Delayed Left, Delayed Right Sitting Protective Reactions: Delayed Left, Delayed Right - Standing Balance and Reactions Static Standing Balance: Poor Dynamic Standing Balance: Poor Standing Equilibrium Reactions: Delayed Left, Delayed Right Standing Protective Reactions: Delayed Left, Delayed Right - Comments Balance Assessment Comments: pt able to maintain sitting balance without challenges to balance. Standing static balance able to maintain combined rail operator parallel bars with CGA. Functional Mobility - Transfers Sit to Stand: Mod Assist, 2 person assist Stand to Sit: Min Assist, Mod Assist, 2 person assist Comments:: pt stood in parallel bars with mod x 2, once standing pt required min to CGA to maintain standing x 1min. pt stood x 2. - Safety Awareness Safety Awareness: Fair PINKY INDEX SCORE: n/a Treatment time - Time with patient Total treatment time: 34 Patient Education - Education Patient Education: Activity Modification, Education of Plan of Care Teaching Recipient: Patient Teaching Methods: Discussion Comments: discussion with patient regarding POC as well as safety with transfers. Assessment - Assessment Problem List:: Decreased level of function, Requires training/education, Decreased safety/Risk of falls, Weakness, Pain limits previous level of function Rehab Potential: Good Further Therapy Indicated?: Yes Evaluation Complexity: HISTORY: Medium (htn, copd, hep c, ckd, ddd), EXAM OF BODY SYSTEMS: Medium (strength, balance, posture, transfers, gait), CLINICAL PRESENTATION: Medium (evolving), CLINICAL DECISION MAKING: Medium Short Term Goals GOAL #1: pt perform rolling and bridging with CGA Goal to be met by: 09/15/17 GOAL #2: Transfer sup to/from sit min x 1, sit to/from stand min x 2 Goal to be met by: 09/15/17 GOAL #3: pt stand pivot transfer bed to/from chair with min x 2 Goal to be met by: 09/15/17 GOAL #4: pt amb 5-10ft in parallel bars with min x 2 Goal to be met by: 09/15/17 Fraud Investigator Goals GOAL #1: pt independent with all bed mobility Goal to be met by: 09/19/17 GOAL #2: Transfer sup to/from sit SBA, sit to/from stand min to CGA Goal to be met by: 09/19/17 GOAL #3: pt amb with rwx 10-15 ft with min to CGA x 1 Goal to be met by: 09/19/17 Plan Plan of Care: Therapeutic EX, Therapeutic Activity Other:: gait training Frequency of Treatment: 1-2 X day, as tolerated Duration of Treatment: 6 days Anticipated Discharge Destination: home vs LTC Treatment Diagnosis (ICD 10 Codes): R26.81 balance impaired. M 62.81 general weakness Has the Physician been added for Co-signature?: Yes
[2017-09-12] MEDS: LIPITOR PO SCH (21:20)
[2017-09-13] MEDS: DUONEB NEB SCH ×2 (05:46→14:16)
[2017-09-13] MEDS: APRESOLINE PO SCH ×2 (06:13→12:58)
[2017-09-13] MEDS: PROTONIX PO SCH (06:13)
[2017-09-13] MEDS: NORVASC PO SCH (08:44)
[2017-09-13] MEDS: LIBRIUM PO SCH (08:44)
[2017-09-13] MEDS: COLACE PO SCH (08:44)
[2017-09-13] MEDS: NORCO 5-325 PO SCH ×2 (08:44→12:57)
[2017-09-13] MEDS: FERROUS SULFATE PO SCH (08:44)
[2017-09-13 10:18] VITALS: TEMP 98.6
[2017-09-13 14:36] VITALS: BP 126/69
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
== END 2017-09-13 16:00 | disposition home or self-care (01) | DRG 897 ==
LOC: ED 19:44 → MEDSURG A 20:51 → OBSVTOIN 09-08 14:05
PROVIDERS: ADMIT Emergency Medicine; ATTEND Emergency Medicine
DX: F19.10 Other psychoactive substance abuse, uncomplicated (principal); R41.82 Altered mental status, unspecified; I16.0 Hypertensive urgency; I13.0 Hypertensive heart and chronic kidney disease with heart failure and stage 1 through stage 4 chronic kidney disease, or unspecified chronic kidney disease; N17.9 Acute kidney failure, unspecified; K92.1 Melena; E78.5 Hyperlipidemia, unspecified; I10 Essential (primary) hypertension; J44.9 Chronic obstructive pulmonary disease, unspecified; D64.9 Anemia, unspecified; K21.9 Gastro-esophageal reflux disease without esophagitis; B19.20 Unspecified viral hepatitis C without hepatic coma; I12.9 Hypertensive chronic kidney disease with stage 1 through stage 4 chronic kidney disease, or unspecified chronic kidney disease; N18.9 Chronic kidney disease, unspecified; M19.90 Unspecified osteoarthritis, unspecified site; Z98.890 Other specified postprocedural states
CPT/HCPCS: 36415; 80053; 80306; 80307; 81001; 82550; 84484; 85025; 87081; 93005; 93010; 94640; 99223; 99233; 99239; 99284

== ENCOUNTER 2017-09-16 08:59 | Outpatient (CLI) | END 2017-09-16 09:17 | disposition short-term general hospital (02) | LOC: AMBL 08:59 | PROVIDERS: ATTEND Emergency Medicine | DX: M79.89 Other specified soft tissue disorders (principal); I10 Essential (primary) hypertension ==

== ENCOUNTER 2017-09-20 12:18 | Outpatient (CLI) | payer OTHER | END 2017-09-20 12:19 | disposition home or self-care (01) | LOC: RHC-LAB 12:18 | PROVIDERS: ATTEND Emergency Medicine | DX: N18.2 Chronic kidney disease, stage 2 (mild) (principal); D50.8 Other iron deficiency anemias; I10 Essential (primary) hypertension | CPT/HCPCS: 36415; 80053; 85025 ==

== ENCOUNTER 2017-10-11 10:00 | Outpatient (RCR) ==
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
--- NOTE | 2017-09-27 08:51 | RS.OTCXNS ---
OT Case Note Date of Scheduled Appointment: 09/27/17 Type: Cancel (Phoned therapy with c/o swelling/not feeling well)
--- NOTE | 2017-09-27 11:03 | RS.CXNS ---
Date of scheduled appointment: 09/27/17 Type: Cancel Reason for Cancel/NS: Cancelled OT appt due to not feeling well,was to also have PT afterward.
--- NOTE | 2017-10-03 10:58 | RS.OPPTDN ---
Subjective Date of Note: 10/03/17 Visit #: 2 Date of Evaluation: 09/24/17 Payer Source: MEDICARE Treatment Diagnosis: severe LE weakness and impaired balance. Current Subjective/complaints:: Patient feels his LE's are weaker ,and the muscle spasms seem to be more frequent. *Precautions: pt is high fall risk. Pain Assessment - Pain Description Pain Location: LE's/back Pain Description: Tightness Current Pain Intensity: 0 at rest,5/10 when spasms occur Interventions - Exercise/Activities/Manual Therapy Exercises/Activities: 40 mins. total ,transfers from power chair to therapy mat with supervision,then did passive stretches to both LE's,deep pressure / inhibition techniques due to hypertonus present.Stretches include hamstrings, lumbar paraspinals,heelcords,hip adducotrs. Total minutes of Exercise: 40 Manual Therapy: n/a HOME EXERCISE PROGRAM: pt received HEP including lower trunk rotation stretch, knee to chest, hip add isometric, LAQ - Charges Timed Code Treatment Minutes: 40 Total Treatment Time: 45 Procedures billed for this date of service:: ex 3 Assessment: Patient requires prolonged static stretches to all muscle groups, has frequent spasms today,requiring frequent rest periods.He is attentive to recommendations of the therapy staff. Patient Education: Activity Modification, Education of Plan of Care Short Term Goals Goal #1: pt independent with initial HEP Goal to be met by: 10/08/17 Progress towards Goal:: Progressing Goal #2: Improve BLE strength 4- to 4/5 Goal to be met by: 10/08/17 Goal #3: pt demonstrate good dyn sitting balance w no LOB w reaching/ min challenge Goal to be met by: 10/08/17 Goal #4: pt transfer sup to/from sit independently, sit to/from stand min x 1 Goal to be met by: 10/08/17 Progress towards Goal:: Progressing [facility] Goals Goal #1: pt transfer sit to/from stand SBA Goal to be met by: 10/22/17 Goal #2: pt able to tolerate standing x 5 mins with SBA Goal to be met by: 10/22/17 Goal #3: pt transfer bed to/from w/c independently Goal to be met by: 10/22/17 Goal #4: pt able to amb 20ft with wx with min x 1 to improve mobility in home Goal to be met by: 10/22/17 Plan PLAN OF CARE EXPIRES ON:: 10/22/17 ORDER # VISITS AND/OR THROUGH DATE: 10/22/17 PLAN: Continue PT to decrease muscle tone ,resulting in safer transfers.
--- NOTE | 2017-10-03 12:04 | RS.OTDNOTE ---
Subjective Date of Note: 10/03/17 Visit #: 2 Date of Evaluation: 09/24/17 Payer Source: MEDICARE Treatment Diagnosis: muscle weakness, impaired coordination *Precautions: pt is high fall risk. Current Complaints/Gains: Pt states he tries to stand on his legs in the kithcen and use his UE strength as much as possible but states c/o wkness and trouble with holding and opening/closing 2* hand strength that is effecting his handwriting. Pain Assessment - Pain Description Pain Description: Burning, Tightness, Sharp, Aching Pain Location: back, legs Interventions - Exercise/Activities Exercise/Activities/Manual Therapy: Pt sat EOM table for NMR, posture, weight shifting, and mid-line crsg act during all EX/act. Pt utilized 3# abdirizak bar/ green t-band for B UE strengthening along with graded digi-flex, peg board and putty/FMC act. HOME EXERCISE PROGRAM: Discussed with patient some more healthy choices of eating. Pt is to talk with the dietitian regarding his kidney problem. - Charges Timed Code Treatment Minutes: 48 Total Treatment Time: 48 Procedures billed for this date of service:: EX2 NMR Assessment Patient Education: Education of diagnosis, Body/Joint mechanics, Home Exercise Program, Home Safety, Activity Modification, Education of Plan of Care Patient demonstrates compliance with HEP?: Yes Short Term Goals Goal #1: Pt to increase BUE technical account executive strength to 35# to increase independence. Goal to be met by: 10/08/17 Progress towards goal: Progressing Goal #2: To increase fine motor coordination to increase ability to write in cursive Goal to be met by: 10/08/17 Progress towards goal: Progressing Goal #3: Pt to uncrease BUE pronation/supination to tolerate 1#. Goal to be met by: 10/08/17 Progress towards goal: Progressing Goal #4: Pt to increase BUE shoulder flexion strength to 4+/5. Goal to be met by: 10/08/17 Progress towards goal: Progressing Vice President Network Goals Goal #1: Pt to increase BUE shoulder flexion strength to 4+/5. Goal to be met by: 10/22/17 Progress towards goal: Progressing Goal #2: To increase fine motor coordination to be intact. Goal to be met by: 10/22/17 Progress towards goal: Progressing Goal #3: To increase sup/pron of BUE to tolerate 2-3# to open with doorknobs. Goal to be met by: 10/22/17 Progress towards goal: Progressing Goal #4: Pt to increase BUE shoulder flexion strength to 5/5. Goal to be met by: 10/22/17 Progress towards goal: Progressing Plan PLAN OF CARE EXPIRES ON:: 11/21/17 ORDER # VISITS AND/OR THROUGH DATE: November 21, 2017 PLAN: Cont per POC to max fx UE strength and FMC for all ADL's
--- NOTE | 2017-10-08 11:00 | RS.OPPTDN ---
Subjective Date of Note: 10/08/17 Visit #: 3 Date of Evaluation: 09/24/17 Payer Source: MEDICARE Treatment Diagnosis: severe LE weakness and impaired balance. Current Subjective/complaints:: No c/o. *Precautions: pt is high fall risk. Pain Assessment - Pain Description Pain Description: Tightness Other Comments regarding Pain:: tightness due to muscle spasms Interventions - Exercise/Activities/Manual Therapy Exercises/Activities: 30 mins. total ,transfers from power chair to therapy mat with supervision,then did passive stretches to both LE's,deep pressure / inhibition techniques due to hypertonus present.Stretches include hamstrings, lumbar paraspinals,heelcords,hip adducotrs. Total minutes of Exercise: 30 Manual Therapy: n/a Total minutes of Manual Therapy: 0 HOME EXERCISE PROGRAM: pt received HEP including lower trunk rotation stretch, knee to chest, hip add isometric, LAQ - Charges Timed Code Treatment Minutes: 30 Total Treatment Time: 35 Procedures billed for this date of service:: ex2 Assessment: Patient having more frequent muscle spasms today,requires more deep pressure to inhibit tone.Increased difficulty with addressing goals for strength in the LE's due to the spasms. Patient Education: Education of diagnosis, Body/Joint mechanics, Home Exercise Program, Home Safety, Activity Modification, Education of Plan of Care Short Term Goals Goal #1: pt independent with initial HEP Goal to be met by: 10/08/17 Progress towards Goal:: Progressing Goal #2: Improve BLE strength 4- to 4/5 Goal to be met by: 10/08/17 Progress towards Goal:: No Change Comments:: due to frequent spasms,strength is difficult to assess Goal #3: pt demonstrate good dyn sitting balance w no LOB w reaching/ min challenge Goal to be met by: 10/08/17 Progress towards Goal:: Progressing Goal #4: pt transfer sup to/from sit independently, sit to/from stand min x 1 Goal to be met by: 10/08/17 Progress towards Goal:: Progressing Long-Term Goals Goal #1: pt transfer sit to/from stand SBA Goal to be met by: 10/22/17 Goal #2: pt able to tolerate standing x 5 mins with SBA Goal to be met by: 10/22/17 Goal #3: pt transfer bed to/from w/c independently Goal to be met by: 10/22/17 Progress towards goal: Progressing Goal #4: pt able to amb 20ft with wx with min x 1 to improve mobility in home Goal to be met by: 10/22/17 Plan PLAN OF CARE EXPIRES ON:: 10/22/17 ORDER # VISITS AND/OR THROUGH DATE: 10/22/17 PLAN: Cont. PT to decrease LE tone,progress to strngthening as tolerated for safer transfers,possibly for short gait in-home distances.
--- NOTE | 2017-10-08 13:34 | RS.OTDNOTE ---
Subjective Date of Note: 10/08/17 Visit #: 3 Date of Evaluation: 09/24/17 Payer Source: MEDICARE Treatment Diagnosis: muscle weakness, impaired coordination *Precautions: pt is high fall risk. Current Complaints/Gains: Pt states he tries to communications coordinator his kitchen for LE WB but is difficult. States he feels like he could take some steps but agrees for safety to only perform standing and weight shifting. Pain Assessment - Pain Description Pain Description: Burning, Tightness, Sharp, Aching Pain Location: back, legs Interventions - Exercise/Activities Exercise/Activities/Manual Therapy: Pt sat EOM table for NMR, posture, weight shifting, and mid-line crsg act during all EX/act. Pt utilized 3# abdirizak bar/ green t-band for B UE strengthening along with graded digi-flex, peg board and putty/FMC act. Restor performed x 11 mins with 3# B wrist weights. Parallel bar static standing performed x 2-3+ mins x 2 with weight shifting HOME EXERCISE PROGRAM: Discussed with patient some more healthy choices of eating. Pt is to talk with the dietitian regarding his kidney problem. - Charges Timed Code Treatment Minutes: 48 Total Treatment Time: 52 Procedures billed for this date of service:: NMR EX ACT Assessment Patient Education: Education of diagnosis, Body/Joint mechanics, Home Exercise Program, Home Safety, Activity Modification, Education of Plan of Care Patient demonstrates compliance with HEP?: Yes Short Term Goals Goal #1: Pt to increase BUE senior tax specialist strength to 35# to increase independence. Goal to be met by: 10/08/17 Progress towards goal: Progressing Goal #2: To increase fine motor coordination to increase ability to write in cursive Goal to be met by: 10/08/17 Progress towards goal: Progressing Goal #3: Pt to uncrease BUE pronation/supination to tolerate 1#. Goal to be met by: 10/08/17 Progress towards goal: Progressing Goal #4: Pt to increase BUE shoulder flexion strength to 4+/5. Goal to be met by: 10/08/17 Progress towards goal: Progressing Pocket Machine Operator Goals Goal #1: Pt to increase BUE shoulder flexion strength to 4+/5. Goal to be met by: 10/22/17 Progress towards goal: Progressing Goal #2: To increase fine motor coordination to be intact. Goal to be met by: 10/22/17 Progress towards goal: Progressing Goal #3: To increase sup/pron of BUE to tolerate 2-3# to open with doorknobs. Goal to be met by: 10/22/17 Progress towards goal: Progressing Goal #4: Pt to increase BUE shoulder flexion strength to 5/5. Goal to be met by: 10/22/17 Progress towards goal: Progressing Plan PLAN OF CARE EXPIRES ON:: 10/22/17 ORDER # VISITS AND/OR THROUGH DATE: November 21, 2017 PLAN: Cont per POC
--- NOTE | 2017-10-11 11:55 | RS.OPPTDN ---
Subjective Date of Note: 10/11/17 Visit #: 4 Date of Evaluation: 09/24/17 Payer Source: MEDICARE Treatment Diagnosis: severe LE weakness and impaired balance. Current Subjective/complaints:: No c/o,appreciative of the therapy he is receiving. *Precautions: pt is high fall risk. Interventions - Exercise/Activities/Manual Therapy Exercises/Activities: 50 mins. total ,standing /balance activities in parallel bars,gait with min/mod assist length of bars forwards,backwards,and side- stepping.Transfers from w/c to mat with supervision.Stood with standard walker and mod assist of 1,able to do high steps to 70 degrees for 2/10.Isometric hip abd/addin sitting x10 each. Total minutes of Exercise: 50 Manual Therapy: n/a Total minutes of Manual Therapy: 0 HOME EXERCISE PROGRAM: pt received HEP including lower trunk rotation stretch, knee to chest, hip add isometric, LAQ - Charges Timed Code Treatment Minutes: 50 Total Treatment Time: 60 Procedures billed for this date of service:: gait 1 ,ther act 2 Assessment: Patient progressing ,has better trunk control,increased strength in LE's,indicated being able to ambulate in parallel bars .He is attentive and motivated to improve. Patient Education: Education of diagnosis, Body/Joint mechanics, Home Exercise Program, Home Safety, Activity Modification, Education of Plan of Care Patient demonstrates compliance with HEP?: Yes Short Term Goals Goal #1: pt independent with initial HEP Goal to be met by: 10/08/17 Progress towards Goal:: Progressing Goal #2: Improve BLE strength 4- to 4/5 Goal to be met by: 10/08/17 Progress towards Goal:: Progressing Goal #3: pt demonstrate good dyn sitting balance w no LOB w reaching/ min challenge Goal to be met by: 10/08/17 Progress towards Goal:: Progressing Goal #4: pt transfer sup to/from sit independently, sit to/from stand min x 1 Goal to be met by: 10/08/17 Progress towards Goal:: Progressing [facility] Goals Goal #1: pt transfer sit to/from stand SBA Goal to be met by: 10/22/17 Goal #2: pt able to tolerate standing x 5 mins with SBA Goal to be met by: 10/22/17 Progress towards goal: Progressing Goal #3: pt transfer bed to/from w/c independently Goal to be met by: 10/22/17 Progress towards goal: Progressing Goal #4: pt able to amb 20ft with wx with min x 1 to improve mobility in home Goal to be met by: 10/22/17 Progress towards goal: Progressing Comments: using parallel bars today Plan PLAN OF CARE EXPIRES ON:: 10/22/17 ORDER # VISITS AND/OR THROUGH DATE: 10/22/17 PLAN: Continue PT to increase LE strength,educate patient on inhibition techniques to reduce muscle spasms.Return to highest LOF.
--- NOTE | 2017-10-11 13:57 | RS.OTDNOTE ---
Subjective Date of Note: 10/11/17 Visit #: 4 Date of Evaluation: 09/24/17 Payer Source: MEDICARE Treatment Diagnosis: muscle weakness, impaired coordination *Precautions: pt is high fall risk. Current Complaints/Gains: Pt states he is amazed at the size of his feet now, swelling decreased. States he has not been able to aundrea shoes 2* swelling. States he tries to stand on his B LE's but mostly just performs s/p T/F's. Pain Assessment - Pain Description Pain Description: Burning, Tightness, Sharp, Aching Pain Location: back, legs Interventions - Exercise/Activities Exercise/Activities/Manual Therapy: Pt sat EOM table for NMR, posture, weight shifting, and mid-line crsg act during all EX/act. Pt utilized 3# abdirizak bar/ green t-band for B UE strengthening along with graded digi-flex, peg board and putty/FMC act. Restor performed x 10 mins with 4# B wrist weights. Parallel bar static standing/weight shifting performed x 2-3+ mins x 2 along with co-tx with VICE PRESIDENT OF NEWS for fx mobility trng in bars forward, backwards, and side stepping. Pt ed on posture and shoulder retraction ex's in standing. HOME EXERCISE PROGRAM: Discussed with patient some more healthy choices of eating. Pt is to talk with the dietitian regarding his kidney problem. - Charges Timed Code Treatment Minutes: 65 Total Treatment Time: 65 Procedures billed for this date of service:: NMR ACT2 EX Assessment Patient Education: Education of diagnosis, Body/Joint mechanics, Home Exercise Program, Home Safety, Activity Modification, Education of Plan of Care Patient demonstrates compliance with HEP?: Yes Short Term Goals Goal #1: Pt to increase BUE director of land strength to 35# to increase independence. Goal to be met by: 10/08/17 Progress towards goal: Progressing Goal #2: To increase fine motor coordination to increase ability to write in cursive Goal to be met by: 10/08/17 Progress towards goal: Progressing Goal #3: Pt to uncrease BUE pronation/supination to tolerate 1#. Goal to be met by: 10/08/17 Progress towards goal: Met Goal #4: Pt to increase BUE shoulder flexion strength to 4+/5. Goal to be met by: 10/08/17 Progress towards goal: Progressing Junior Mechanical Engineer Goals Goal #1: Pt to increase BUE shoulder flexion strength to 4+/5. Goal to be met by: 10/22/17 Progress towards goal: Progressing Goal #2: To increase fine motor coordination to be intact. Goal to be met by: 10/22/17 Progress towards goal: Progressing Goal #3: To increase sup/pron of BUE to tolerate 2-3# to open with doorknobs. Goal to be met by: 10/22/17 Progress towards goal: Progressing Goal #4: Pt to increase BUE shoulder flexion strength to 5/5. Goal to be met by: 10/22/17 Progress towards goal: Progressing Plan PLAN OF CARE EXPIRES ON:: 10/22/17 ORDER # VISITS AND/OR THROUGH DATE: November 21, 2017 PLAN: Cont per POC to max fx I, strength, endurance for ADL completion
--- NOTE | 2017-10-16 09:31 | RS.OTCXNS ---
OT Case Note Date of Scheduled Appointment: 10/16/17 Type: Cancel
== END 2017-10-13 23:59 ==
PROVIDERS: ATTEND Emergency Medicine
DX: M62.81 Muscle weakness (generalized) (principal); R26.89 Other abnormalities of gait and mobility; M54.5 Low back pain; G89.29 Other chronic pain; Z98.1 Arthrodesis status

== ENCOUNTER 2017-10-18 20:13 | Outpatient (CLI) | payer OTHER | END 2017-10-18 20:14 | disposition home or self-care (01) | LOC: LAB 20:13 | PROVIDERS: ATTEND Emergency Medicine | DX: N18.2 Chronic kidney disease, stage 2 (mild) (principal) | CPT/HCPCS: 36415; 80053 ==

== ENCOUNTER 2017-10-25 10:00 | Outpatient (RCR) ==
--- NOTE | 2017-10-18 14:38 | RS.OTDNOTE ---
Subjective Date of Note: 10/18/17 Visit #: 5 Date of Evaluation: 09/24/17 Payer Source: MEDICARE Treatment Diagnosis: muscle weakness, impaired coordination *Precautions: a Risk for falls Current Complaints/Gains: Pt states he is trying to get a rail built in his bathroom. States his power chair does not fit into his BR. States c/o spasms in his lumbar today with standing. Pain Assessment - Pain Description Pain Location: back, legs Interventions - Exercise/Activities Exercise/Activities/Manual Therapy: Pt sat EOM table for NMR, posture, weight shifting, and mid-line crsg act during all EX/act. Pt utilized 3# abdirizak bar/ green t-band for B UE strengthening along with graded digi-flex, peg board and putty/FMC act. Restor performed x 10 mins with 4# B wrist weights. Parallel bar static standing/weight shifting performed x 2-3+ mins x 2 along with co-tx with PT for fx mobility trng in bars forward, backwards, and side stepping. Pt ed on posture and shoulder retraction ex's in standing. HOME EXERCISE PROGRAM: Discussed with patient some more healthy choices of eating. Pt is to talk with the dietitian regarding his kidney problem. - Charges Timed Code Treatment Minutes: 62 Total Treatment Time: 75 Procedures billed for this date of service:: NMR EX2 ACT Assessment Patient Education: Education of diagnosis, Body/Joint mechanics, Home Exercise Program, Home Safety, Activity Modification, Education of Plan of Care Patient demonstrates compliance with HEP?: Yes Short Term Goals Goal #1: Pt to increase BUE bottled beverage inspector strength to 35# to increase independence. Goal to be met by: 10/08/17 Progress towards goal: Progressing Goal #2: To increase fine motor coordination to increase ability to write in cursive Goal to be met by: 10/08/17 Progress towards goal: Progressing Goal #3: Pt to uncrease BUE pronation/supination to tolerate 1#. Goal to be met by: 10/08/17 Progress towards goal: Met Goal #4: Pt to increase BUE shoulder flexion strength to 4+/5. Goal to be met by: 10/08/17 Progress towards goal: Progressing Correction Goals Goal #1: Pt to increase BUE shoulder flexion strength to 4+/5. Goal to be met by: 10/22/17 Progress towards goal: Progressing Goal #2: To increase fine motor coordination to be intact. Goal to be met by: 10/22/17 Progress towards goal: Progressing Goal #3: To increase sup/pron of BUE to tolerate 2-3# to open with doorknobs. Goal to be met by: 10/22/17 Progress towards goal: Progressing Goal #4: Pt to increase BUE shoulder flexion strength to 5/5. Goal to be met by: 10/22/17 Progress towards goal: Progressing Plan PLAN OF CARE EXPIRES ON:: 10/22/17 ORDER # VISITS AND/OR THROUGH DATE: November 21, 2017 PLAN: OTR to reassess pt
--- NOTE | 2017-10-18 14:44 | RS.PTSUM ---
Progress Note/Summary Date of Note: 10/18/17 Date of Evaluation: 10/01/17 Number of Visits: 5 Reporting Period for this Progress Note: 10/01/17-10/18/17 Current Complaints/Gains: pt states he is able to do more for himself at home. States he is finally able to wear shoes with decreased edema B feet. Objective Measurements/Presentation: pt transferred mat to power chair independently. pt transferred sit to/from stand CGA, amb in parallel bars forward and back x 6 with CGA. pt able to perform high steps, pt requires min cues for increasing LEXIE. pt performed side stepping up and back x 4 with CGA. pt with improved posture. G Codes: mobility walking and moving around current CL. mobility walking and moving around goal CK Source of G Code Score: LE functional scale and functional performance. - Short Term Goals Goal #1: pt independent with initial HEP Goal to be met by: 10/08/17 Progress towards Goal:: Met Goal #2: Improve BLE strength 4- to 4/5 Goal to be met by: 10/26/17 (dates extended) Progress towards Goal:: Progressing Goal #3: pt demonstrate good dyn sitting balance w no LOB w reaching/min challenge Goal to be met by: 10/08/17 Progress towards Goal:: Met Goal #4: pt transfer sup to/from sit independently, sit to/from stand min x 1 Goal to be met by: 10/08/17 (sup to/from sit independently, sit to/from stand CGA) Progress towards Goal:: Met - Charge Weigher Goals Goal #1: pt transfer sit to/from stand independently Goal to be met by: 11/02/17 (goal updated) Progress towards goal: Progressing Goal #2: pt able to stand performing functional activities at sink independently Goal to be met by: 11/02/17 (previous goal met, new goal) Progress towards goal: Progressing Goal #3: pt transfer bed to/from w/c independently Goal to be met by: 10/22/17 Progress towards goal: Met Goal #4: pt amb 20ft with wx with minx 1 to improve mobility at home Goal to be met by: 11/02/17 (dates extended) Progress towards goal: Progressing - Assessment Assessment of Improvement/Progress: pt has met STG 1, 3, 4, LTG 2, 3. pt goals updated and extended. pt has made significant improvement with transfers as well as gait. pt has also improved posture, and LE strengthening. Feel pt would benefit from continuing x 2 weeks to work on strengthening, standing as well as gait. Summary: Patient has made progress towards goals., Patient demonstrates potential to gain increased function with therapy - Plan Plan: Continue Plan of Care Frequency: 2 X week Duration: 2 weeks PLAN OF CARE EXPIRES ON:: 11/02/17 ORDER # VISITS AND/OR THROUGH DATE: 11/02/17
--- NOTE | 2017-10-19 11:01 | RS.OTCNOTE ---
OT Case Note Date of Note: 10/19/17 Title: No Show Note: Pt did not call to cancel his appointment. Pt did not show up for occupational therapy treatment.
--- NOTE | 2017-10-23 12:01 | RS.OPPTDN ---
Subjective Date of Note: 10/23/17 Visit #: 6 Date of Evaluation: 10/01/17 Payer Source: MEDICARE Treatment Diagnosis: LBP Current Subjective/complaints:: pt states he scapped the side of his toe and was unable to wear his tennis shoes. pt states he is feeling good today. *Precautions: a Risk for falls Interventions - Exercise/Activities/Manual Therapy Exercises/Activities: pt rode recumbant bike x 5 mins, worked on standing and transfers. pt transferred w/c to mat table independently. pt transferred sit to/ from stand CGA. pt amb with rwx 30ft with CGA x 1-2 with seated rest period. pt then amb 175ft with rwx with CGA x 1 +1 to push w/c. pt requires verbal cues to keep feet apart and to clear feet from floor. Total minutes of Exercise: 41 Manual Therapy: n/a HOME EXERCISE PROGRAM: pt reports he is continuing to work on HEP daily with UE and LE's - Charges Timed Code Treatment Minutes: 41 Total Treatment Time: 46 Procedures billed for this date of service:: gait 2, theract Assessment: pt has made significant improvement with transfers, gait as well as LE strength and endurance. pt has met STG 1, 3, 4 Patient Education: Home Exercise Program, Activity Modification, Education of Plan of Care Patient demonstrates compliance with HEP?: Yes Short Term Goals Goal #1: pt independent with initial HEP Goal to be met by: 10/08/17 Progress towards Goal:: Met Goal #2: Improve BLE strength 4- to 4/5 Goal to be met by: 10/26/17 (dates extended) Progress towards Goal:: Progressing Goal #3: pt demonstrate good dyn sitting balance w no LOB w reaching/min challenge Goal to be met by: 10/08/17 Progress towards Goal:: Met Goal #4: pt transfer sup to/from sit independently, sit to/from stand min x 1 Goal to be met by: 10/08/17 (sup to/from sit independently, sit to/from stand CGA) Progress towards Goal:: Met Penitentiary Goals Goal #1: pt transfer sit to/from stand independently Goal to be met by: 11/02/17 (goal updated) Progress towards goal: Progressing Goal #2: pt able to stand performing functional activities at sink independently Goal to be met by: 11/02/17 (previous goal met, new goal) Progress towards goal: Progressing Goal #3: pt transfer bed to/from w/c independently Goal to be met by: 10/22/17 Progress towards goal: Met Goal #4: pt amb 200ft with rwx with CGA 1 to improve mobility at home Goal to be met by: 11/02/17 (goal met, goal adjusted) Comments: pt has met previous goal, pt amb 30ft +175ft with CGA x 1 +1 for w/c Plan PLAN OF CARE EXPIRES ON:: 11/02/17 ORDER # VISITS AND/OR THROUGH DATE: 11/02/17 PLAN: Continue to progress with gait training as well as LE strengthening and balance.
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
--- NOTE | 2017-10-24 15:42 | RS.OTDNOTE ---
Subjective Date of Note: 10/23/17 Visit #: 6 Date of Evaluation: 09/24/17 Payer Source: MEDICARE Treatment Diagnosis: muscle weakness, impaired coordination *Precautions: a Risk for falls Current Complaints/Gains: Pt pleased with his returning UE strength and ability to walk today with a RW. States he is trying to get a consult with the dietian and is also trying to get into a new pain nikkie MD. Pain Assessment - Pain Description Pain Location: back, legs Current Pain Intensity: 0 Worst Pain Intensity: 0 Interventions - Exercise/Activities Exercise/Activities/Manual Therapy: Pt sat EOM table for NMR, posture, weight shifting, and mid-line crsg act during all EX/act. Pt utilized 3# abdirizak bar/ green progressed to blue t-band for B UE strengthening along with graded digi- flex, peg board and putty/FMC act. Restor performed x 10 mins with 4# B wrist weights. Fx mobility performed in therapy room and hallway with PT and use of rolling walker. Pt req vc's and ed for postural trng, stride length, and increasing LEXIE. Static standing while performing 1 handed act with weight bearing act performed x 3+ mins x 2. HOME EXERCISE PROGRAM: Blue t-band TE - Charges Timed Code Treatment Minutes: 55 Total Treatment Time: 68 Procedures billed for this date of service:: NMR EX2 ACT Assessment Patient Education: Education of diagnosis, Body/Joint mechanics, Home Exercise Program, Home Safety, Activity Modification, Education of Plan of Care Patient demonstrates compliance with HEP?: Yes Short Term Goals Goal #1: Pt to increase BUE road engineer freight strength to 35# to increase independence. Goal to be met by: 10/08/17 Progress towards goal: Progressing Goal #2: To increase fine motor coordination to increase ability to write in cursive Goal to be met by: 10/08/17 Progress towards goal: Progressing Goal #3: Pt to uncrease BUE pronation/supination to tolerate 1#. Goal to be met by: 10/08/17 Progress towards goal: Met Goal #4: Pt to increase BUE shoulder flexion strength to 4+/5. Goal to be met by: 10/08/17 Progress towards goal: Met Group Home Goals Goal #1: Pt to increase BUE shoulder flexion strength to 4+/5. Goal to be met by: 11/23/17 Progress towards goal: Met Goal #2: To increase fine motor coordination to be intact. Goal to be met by: 11/23/17 Progress towards goal: Progressing Goal #3: To increase sup/pron of BUE to tolerate 2-3# to open with doorknobs. Goal to be met by: 11/23/17 Progress towards goal: Progressing Goal #4: Pt to increase BUE shoulder flexion strength to 5/5. Goal to be met by: 11/23/17 Progress towards goal: Progressing Plan PLAN OF CARE EXPIRES ON:: 11/23/17 ORDER # VISITS AND/OR THROUGH DATE: November 23, 2017 PLAN: Cont per POC to max fx UE strength for ADL completion.
--- NOTE | 2017-10-25 13:22 | RS.OTDNOTE ---
Subjective Date of Note: 10/25/17 Visit #: 7 Date of Evaluation: 09/24/17 Payer Source: MEDICARE Treatment Diagnosis: muscle weakness, impaired coordination *Precautions: a Risk for falls Current Complaints/Gains: Pt reports he has been walking more at home. Reports feeling stronger in his UE's. Pain Assessment - Pain Description Pain Location: back, legs Interventions - Exercise/Activities Exercise/Activities/Manual Therapy: Pt sat EOM table for NMR, posture, weight shifting, and mid-line crsg act during all EX/act. Pt utilized 4# abdirizak bar blue t-band for B UE strengthening along with graded digi-flex, peg board and putty/FMC act. Restor performed x 10 mins with 4# B wrist weights. Fx mobility performed in therapy room and hallway with PT and use of rolling walker. Pt req vc's and ed for postural trng, stride length, and increasing LEXIE. Static standing while performing 1 handed act with weight bearing act performed x 3+ mins x 2. HOME EXERCISE PROGRAM: Blue t-band TE - Charges Timed Code Treatment Minutes: 56 Total Treatment Time: 56 Procedures billed for this date of service:: EX2 NMR ACT Assessment Patient Education: Education of diagnosis, Body/Joint mechanics, Home Exercise Program, Home Safety, Activity Modification, Education of Plan of Care Patient demonstrates compliance with HEP?: Yes Short Term Goals Goal #1: Pt to increase BUE director of community center strength to 35# to increase independence. Goal to be met by: 10/08/17 Progress towards goal: Progressing Comments: 14# 17# Goal #2: To increase fine motor coordination to increase ability to write in cursive Goal to be met by: 10/08/17 Progress towards goal: Partially Met Comments: Writing is easier Goal #3: Pt to uncrease BUE pronation/supination to tolerate 1#. Goal to be met by: 10/08/17 Progress towards goal: Met Goal #4: Pt to increase BUE shoulder flexion strength to 4+/5. 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 Goal to be met by: 11/23/17 Progress towards goal: Met Goal #2: To increase fine motor coordination to be intact. Goal to be met by: 11/23/17 Progress towards goal: Progressing Goal #3: To increase sup/pron of BUE to tolerate 2-3# to open with doorknobs. Goal to be met by: 11/23/17 Progress towards goal: Progressing Goal #4: Pt to increase BUE shoulder flexion strength to 5/5. Goal to be met by: 11/23/17 Progress towards goal: Progressing Plan PLAN OF CARE EXPIRES ON:: 11/23/17 ORDER # VISITS AND/OR THROUGH DATE: November 23, 2017 PLAN: Cont per POC to max fx strength
--- NOTE | 2017-10-25 16:13 | RS.OPPTDN ---
Subjective Date of Note: 10/25/17 Visit #: 7 Date of Evaluation: 10/01/17 Payer Source: MEDICARE Treatment Diagnosis: LBP Current Subjective/complaints:: Patient reports he is pleased with his walking today. Reports he is fatigued, but can see progress with his strength. *Precautions: a Risk for falls Interventions - Exercise/Activities/Manual Therapy Exercises/Activities: Worked on standing and transfers. Sit to/from stand CGA to supervision today. Patient amb with min to CGA 174' x2 with sitting rest break between. He takes slow, deliberate steps. Verbal cues to increase step width, length, and correct posture. Patient demos improved step height. Standing balance has improved and patient demos good UE strength with walker advancement during gait training. Total minutes of Exercise: 26mins Manual Therapy: n/a HOME EXERCISE PROGRAM: pt reports he is continuing to work on HEP daily with UE and LE's - Charges Timed Code Treatment Minutes: 26mins Total Treatment Time: 32mins Procedures billed for this date of service:: GTx2 Assessment: Patient fatigued follwoing gait training today, but demos improvement with stride, walker advancement, balance, and functional endurance. Patient Education: Home Safety, Activity Modification Short Term Goals Goal #1: pt independent with initial HEP Goal to be met by: 10/08/17 Progress towards Goal:: Met Goal #2: Improve BLE strength 4- to 4/5 Goal to be met by: 10/26/17 (dates extended) Progress towards Goal:: Progressing Goal #3: pt demonstrate good dyn sitting balance w no LOB w reaching/min challenge Goal to be met by: 10/08/17 Progress towards Goal:: Met Goal #4: pt transfer sup to/from sit independently, sit to/from stand min x 1 Goal to be met by: 10/08/17 (sup to/from sit independently, sit to/from stand CGA) Progress towards Goal:: Met Fpc Goals Goal #1: pt transfer sit to/from stand independently Goal to be met by: 11/02/17 (goal updated) Progress towards goal: Progressing Goal #2: pt able to stand performing functional activities at sink independently Goal to be met by: 11/02/17 (previous goal met, new goal) Progress towards goal: Progressing Goal #3: pt transfer bed to/from w/c independently Goal to be met by: 10/22/17 Progress towards goal: Met Goal #4: pt amb 200ft with rwx with CGA 1 to improve mobility at home Goal to be met by: 11/02/17 (goal met, goal adjusted) Progress towards goal: Partially Met Plan PLAN OF CARE EXPIRES ON:: 11/02/17 ORDER # VISITS AND/OR THROUGH DATE: 11/02/17 PLAN: Continue to progress with standing and ambulation to increase functional independence at home.
--- NOTE | 2017-10-29 10:57 | RS.OTCXNS ---
OT Case Note Date of Scheduled Appointment: 10/29/17 Type: No Show
--- NOTE | 2017-11-01 09:58 | RS.CXNS ---
Date of scheduled appointment: 11/01/17 Type: Cancel Reason for Cancel/NS: Called and cancelled ,states he is on his way to [place] ,but no reason given.
--- NOTE | 2017-11-05 10:44 | RS.OTCXNS ---
OT Case Note Date of Scheduled Appointment: 11/05/17 Type: Rescheduled (Pt attended therapy but was scheduled for dentist visit also. Pt rescheduled OT/PT for tomorrow.)
--- NOTE | 2017-11-06 10:20 | RS.OTCXNS ---
OT Case Note Date of Scheduled Appointment: 11/06/17 Type: No Show
--- NOTE | 2017-11-06 14:12 | RS.CXNS ---
Date of scheduled appointment: 11/05/17 Type: No Show
--- NOTE | 2017-11-06 14:13 | RS.CXNS ---
Date of scheduled appointment: 11/06/17 Type: No Show
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
--- NOTE | 2017-11-12 10:27 | RS.OTDCSUM ---
Subjective Date of Discharge: 10/25/17 Date of Evaluation: 09/24/17 Number of Visits: 7 Treatment Diagnosis: M62.81 Muscle weakness, R27.8 Impaired coordination Current Level of Function: Pt is completing static standing with one hand holding on and one hand to complete activities/ADLS. Pt is improving in his strength of BUE bait packer, shoulder flexion -4, elbow flexion -4, wrist flexion/ extension -4, and coordination is improving.Pt is able to ride the restorator for 10 minutes. 7# gripper. Pt has difficulty using is BUE hands due to weakness and impaired coordination. Pt is living alone, cooking for himself, toileting himself, and dressing himself with extra time. Pt is using a RW and a powerchair at home. Current Complaints/Gains: Pt has weakness and impaired coordination of BUE and has difficulty with ADLS. Pain Assessment - Pain Description Pain Description: Burning, Sharp, Dull Pain Location: back, legs Functional Outcome Measures - G Codes & Severity Modifier G Codes: current G code is CJ. Goal is CI Source of G Code score: Carry, moving, and handling objects Observation - Observation Posture: Forward Head Handedness: Right Shoulder ROM: Bilaterally WFL's - Left Shoulder Strength Left Shoulder Flexion: 4- Good- Left Shoulder Extension: 4- Good- Left Shoulder Abduction: 4- Good- Left Shoulder Adduction: 4- Good- Left Shoulder External Rotation: 4- Good- Left Shoulder Internal Rotation: 4- Good- - Right Shoulder Strength Right Shoulder Flexion: 4- Good- Right Shoulder Extension: 4- Good- Right Shoulder Abduction: 4- Good- Right Shoulder Adduction: 4- Good- Right Shoulder External Rotation: 4- Good- Right Shoulder Internal Rotation: 4- Good- Elbow ROM: Bilaterally WFL's - Left Elbow Strength Left Elbow Extension: 4- Good- Left Elbow Flexion: 4- Good- Left Forearm Pronation: 4- Good- Left Forearm Supination: 4- Good- - Right Elbow Strength Right Elbow Extension: 4- Good- Right Elbow Flexion: 4- Good- Right Forearm Pronation: 4- Good- Right Forearm Supination: 4- Good- Palpation Palpation Findings: Tenderness Sensation Right Upper Extremity: Intact/Normal Left Upper Extremity: Intact/Normal Interventions - Exercise/Activities Exercise/Activities/Manual Therapy: Pt sat EOM table for NMR, posture, weight shifting, and mid-line crsg act during all EX/act. Pt utilized 4# abdirizak bar blue t-band for B UE strengthening along with graded digi-flex, peg board and putty/FMC act. Restor performed x 10 mins with 4# B wrist weights. Fx mobility performed in therapy room and hallway with PT and use of rolling walker. Pt req vc's and ed for postural trng, stride length, and increasing LEXIE. Static standing while performing 1 handed act with weight bearing act performed x 3+ mins x 2. HOME EXERCISE PROGRAM: Blue t-band TE - Charges Timed Code Treatment Minutes: . Total Treatment Time: . Procedures billed for this date of service:: . Assessment Patient Education: Education of diagnosis, Home Exercise Program, Education of Plan of Care Rehab Potential: Good Problems/Comments: Pt continues with weakness of BUE, impaired coordination, and requires extra time for self care management. Pt has improved his strength and is improving toward his OT goals. Short Term Goals Goal #1: Pt to increase BUE bait packer strength to 35# to increase independence. Goal to be met by: 10/08/17 Progress towards goal: Progressing Goal #2: To increase fine motor coordination to increase ability to write in cursive Goal to be met by: 10/08/17 Progress towards goal: Partially Met Goal #3: Pt to uncrease BUE pronation/supination to tolerate 1#. Goal to be met by: 10/08/17 Progress towards goal: Met Goal #4: Pt to increase BUE shoulder flexion strength to 4+/5. Goal to be met by: 10/08/17 Progress towards goal: Met Alf Goals Goal #1: Pt to increase BUE shoulder flexion strength to 4+/5. Goal to be met by: 11/23/17 Progress towards goal: Met Goal #2: To increase fine motor coordination to be intact. Goal to be met by: 11/23/17 Progress towards goal: Progressing Goal #3: To increase sup/pron of BUE to tolerate 2-3# to open with doorknobs. Goal to be met by: 11/23/17 Progress towards goal: Progressing Goal #4: Pt to increase BUE shoulder flexion strength to 5/5. Goal to be met by: 11/23/17 Progress towards goal: Progressing Plan Reason for Discharge:: Poor Attendance/Compliance
== END 2017-11-13 23:59 ==
PROVIDERS: ATTEND Emergency Medicine
DX: M62.81 Muscle weakness (generalized) (principal); R26.81 Unsteadiness on feet; Z98.1 Arthrodesis status; V89.2XXD Person injured in unspecified motor-vehicle accident, traffic, subsequent encounter; N18.2 Chronic kidney disease, stage 2 (mild)
CPT/HCPCS: 36415; 80053

== ENCOUNTER 2017-11-29 13:57 | Outpatient (CLI) | payer OTHER ==
[2017-11-29 16:02] VITALS: BMI 21.2
== END 2017-11-29 13:58 | disposition home or self-care (01) ==
LOC: DIETCN 13:57
PROVIDERS: ATTEND Emergency Medicine
DX: I10 Essential (primary) hypertension (principal); B18.2 Chronic viral hepatitis C; D50.8 Other iron deficiency anemias; N18.2 Chronic kidney disease, stage 2 (mild)

== ENCOUNTER 2017-11-30 11:58 | Outpatient (CLI) | payer OTHER ==
[2017-11-29 16:02] VITALS: BMI 21.2
== END 2017-11-30 11:59 | disposition home or self-care (01) ==
LOC: CAR 11:58
PROVIDERS: ATTEND Emergency Medicine
DX: I10 Essential (primary) hypertension (principal); B18.2 Chronic viral hepatitis C; R00.2 Palpitations
CPT/HCPCS: 36415; 80053; 85025; 93005; 93010

== ENCOUNTER 2017-12-27 15:12 | Outpatient (CLI) | payer OTHER | END 2017-12-27 15:13 | disposition home or self-care (01) | LOC: LAB 15:12 | PROVIDERS: ATTEND Internal Medicine | DX: N18.4 Chronic kidney disease, stage 4 (severe) (principal); I12.9 Hypertensive chronic kidney disease with stage 1 through stage 4 chronic kidney disease, or unspecified chronic kidney disease; D63.1 Anemia in chronic kidney disease; R80.9 Proteinuria, unspecified; R60.9 Edema, unspecified | CPT/HCPCS: 80069; 81001; 81050; 82575; 83516; 83520; 83970; 84156; 85014; 85018; 86038; 86160; 86256; 86325; 86803; 87340 ==

== ENCOUNTER 2018-07-10 15:23 | Outpatient (CLI) | END 2018-07-10 15:24 | disposition home or self-care (01) | LOC: LAB 15:23 | PROVIDERS: ATTEND Internal Medicine | DX: N18.4 Chronic kidney disease, stage 4 (severe) (principal); E87.2 Acidosis; R31.9 Hematuria, unspecified; I12.9 Hypertensive chronic kidney disease with stage 1 through stage 4 chronic kidney disease, or unspecified chronic kidney disease; D63.1 Anemia in chronic kidney disease; N25.81 Secondary hyperparathyroidism of renal origin; R80.9 Proteinuria, unspecified; R60.9 Edema, unspecified | CPT/HCPCS: 36415; 80069; 83970; 85014; 85018 ==

== ENCOUNTER 2018-07-15 10:45 | Outpatient (CLI) | END 2018-07-15 10:46 | disposition home or self-care (01) | LOC: LAB 10:45 | PROVIDERS: ATTEND Internal Medicine | DX: N18.4 Chronic kidney disease, stage 4 (severe) (principal); I12.9 Hypertensive chronic kidney disease with stage 1 through stage 4 chronic kidney disease, or unspecified chronic kidney disease; D63.1 Anemia in chronic kidney disease; N25.81 Secondary hyperparathyroidism of renal origin; R80.9 Proteinuria, unspecified; R60.9 Edema, unspecified; E87.2 Acidosis; K31.9 Disease of stomach and duodenum, unspecified | CPT/HCPCS: 36415; 80069; 82570; 83970; 84156; 86706; 86803; 87340 ==

== ENCOUNTER 2018-07-22 16:26 | Outpatient (CLI) | payer OTHER | END 2018-07-22 16:27 | disposition home or self-care (01) | LOC: LAB 16:26 | PROVIDERS: ATTEND Internal Medicine | DX: N18.4 Chronic kidney disease, stage 4 (severe) (principal); I12.9 Hypertensive chronic kidney disease with stage 1 through stage 4 chronic kidney disease, or unspecified chronic kidney disease; N25.81 Secondary hyperparathyroidism of renal origin; R80.9 Proteinuria, unspecified; R60.9 Edema, unspecified; E87.2 Acidosis; R31.9 Hematuria, unspecified | CPT/HCPCS: 36415; 80048; 82570; 83970; 84156; 86706; 86803; 87340 ==

== ENCOUNTER 2018-07-29 13:54 | Outpatient (CLI) | payer OTHER | END 2018-07-29 13:55 | disposition home or self-care (01) | LOC: LAB 13:54 | PROVIDERS: ATTEND Internal Medicine | DX: N18.4 Chronic kidney disease, stage 4 (severe) (principal); I12.9 Hypertensive chronic kidney disease with stage 1 through stage 4 chronic kidney disease, or unspecified chronic kidney disease; N25.81 Secondary hyperparathyroidism of renal origin; R80.9 Proteinuria, unspecified; R60.9 Edema, unspecified; E87.2 Acidosis; R31.9 Hematuria, unspecified | CPT/HCPCS: 36415; 80048 ==

== ENCOUNTER 2018-08-07 15:39 | Outpatient (CLI) ==
--- NOTE | 2018-08-07 21:22 | DI ---
Examination: Two views of the chest. [place] HISTORY: Screening for tuberculosis. COMPARISON: 08/30/2017. FINDINGS: The cardiomediastinal silhouette appears enlarged. Aortic arch atherosclerosis is present . Stable probable bone island in the medial left clavicle. There is no focal pulmonary infiltrate. There is no significant pleural effusion. Basilar atelectatic changes are present. Interval healin g with deformity right eighth rib laterally. Osseous structures otherwise without significant abnorm alities. Probable enteric tube overlies the upper left abdomen. IMPRESSION: No acute cardiopulmonary abnormality. Atelectasis at the bases.
== END 2018-08-07 15:40 | disposition home or self-care (01) ==
LOC: RAD 15:39
PROVIDERS: ATTEND Internal Medicine
DX: N18.5 Chronic kidney disease, stage 5 (principal); Z11.1 Encounter for screening for respiratory tuberculosis

== ENCOUNTER 2018-08-26 02:22 | Emergency (ER) ==
[2018-08-26 02:37] VITALS: TEMP 96
[2018-08-26] MEDS ORDERED: TRANDATE IVP STA (03:19)
--- NOTE | 2018-08-26 03:23 | ED.PDOC ---
General ED Provider: Dr. MILY GOSS Chief Complaint: Hypertension Stated Complaint: Elevated blood pressure since he has been out of his Hydralazine. He is looking for a Doctor since Dr Sweeney left the area. Missed apt with Dr. Fuentes x 2 hand hence cannot be accepted according to patient. Previously had this problem and had to be admitted for blood pressure control. Does his own Home peritoneal dialysis. Time Seen by Physician: 03:21 Mode of Arrival: Walk-In Information Source: Patient Nursing and Triage Documentation Reviewed and Agree: Yes Does patient meet sepsis criteria?: No System Inflammatory Response Syndrome: Not Applicable Sepsis Protocol: For patient's 13 years and over: Temp is 96.8 and below OR 101 and greater Pulse >90 BPM Resp >20/minute Acutely Altered Mental Status Are patient's symptoms suggestive of a new infection, such as: -Pneumonia -Skin, Soft Tissue -Endocarditis -UTI -Bone, Joint Infection -Implantable Device -Acute Abdominal Infection -Wound Infection -Meningitis -Blood Stream Catheter Infection -Unknown Review of Systems - Review Of Systems Constitutional: Reports: No symptoms Eyes: Reports: No symptoms Ears, Nose, Mouth, Throat: Reports: No symptoms Respiratory: Reports: No symptoms Cardiac: Reports: No symptoms GI: Reports: No symptoms : Reports: No symptoms Musculoskeletal: Reports: Back pain Skin: Reports: No symptoms Neurological: Reports: Anxiety Endocrine: Reports: No symptoms Hematologic/Lymphatic: Reports: No symptoms All Other Systems: Reviewed and Negative Past Medical History - Past Medical History Previously Healthy: Yes Endocrine: Reports: Dyslipidemia Cardiovascular: Reports: Hypertension Respiratory: Reports: COPD Hematological: Reports: None, Anemia Gastrointestinal: Reports: GERD, Liver (HEPATITIS C) Genitourinary: Reports: CKD, Other (ED) Neuro/Psych: Reports: None Musculoskeletal: Reports: Arthritis, Back Pain (chronic back ), Joint Pain ( Degen disk dz per recent MRI, according to patient) Cancer: Reports: None - Surgical History General Surgical History: Reports: Orthopedic ( LEFT HIP, BILATERAL FOOT SURGERY ,NECK SURG FUSION 1972, LEFT ARM SURG), Back Surgery (CS FUSION), Other (BOTH FEET; LEFT HIP SURG) - Family History Family History: Reports: Unknown - Social History Smoking Status: Former smoker Hx Substance Use: No Alcohol Screening: None - Immunizations Tetanus Shot up to Date: Yes Influenza Vaccine within 12 Months: No Pneumococcal Vaccine up to Date: No Physical Exam - Physical Exam Appearance: Ill-appearing Pain Distress: None Eyes: REINA, EOMI, Conjunctiva clear ENT: Nose normal, Oropharynx normal Respiratory: Airway patent, Breath sounds clear, Breath sounds equal, Respirations nonlabored Cardiovascular: RRR, Pulses normal, No rub, No murmur GI/: Soft, Nontender, No masses, Bowel sounds normal, No Organomegaly Musculoskeletal: Normal strength, ROM intact, No edema, No calf tenderness Skin: Warm, Dry, Normal color Neurological: Sensation intact, Motor intact, Reflexes intact, Cranial nerves intact, Alert, Oriented Psychiatric: Anxious Re-Evaluation - Re-Evaluation Time of Re-Evaluation: 04:30 Status: Improved Vital Signs Stable: Yes (168/99) Critical Care Note - Critical Care Note Total Time (mins): 30 Course - Course Orders, Labs, Meds: Orders Category Date Time Status IV [ED IV/MEDIPORT/POWERPORT] .ONCE EMERGENCY 08/26/18 03:25 Active 0.9 % Sodium Chloride [Saline Flush] MEDS 08/26/18 03:25 Discontinued 1 syr IVF PRN PRN Hydralazine HCl [Apresoline] MEDS 08/26/18 03:29 Discontinued 25 mg PO ONCE STA Labetalol HCl [Trandate] MEDS 08/26/18 03:19 Discontinued 20 mg IVP ONCE STA Medications Discontinued Medications Generic Name Dose Route Start Last Admin Trade Name Freq PRN Reason Stop Dose Admin Hydralazine HCl 25 mg 08/26/18 03:29 08/26/18 03:33 Apresoline PO 08/26/18 03:30 25 mg ONCE STA Administration Labetalol HCl 20 mg 08/26/18 03:19 08/26/18 03:29 Trandate IVP 08/26/18 03:20 20 mg ONCE STA Administration Sodium Chloride 1 syr 08/26/18 03:25 08/26/18 03:29 Saline Flush IVF 1 syr PRN PRN Administration To flush IV Vital Signs: Temp Pulse Resp BP Pulse Ox 08/26/18 04:25 168/99 H 08/26/18 02:23 96 F L 68 20 193/111 H 98 Departure - Departure Time of Disposition: 04:30 Disposition: HOME SELF-CARE Discharge Problem: Hypertensive urgency Chronic back pain Qualifiers: Back pain location: low back pain Back pain laterality: unspecified Sciatica presence: without sciatica Qualified Code(s): M54.5 - Low back pain Instructions: Chronic Hypertension (ED), Chronic Back Pain (DC) Condition: Stable Pt referred to PMD for follow-up: Yes IPMP verified?: No Additional Instructions: TAKE MEDICATIONS PRESCRIBED, FOLLOW UP WITH THE CLINIC IN 3-5 DAYS MONITOR YOUR BLOOD PRESSURE AND BRING LOG TO THE CLINIC. RETURN TO THE ER IF BLOOD PRESSURE STILL NOT CONTROLLED. Prescriptions: Hydrocodone Bit/Acetaminophen [[place] 5-325] 1 each PO Q6HR PRN #20 tablet PRN Reason: severe pain Hydralazine HCl [Apresoline] 50 mg PO Q08H #90 tablet Allergies/Adverse Reactions: Allergies lisinopril Allergy (Severe, Verified 08/26/18 02:37) Face swelling Patient to notify drugstore enalaprilat [From Vasotec] Adverse Reaction (Mild, Verified 08/26/18 02:37) Itching Patient experienced facial flushing and itching. Home Medications: Ambulatory Orders Hydralazine HCl [Apresoline] 50 mg PO Q08H #90 tablet 08/26/18 Hydrocodone Bit/Acetaminophen [[place] 5-325] 1 each PO Q6HR PRN #20 tablet Losartan Potassium [Cozaar] 50 mg PO DAILY 08/26/18 Disposition Discussed With: Patient
[2018-08-26] MEDS ORDERED: APRESOLINE PO STA (03:29)
[2018-08-26 04:54] VITALS: BP 168/99; BMI 23.0
== END 2018-08-26 04:30 | disposition home or self-care (01) ==
LOC: ED 02:22
DX: I16.0 Hypertensive urgency (principal); M54.5 Low back pain; G89.29 Other chronic pain; Z91.14 Patient's other noncompliance with medication regimen; E78.5 Hyperlipidemia, unspecified; N18.9 Chronic kidney disease, unspecified; D63.1 Anemia in chronic kidney disease; Z99.2 Dependence on renal dialysis; Z87.19 Personal history of other diseases of the digestive system
CPT/HCPCS: 96374; 96375; 99283

== ENCOUNTER 2018-10-10 09:07 | Emergency (ER) ==
[2018-10-10 09:21] VITALS: BMI 21.6
[2018-10-10] MEDS ORDERED: CATAPRES PO STA (10:01)
--- NOTE | 2018-10-10 10:05 | ED.PDOC ---
General ED Provider: Dr. KAYLA MCGOVERN Chief Complaint: Hypertension Stated Complaint: Elevated BP and chronic low back pain . Has been dizzy this morning but did not chech his BP. Hx HTN renal failure. Peritoneal dialiysis this AM. BP reads 214/114 in triage. Also c/o chronic back pain Time Seen by Physician: 09:50 Mode of Arrival: Wheelchair Information Source: Patient Exam Limitations: No limitations Nursing and Triage Documentation Reviewed and Agree: Yes Does patient meet sepsis criteria?: No System Inflammatory Response Syndrome: Not Applicable Sepsis Protocol: For patient's 13 years and over: Temp is 96.8 and below OR 101 and greater Pulse >90 BPM Resp >20/minute Acutely Altered Mental Status Are patient's symptoms suggestive of a new infection, such as: -Pneumonia -Skin, Soft Tissue -Endocarditis -UTI -Bone, Joint Infection -Implantable Device -Acute Abdominal Infection -Wound Infection -Meningitis -Blood Stream Catheter Infection -Unknown Cardiovascular Complaint Exam - Hypertension Complaint/Exam Onset/Duration: Long standing Symptoms Are: Still present Timing: Constant Aggravating: Reports: Exertion Alleviating: Reports: None Associated Signs and Symptoms: Denies: Chest pain, Vision changes, Anxiety, Recent stress, Headache, Numbness, Tingling, Weakness, Dizziness, Short of air, Swelling Related History: Reports: Similar episode, Current ARBs Related Surgical History: Reports: None Cardiac Risk Factors: Reports: Hypertension, Family history Recent Change in Medications: No A/V [place]: No Papilledema Present: No JVD Present: No Carotid Bruit Present: No Femoral Pulses Bounding: No Differential Diagnoses: Hypertension, Hypertensive Urgency Review of Systems - Review Of Systems Constitutional: Reports: No symptoms Eyes: Reports: No symptoms Ears, Nose, Mouth, Throat: Reports: No symptoms Respiratory: Reports: No symptoms Cardiac: Reports: Lightheadedness GI: Reports: No symptoms : Reports: No symptoms Musculoskeletal: Reports: Back pain Skin: Reports: No symptoms Neurological: Reports: No symptoms Endocrine: Reports: No symptoms Hematologic/Lymphatic: Reports: No symptoms All Other Systems: Reviewed and Negative Past Medical History - Past Medical History Previously Healthy: Yes Endocrine: Reports: Dyslipidemia Cardiovascular: Reports: Hypertension Respiratory: Reports: COPD Hematological: Reports: None, Anemia Gastrointestinal: Reports: None, GERD, Liver Genitourinary: Reports: None, CKD, Other Neuro/Psych: Reports: None Musculoskeletal: Reports: Arthritis, Joint Pain Cancer: Reports: None - Surgical History General Surgical History: Reports: Orthopedic ( LEFT HIP, BILATERAL FOOT SURGERY ,NECK SURG FUSION 1973, LEFT ARM SURG), Back Surgery (CS FUSION), Other (BOTH FEET; LEFT HIP SURG) - Family History Family History: Reports: Unknown - Social History Smoking Status: Former smoker Hx Substance Use: No Alcohol Screening: None - Immunizations Influenza Vaccine within 12 Months: No Pneumococcal Vaccine up to Date: No Physical Exam - Physical Exam Appearance: Well-appearing, No pain distress, Well-nourished Eyes: REINA, EOMI, Conjunctiva clear ENT: Ears normal, Nose normal, Oropharynx normal Respiratory: Airway patent, Breath sounds clear, Breath sounds equal, Respirations nonlabored Cardiovascular: RRR, Pulses normal, No rub, No murmur GI/: Soft, Nontender, No masses, Bowel sounds normal, No Organomegaly Musculoskeletal: Normal strength (low back pain), ROM intact, No edema, No calf tenderness Skin: Warm, Dry, Normal color Neurological: Sensation intact, Motor intact, Reflexes intact, Cranial nerves intact, Alert, Oriented Psychiatric: Affect appropriate, Mood appropriate Interpretation - Radiology Interpretation Radiology Interpretation By: ED Physician Physician Notification - Case Discussed Physician Notified: Dr Woodard in [place] Time of Notification: 12:15 (Discussed case, lab findings. Rec cont tx for BP and follow up with Dr Washburn her [place] [facility] as directed) Critical Care Note - Critical Care Note Total Time (mins): 60 Course - Course Hematology/Chemistry: 10/10/18 10:24 10/10/18 10:24 Orders, Labs, Meds: Lab Review 10/10/18 10/10/18 10/10/18 10:24 10:24 10:24 WBC 5.49 RBC 2.47 L Hgb 7.7 L Hct 24.4 L MCV 98.8 H MCH 31.2 H MCHC 31.6 L RDW Coeff of Carlita 12.7 Plt Count 139 L Immature Gran % (Auto) 0.4 Neut % (Auto) 54.7 Lymph % (Auto) 33.5 [place] % (Auto) 8.7 Eos % (Auto) 2.2 Baso % (Auto) 0.5 Immature Gran # (Auto) 0.0 Neut # (Auto) 3.0 Lymph # (Auto) 1.8 [place] # (Auto) 0.5 Eos # (Auto) 0.1 Baso # (Auto) 0.0 Sodium 141.4 Potassium 5.53 H Chloride 109.5 H Carbon Dioxide 23.8 Anion Gap 13.63 BUN 44.5 H Creatinine 4.41 H* Estimated GFR (MDRD) 17.00 BUN/Creatinine Ratio 10.09 Glucose 102.2 Calcium 9.91 Iron TIBC % Saturation Total Bilirubin 0.47 AST 26.0 ALT 16.8 Alkaline Phosphatase 57.4 Troponin I 0.036 Serum Total Protein Total Protein 6.89 Albumin 3.86 Albumin % (PEP) Globulin 3.03 Globulin (PEP) Albumin/Globulin Ratio 1.27 Rjstz-5-Yexywpsfy Bbqty-4-Jznukrmvp Beta Globulins Gamma Globulins M-Alphonso PEP Note Vitamin B12 Folate > 20.00 Urine Color Urine Clarity Urine pH Ur Specific [place] Urine Protein Urine Glucose (UA) Urine Ketones Urine Blood Urine Nitrite Urine Bilirubin Urine Urobilinogen Ur Leukocyte Esterase Urine Microscopic RBC Urine Microscopic WBC Ur Squamous Epith Cells Urine Opiates Screen Ur Oxycodone Screen Urine Methadone Screen Ur Propoxyphene Screen Ur Barbiturates Screen U Tricyclic Antidepress Ur Phencyclidine Scrn Ur Amphetamine Screen U Methamphetamines Scrn U Benzodiazepines Scrn Urine Cocaine Screen U Cannabinoids Screen 10/10/18 10/10/18 10/10/18 10:24 10:24 12:35 WBC RBC Hgb Hct MCV MCH MCHC RDW Coeff of Carlita Plt Count Immature Gran % (Auto) Neut % (Auto) Lymph % (Auto) [place] % (Auto) Eos % (Auto) Baso % (Auto) Immature Gran # (Auto) Neut # (Auto) Lymph # (Auto) [place] # (Auto) Eos # (Auto) Baso # (Auto) Sodium Potassium Chloride Carbon Dioxide Anion Gap BUN Creatinine Estimated GFR (MDRD) BUN/Creatinine Ratio Glucose Calcium Iron 35.9 L TIBC 240 L % Saturation 15 Total Bilirubin AST ALT Alkaline Phosphatase Troponin I Serum Total Protein 6.4 Total Protein Albumin Albumin % (PEP) 3.5 Globulin Globulin (PEP) 2.9 Albumin/Globulin Ratio 1.2 Qoncx-2-Fgybcypuz 0.2 Kowmc-2-Vwmmtfnfz 0.8 Beta Globulins 0.8 Gamma Globulins 1.2 M-Alphonso 0.6 H PEP Note Comment Vitamin B12 555 Folate Urine Color Urine Clarity Urine pH Ur Specific [place] Urine Protein Urine Glucose (UA) Urine Ketones Urine Blood Urine Nitrite Urine Bilirubin Urine Urobilinogen Ur Leukocyte Esterase Urine Microscopic RBC Urine Microscopic WBC Ur Squamous Epith Cells Urine Opiates Screen Negative Ur Oxycodone Screen Negative Urine Methadone Screen Negative Ur Propoxyphene Screen Negative Ur Barbiturates Screen Negative U Tricyclic Antidepress Negative Ur Phencyclidine Scrn Negative Ur Amphetamine Screen Negative U Methamphetamines Scrn Negative U Benzodiazepines Scrn Negative Urine Cocaine Screen Positive U Cannabinoids Screen Negative 10/10/18 12:35 WBC RBC Hgb Hct MCV MCH MCHC RDW Coeff of Carlita Plt Count Immature Gran % (Auto) Neut % (Auto) Lymph % (Auto) [place] % (Auto) Eos % (Auto) Baso % (Auto) Immature Gran # (Auto) Neut # (Auto) Lymph # (Auto) [place] # (Auto) Eos # (Auto) Baso # (Auto) Sodium Potassium Chloride Carbon Dioxide Anion Gap BUN Creatinine Estimated GFR (MDRD) BUN/Creatinine Ratio Glucose Calcium Iron TIBC % Saturation Total Bilirubin AST ALT Alkaline Phosphatase Troponin I Serum Total Protein Total Protein Albumin Albumin % (PEP) Globulin Globulin (PEP) Albumin/Globulin Ratio Qdnua-2-Lmdcfdjte Skrmg-1-Ssapkdpzg Beta Globulins Gamma Globulins M-Alphonso PEP Note Vitamin B12 Folate Urine Color Yellow Urine Clarity Clear Urine pH 7.0 Ur Specific [place] 1.020 Urine Protein 3+ Urine Glucose (UA) Trace Urine Ketones Negative Urine Blood Trace-lysed Urine Nitrite Negative Urine Bilirubin Negative Urine Urobilinogen 0.2 Ur Leukocyte Esterase Negative Urine Microscopic RBC 0-2 Urine Microscopic WBC 0-2 Ur Squamous Epith Cells 0-2 Urine Opiates Screen Ur Oxycodone Screen Urine Methadone Screen Ur Propoxyphene Screen Ur Barbiturates Screen U Tricyclic Antidepress Ur Phencyclidine Scrn Ur Amphetamine Screen U Methamphetamines Scrn U Benzodiazepines Scrn Urine Cocaine Screen U Cannabinoids Screen Orders Category Date Time Status EKG-(ED ONLY) Stat CARDIO 10/10/18 10:04 Completed CBC W/ AUTO DIFF Stat LAB 10/10/18 10:24 Completed CMP [COMPREHENSIVE METABOLIC PANEL] Stat LAB 10/10/18 10:24 Completed FOLATE Stat LAB 10/10/18 10:24 Completed IRON AND TIBC Stat LAB 10/10/18 10:24 Completed SERUM PROTEIN ELECTROPHORESIS Stat LAB 10/10/18 10:24 Completed TROPONIN I Stat LAB 10/10/18 10:24 Completed UA [URINALYSIS C & S IF INDICATED] Stat LAB 10/10/18 12:35 Completed URINE DRUG SCREEN (RAPID FOR ED) [DRUG SCREEN, URINE, LAB 10/10/18 12:35 Completed RAPID] Stat VITAMIN B12 Stat LAB 10/10/18 10:24 Completed Clonidine HCl [Catapres] MEDS 10/10/18 10:01 Discontinued 0.1 mg PO ONCE STA Medications Discontinued Medications Generic Name Dose Route Start Last Admin Trade Name Freq PRN Reason Stop Dose Admin Clonidine 0.1 mg 10/10/18 10:01 10/10/18 10:19 Catapres PO 10/10/18 10:02 0.1 mg ONCE STA Administration Vital Signs: Temp Pulse Resp BP Pulse Ox 10/10/18 12:33 97.9 F 66 16 179/99 H 99 10/10/18 09:09 97.3 F L 78 20 214/114 H 94 L JASON Risk Score JASON Risk Score: Risk Score Odds of by 30D 0 0.1 (0.1-0.2) 1 0.3 (0.2-0.3) 2 0.4 (0.3-0.5) 3 0.7 (0.6-0.9) 4 1.2 (1.0-1.5) 5 2.2 (1.9-2.6) 6 3.0 (2.5-3.6) 7 4.8 (3.8-6.1) Departure - Departure Time of Disposition: 12:30 Disposition: HOME SELF-CARE Discharge Problem: Hypertensive urgency, Kidney disease, chronic, end stage on dialysis, IgG monoclonal gammopathy Anemia Qualifiers: Anemia type: unspecified type Qualified Code(s): D64.9 - Anemia, unspecified Instructions: Chronic Kidney Disease (ED), Hypertension (ED), Anemia (ED), End Stage Kidney Disease (ED) Condition: Fair Pt referred to PMD for follow-up: Yes (See Dr Woodard in follow up ) IPMP verified?: No Additional Instructions: Stay well hydrated Stay on predcribed meds Rx Clonidine twice daily Have CBC /CMP repeated at dr Martinez office i n next week Call and reschedule apt with Dr Washburn oncology/hematology Prescriptions: Hydrocodone Bit/Acetaminophen [[place] 5-325] 1 each PO Q6HR PRN #15 tablet PRN Reason: Severe Back Pain Clonidine HCl 0.1 mg PO BID #30 tablet Allergies/Adverse Reactions: Allergies lisinopril Allergy (Severe, Verified 10/12/18 19:29) Face swelling Patient to notify drugstore enalaprilat [From Vasotec] Adverse Reaction (Mild, Verified 10/12/18 19:29) Itching Patient experienced facial flushing and itching. Home Medications: Ambulatory Orders Hydralazine HCl [Apresoline] 50 mg PO Q08H #90 tablet 08/26/18 Losartan Potassium [Cozaar] 50 mg PO BID 08/26/18 Clonidine HCl 0.1 mg PO BID #30 tablet 10/10/18 Hydralazine HCl 25 mg PO BID 10/10/18 Hydrocodone Bit/Acetaminophen [[place] 5-325] 1 each PO Q6HR PRN #15 tablet Pnv No.95/Ferrous Fum/Folic AC [ Vitamin Tablet] 1 each PO DAILY Tamsulosin HCl [Flomax] 0.4 mg PO DAILY 10/10/18 Additional Information: explained findings a to patient along with previous Urine protein electrophoresis.Significiance of result concerning for a monoclonal gammopathy. States was advised to see Oncologist/Certified Medical Aide Dr Washburn in [place] but states transportation is difficult since her only clinic day is on Sunday. Discussed transferring patient with Dr Woodard due to anemia and HTN. Does not feel is hospitalization is necessary, advised out patient treatment of hypertension is appropriates as well being seen by hematology. Discussed additional alternative tx at other locations.
[2018-10-10 12:34] VITALS: BP 179/99; TEMP 97.9
== END 2018-10-10 13:37 | disposition home or self-care (01) ==
LOC: ED 09:07
DX: I16.0 Hypertensive urgency (principal); I12.0 Hypertensive chronic kidney disease with stage 5 chronic kidney disease or end stage renal disease; N18.6 End stage renal disease; Z99.2 Dependence on renal dialysis; D63.1 Anemia in chronic kidney disease; D47.2 Monoclonal gammopathy; M54.5 Low back pain; G89.29 Other chronic pain; R42 Dizziness and giddiness; Z79.899 Other long term (current) drug therapy; E78.5 Hyperlipidemia, unspecified
CPT/HCPCS: 36415; 80053; 80306; 81001; 82607; 82746; 83540; 83550; 84165; 84484; 85025; 93005; 93010; 99284

== ENCOUNTER 2018-10-12 19:10 | Emergency (ER) ==
[2018-10-12 19:31] VITALS: TEMP 99.2
[2018-10-12 19:41] VITALS: BMI 21.7
--- NOTE | 2018-10-12 20:24 | ED.PDOC ---
General ED Provider: Dr. KAYLA LIZARRAGA-ER Chief Complaint: Weakness Stated Complaint: im weak and tired and my blood count is low Time Seen by Physician: 19:15 Mode of Arrival: Wheelchair Information Source: Patient Exam Limitations: No limitations Nursing and Triage Documentation Reviewed and Agree: Yes Does patient meet sepsis criteria?: No System Inflammatory Response Syndrome: Not Applicable Sepsis Protocol: For patient's 13 years and over: Temp is 96.8 and below OR 101 and greater Pulse >90 BPM Resp >20/minute Acutely Altered Mental Status Are patient's symptoms suggestive of a new infection, such as: -Pneumonia -Skin, Soft Tissue -Endocarditis -UTI -Bone, Joint Infection -Implantable Device -Acute Abdominal Infection -Wound Infection -Meningitis -Blood Stream Catheter Infection -Unknown Miscellaneous Complaint Exam - Complex/Multi-System Complaint/Exam Onset/Duration: several days Symptoms Are: Still present Initial Severity: Mild Current Severity: Moderate Location of Pain: no pain Associated Signs and Symptoms: Reports: Dizziness, Weakness, Short of air. Denies: Decreased responsiveness, Confusion, Agitation, Melena Recent Echo/LV Function: No Respiratory Distress: None JVD Present: No Tachypnea Present: No Stridor Present: No Abdominal Findings: Present: Normal findings Glascow Coma Scale (see protocol): 15 Meningeal Signs Positive: No Focal Weakness: Present: None Focal Sensory Loss: Present: None Gait: Normal Gag Reflex Present: Yes Babinski Sign: Negative Right, Negative Left Skin Findings: Present: Normal findings Joint Swelling Present: No In-Dwelling Device Present: No Review of Systems - Review Of Systems Constitutional: Reports: Weakness Eyes: Reports: No symptoms Ears, Nose, Mouth, Throat: Reports: No symptoms Respiratory: Reports: Short of air Cardiac: Reports: No symptoms GI: Reports: No symptoms : Reports: No symptoms Musculoskeletal: Reports: No symptoms Skin: Reports: No symptoms Neurological: Reports: No symptoms Endocrine: Reports: No symptoms Hematologic/Lymphatic: Reports: No symptoms All Other Systems: Reviewed and Negative Past Medical History - Past Medical History Previously Healthy: Yes Endocrine: Reports: Dyslipidemia Cardiovascular: Reports: Hypertension Respiratory: Reports: COPD Hematological: Reports: None, Anemia Gastrointestinal: Reports: None, GERD, Liver Genitourinary: Reports: None, CKD, Other Neuro/Psych: Reports: None Musculoskeletal: Reports: Arthritis, Joint Pain Cancer: Reports: None - Surgical History General Surgical History: Reports: Orthopedic ( LEFT HIP, BILATERAL FOOT SURGERY ,NECK SURG FUSION 1972, LEFT ARM SURG), Back Surgery (CS FUSION), Other (BOTH FEET; LEFT HIP SURG) - Family History Family History: Reports: Unknown - Social History Smoking Status: Former smoker Hx Substance Use: No Alcohol Screening: None - Immunizations Tetanus Shot up to Date: No Influenza Vaccine within 12 Months: No Pneumococcal Vaccine up to Date: No Physical Exam - Physical Exam Appearance: Well-appearing, No pain distress, Well-nourished Eyes: REINA, EOMI, Conjunctiva clear ENT: Ears normal, Nose normal, Oropharynx normal Neck: Supple Respiratory: Airway patent Cardiovascular: RRR, Pulses normal, No rub, No murmur GI/: Soft, Nontender, No masses, Bowel sounds normal, No Organomegaly Musculoskeletal: Normal strength, ROM intact, No edema, No calf tenderness Skin: Warm, Dry, Normal color Neurological: Sensation intact, Motor intact, Reflexes intact, Cranial nerves intact, Alert, Oriented Psychiatric: Affect appropriate, Mood appropriate Interpretation - Radiology Interpretation Radiology Interpretation By: ED Physician Radiology Results: Negative Exam Interpreted: Portable CXR - EKG Interpretation Time of EKG #1: 20:24 Rate: Normal Rhythm: Sinus Ectopy: None [place]: NL ST Segment: Normal Interpretation: nsr Critical Care Note - Critical Care Note Total Time (mins): 0 Course - Course Hematology/Chemistry: 10/12/18 19:50 10/12/18 19:50 Orders, Labs, Meds: Lab Review 10/12/18 10/12/18 10/12/18 19:50 19:50 19:50 WBC 6.41 RBC 2.52 L Hgb 8.0 L Hct 24.9 L MCV 98.8 H MCH 31.7 H MCHC 32.1 RDW Coeff of Carlita 12.3 Plt Count 135 L Immature Gran % (Auto) 0.2 Neut % (Auto) 64.3 Lymph % (Auto) 27.9 [place] % (Auto) 6.2 Eos % (Auto) 1.2 Baso % (Auto) 0.2 Immature Gran # (Auto) 0.0 Neut # (Auto) 4.1 Lymph # (Auto) 1.8 [place] # (Auto) 0.4 Eos # (Auto) 0.1 Baso # (Auto) 0.0 Sodium 141.7 Potassium 4.97 Chloride 111.9 H Carbon Dioxide 20.7 L Anion Gap 14.07 BUN 40.1 H Creatinine 5.24 H* D Estimated GFR (MDRD) 14.00 BUN/Creatinine Ratio 7.65 Glucose 104.4 Calcium 9.60 Iron 43.4 L TIBC Pending % Saturation Pending Total Bilirubin 0.37 AST 19.5 ALT 14.9 Alkaline Phosphatase 74.3 Total Creatine Kinase 130.1 CK-MB (CK-2) Pending CK-MB (CK-2) % Pending Troponin I 0.024 Total Protein 6.65 Albumin 3.69 Globulin 2.96 Albumin/Globulin Ratio 1.24 Orders Category Date Time Status EKG-(ED ONLY) Stat CARDIO 10/12/18 19:36 Completed ED PRESS MAINTAINER APPLIED .ONCE EMERGENCY 10/12/18 19:36 Active CBC W/ AUTO DIFF Stat LAB 10/12/18 19:50 Completed COMPREHENSIVE METABOLIC PANEL Stat LAB 10/12/18 19:50 Results CREATINE KINASE Stat LAB 10/12/18 19:50 Results FERRITIN Stat LAB 10/12/18 19:50 Received IRON AND TIBC Stat LAB 10/12/18 19:50 Results PROTEIN IMMUNOELECTROPHORESIS Stat LAB 10/12/18 19:50 Received TROPONIN I Stat LAB 10/12/18 19:50 Results CXR [CHEST, 1V AP ONLY] Stat RADS 10/12/18 19:37 Taken Vital Signs: Temp Pulse Resp BP Pulse Ox 10/12/18 19:11 99.2 F 96 H 20 134/78 97 Departure - Departure Time of Disposition: 20:24 Disposition: TSF SHORT-TRM HOSP Discharge Problem: Anemia Qualifiers: Anemia type: unspecified type Qualified Code(s): D64.9 - Anemia, unspecified Instructions: Anemia (ED) Condition: Fair Pt referred to PMD for follow-up: Yes IPMP verified?: No Allergies/Adverse Reactions: Allergies lisinopril Allergy (Severe, Verified 10/12/18 19:29) Face swelling Patient to notify drugstore enalaprilat [From Vasotec] Adverse Reaction (Mild, Verified 10/12/18 19:29) Itching Patient experienced facial flushing and itching. Home Medications: Ambulatory Orders Hydralazine HCl [Apresoline] 50 mg PO Q08H #90 tablet 08/26/18 Losartan Potassium [Cozaar] 50 mg PO BID 08/26/18 Clonidine HCl 0.1 mg PO BID #30 tablet 10/10/18 Hydralazine HCl 25 mg PO BID 10/10/18 Hydrocodone Bit/Acetaminophen [[place] 5-325] 1 each PO Q6HR PRN #15 tablet Pnv No.95/Ferrous Fum/Folic AC [ Vitamin Tablet] 1 each PO DAILY Tamsulosin HCl [Flomax] 0.4 mg PO DAILY 10/10/18 Transfer Form Completed: Yes Disposition Discussed With: Patient
[2018-10-12 20:38] VITALS: BP 170/96
[2018-10-12] MEDS: NORCO 5-325 PO STA (20:49)
--- NOTE | 2018-10-12 22:23 | DI ---
Exam: Single view of the chest. Comparison: 08/07/2018. REASON FOR EXAM: Dyspnea. FINDINGS: No pneumothorax, pleural effusion, or focal airspace consolidation. 1 cm nodule in the right lower lobe. The cardiac silhouette is not enlarged. IMPRESSION: 1 cm nodule right lower lobe. If clinical concern exists, follow-up imaging versus CT imaging may be performed to document stability. Otherwise, no acute findings are seen within the thorax.
== END 2018-10-12 21:35 | disposition short-term general hospital (02) ==
LOC: ED 19:10
DX: D64.9 Anemia, unspecified (principal); R53.1 Weakness; R42 Dizziness and giddiness; R06.02 Shortness of breath; I10 Essential (primary) hypertension; N18.9 Chronic kidney disease, unspecified; E78.5 Hyperlipidemia, unspecified; Z79.899 Other long term (current) drug therapy
CPT/HCPCS: 36415; 80053; 82550; 82553; 82728; 83540; 83550; 84484; 85025; 86320; 93005; 93010; 99285

== ENCOUNTER 2019-08-08 07:41 | Inpatient (IN) ==
[2019-08-08] MEDS ORDERED: URO-JET MUCOUSMEMB STA (07:59)
[2019-08-08] MEDS ORDERED: CATAPRES PO STA (07:59)
--- NOTE | 2019-08-08 08:05 | ED.PDOC ---
General ED Provider: Dr. DINO YOUNGBLOOD MD Chief Complaint: Urinary Problem Stated Complaint: mild to mod burning urination and decreased urination for one day, hx peritoneal dialysis, no fever, no NV, noncompliant w/ blood pressure meds, hx problems ambulating, uses a WC Time Seen by Physician: 08:02 Mode of Arrival: Wheelchair Information Source: Patient Primary Care Provider: EMMANUEL LUNA Nursing and Triage Documentation Reviewed and Agree: Yes Does patient meet sepsis criteria?: No System Inflammatory Response Syndrome: Not Applicable Sepsis Protocol: For patient's 13 years and over: Temp is 96.8 and below OR 101 and greater Pulse >90 BPM Resp >20/minute Acutely Altered Mental Status Are patient's symptoms suggestive of a new infection, such as: -Pneumonia -Skin, Soft Tissue -Endocarditis -UTI -Bone, Joint Infection -Implantable Device -Acute Abdominal Infection -Wound Infection -Meningitis -Blood Stream Catheter Infection -Unknown Complaint Exam Complaint/Exam Patient Complains of: Reports Dysuria Onset/Duration: one day Symptoms Are: Still present Timing: Intermittent Initial Severity: Mild Current Severity: Moderate Location of Pain: Reports Suprapubic Character: Reports Burning Aggravating: Reports Straining Alleviating: Reports None Associated Signs and Symptoms: Reports Dysuria and Decreased urine output; Denies Back pain and Fever Review of Systems Review Of Systems Constitutional: Denies Fever Eyes: Denies Drainage Ears, Nose, Mouth, Throat: Denies Throat pain Respiratory: Denies Short of air Cardiac: Denies Chest pain GI: Denies Abdominal pain : Reports Burning Musculoskeletal: Denies Back pain Skin: Denies Rash Neurological: Denies Cognitive dysfunction All Other Systems: Other [facility] Medical History (Updated 08/08/19 @ 13:10 by [employer]) Anemia in chronic kidney disease, on chronic dialysis Arthritis Back pain Chronic liver disease Chronic renal failure, stage 4 (severe) Hypertension Peritoneal dialysis catheter in place UTI (urinary tract infection) Family History (Updated 08/08/19 @ 13:14 by [employer]) Mother Hypertension Diabetes Rheumatoid arthritis FATHER No problems noted. Social History (Updated 08/08/19 @ 13:16 by [employer]) Smoking and tobacco status: Former smoker How long ago did patient quit smoking: quit 10 years ago Alcohol intake: former Substance use type: does not use Caregiver/support person: Yes Household members: family History of recent travel: No Physical Exam Physical Exam Appearance: Reports No pain distress Ill-appearing: None Pain Distress: None Eyes: Reports Conjunctiva clear Neck: Supple Respiratory: Reports Airway patent, Breath sounds clear and Breath sounds equal Cardiovascular: Reports RRR GI/: Reports Soft and Nontender Skin: Reports Warm and Dry Neurological: Reports Alert and Oriented Psychiatric: Reports Affect appropriate Re-Evaluation Re-Evaluation Time of Re-Evaluation: 10:22 Status: Improved Vital Signs Stable: Yes Appearance: NAD Neuro: Alert and Oriented X3 Additional Comments: admit d/w Lenore, for htn, renal failure, uti, metabolic acidosis Critical Care Note Critical Care Note Total Time (mins): 0 Course Course Hematology/Chemistry: 08/08/19 08:10 08/08/19 08:10 Orders, Labs, Meds: Lab Review 08/08/19 08/08/19 08/08/19 08:10 08:10 08:10 WBC 9.62 RBC 2.74 L Hgb 8.6 L Hct 26.8 L MCV 97.8 H MCH 31.4 H MCHC 32.1 RDW Coeff of Carlita 13.2 Plt Count 140 Immature Gran % (Auto) 0.3 Neut % (Auto) 72.5 Lymph % (Auto) 16.5 [place] % (Auto) 8.8 Eos % (Auto) 1.7 Baso % (Auto) 0.2 Immature Gran # (Auto) 0.0 Neut # (Auto) 7.0 H Lymph # (Auto) 1.6 [place] # (Auto) 0.9 Eos # (Auto) 0.2 Baso # (Auto) 0.0 Sodium 142.2 Potassium 4.34 Chloride 111.2 H Carbon Dioxide 17.6 L Anion Gap 17.74 BUN 53.3 H Creatinine 10.29 H* Estimated GFR (MDRD) 6.00 BUN/Creatinine Ratio 5.17 Glucose 104.4 Calcium 9.25 Phosphorus 5.14 H Magnesium 1.44 L Total Bilirubin 0.37 AST 29.5 ALT 12.8 Alkaline Phosphatase 84.6 Total Protein 7.77 Albumin 3.92 Globulin 3.85 Albumin/Globulin Ratio 1.01 Urine Color Urine Clarity Urine pH Ur Specific [place] Urine Protein Urine Glucose (UA) Urine Ketones Urine Blood Urine Nitrite Urine Bilirubin Urine Urobilinogen Ur Leukocyte Esterase Urine Microscopic RBC Urine Microscopic WBC Ur Squamous Epith Cells Urine Bacteria 08/08/19 08:27 WBC RBC Hgb Hct MCV MCH MCHC RDW Coeff of Carlita Plt Count Immature Gran % (Auto) Neut % (Auto) Lymph % (Auto) [place] % (Auto) Eos % (Auto) Baso % (Auto) Immature Gran # (Auto) Neut # (Auto) Lymph # (Auto) [place] # (Auto) Eos # (Auto) Baso # (Auto) Sodium Potassium Chloride Carbon Dioxide Anion Gap BUN Creatinine Estimated GFR (MDRD) BUN/Creatinine Ratio Glucose Calcium Phosphorus Magnesium Total Bilirubin AST ALT Alkaline Phosphatase Total Protein Albumin Globulin Albumin/Globulin Ratio Urine Color Yellow Urine Clarity Turbid Urine pH 6.0 Ur Specific [place] 1.025 Urine Protein 3+ H Urine Glucose (UA) Negative Urine Ketones Negative Urine Blood 3+ H Urine Nitrite Negative Urine Bilirubin Negative Urine Urobilinogen 0.2 Ur Leukocyte Esterase 1+ H Urine Microscopic RBC 10-20 Urine Microscopic WBC Tntc Ur Squamous Epith Cells Not present Urine Bacteria 4+ Orders Category Date Time Status ADMIT PATIENT INPATIENT .TO [facility] (MONITORED BED) ADMISSION 08/08/19 10:22 Active ACTIVITY .BR with BRP CARE 08/08/19 10:24 Active INTAKE & OUTPUT Q8HR CARE 08/08/19 10:25 Active TELEMETRY MONITORING TELE CARE 08/08/19 10:23 Active VITAL SIGNS Q4HR CARE 08/08/19 10:25 Active ED CATHETER INSERTION AND CARE .ONCE EMERGENCY 08/08/19 07:59 Active CBC W/ AUTO DIFF Stat LAB 08/08/19 08:10 Completed COMPREHENSIVE METABOLIC PANEL Stat LAB 08/08/19 08:10 Completed URINALYSIS C & S IF INDICATED Stat LAB 08/08/19 08:27 Completed URINE CULTURE Stat LAB 08/08/19 08:27 Received Ceftriaxone/D5w 1 gm Premix [Rocephin 1 gm/50 ml D5w] MEDS 08/08/19 10:19 Discontinued 1 gm in 50 ml IV ONCE Clonidine HCl [Catapres] MEDS 08/08/19 07:59 Discontinued 0.1 mg PO ONCE STA Lidocaine (Uro-Jet) [Uro-Jet] MEDS 08/08/19 07:59 Discontinued 10 ml MUCOUSMEMB ONCE STA Metoprolol Tartrate [Lopressor] MEDS 08/08/19 10:25 Discontinued 5 mg IVP ONCE STA RESUSCITATION STATUS Routine OTHERS 08/08/19 10:24 Ordered Medications Generic Name Dose Route Start Last Admin Trade Name Raissa PRN Reason Stop Dose Admin Acetaminophen 500 mg 08/08/19 13:00 Tylenol PO Q6H PRN Pain Hydrocodone Bitart/Acetaminophen 1 tab 08/08/19 12:20 08/08/19 16:32 [place] 5-325 PO 1 tab Q6HR PRN Administration Pain Hydralazine HCl 100 mg 08/08/19 12:30 08/08/19 13:18 Apresoline PO Not Given Q8HR MECCA Sodium Chloride 1,000 mls @ 30 mls/hr 08/08/19 15:30 08/08/19 16:32 Sodium Chloride IV 30 mls/hr .[id number] MECCA Administration CEFTRIAXONE/D5W 1 GM PREMIX 1 gm in 50 mls @ 75 mls/hr 08/09/19 09:00 Rocephin 1 Gm/50 Ml D5w IV 08/12/19 08:59 DAILY MECCA Methocarbamol 500 mg 08/08/19 12:30 08/08/19 13:17 Robaxin PO 500 mg BID MECCA Administration Metoprolol Tartrate 50 mg 08/08/19 12:30 08/08/19 13:17 Lopressor PO 50 mg BID MECCA Administration Non-Formulary Medication 1 tab 08/08/19 12:30 08/08/19 13:17 Multi+Dha PO 1 tab DAILY MECCA Administration Tamsulosin HCl 0.4 mg 08/08/19 12:30 08/08/19 13:17 Flomax PO 0.4 mg DAILY MECCA Administration Discontinued Medications Generic Name Dose Route Start Last Admin Trade Name Raissa PRN Reason Stop Dose Admin Acetaminophen 500 mg 08/08/19 12:20 Tylenol PO Q6H PRN Pain Clonidine 0.1 mg 08/08/19 07:59 08/08/19 08:11 Catapres PO 08/08/19 08:00 0.1 mg ONCE STA Administration CEFTRIAXONE/D5W 1 GM PREMIX 1 gm in 50 mls @ 75 mls/hr 08/08/19 10:19 10:35 Rocephin 1 Gm/50 Ml D5w IV 08/08/19 10:58 75 mls/hr ONCE STA Administration Lidocaine HCl 10 ml 08/08/19 07:59 08/08/19 08:12 Uro-Jet MUCOUSMEMB 08/08/19 08:00 10 ml ONCE STA Administration Metoprolol Tartrate 5 mg 08/08/19 10:25 08/08/19 10:34 Lopressor IVP 08/08/19 10:26 5 mg ONCE STA Administration Vital Signs: Temp Pulse Resp BP Pulse Ox 08/08/19 07:41 96.9 F L 109 H 20 225/136 H 97 Discharge Plan Discharge Patient Disposition: ADMITTED INPATIENT Discharge Problem: Acute UTI Hypertension Qualifiers: Hypertension type: unspecified Qualified Code(s): I10 - Essential (primary) h ypertension Renal failure Qualifiers: Renal failure chronicity: acute on chronic Acute renal failure type: unspecifie d Chronic kidney disease stage: unspecified stage Qualified Code(s): N17.9 - Acute kidney failure, unspecified ED Provider: DINO YOUNGBLOOD Condition: Stable Discharge Date/Time: 08/08/19 11:07
[2019-08-08 08:22] LABS: HEMATOCRIT 26.8 % (42.0-52.0)
[2019-08-08] MEDS ORDERED: ROCEPHIN 1 GM/50 ML D5W 1 GM/50 ML BAG IV STA (10:19)
[2019-08-08] MEDS ORDERED: TYLENOL PO PRN ×3 (10:24→13:00)
[2019-08-08] MEDS ORDERED: LOPRESSOR IVP STA (10:25)
[2019-08-08 11:32] VITALS: BMI 20.4
[2019-08-08] MEDS: APRESOLINE PO SCH ×3 (13:17→20:02)
[2019-08-08] MEDS: PRENATAL MULTI PO SCH (13:17)
[2019-08-08] MEDS: DHA PO SCH (13:17)
[2019-08-08] MEDS: FLOMAX PO SCH (13:17)
[2019-08-08] MEDS: LOPRESSOR PO SCH ×2 (13:17→20:02)
[2019-08-08] MEDS: ROBAXIN PO SCH ×2 (13:17→20:02)
--- NOTE | 2019-08-08 13:44 | PCM ---
Chief Complaint Chief Complaint: c/o burning on urination and not urinating as much as usual at home over the past day or so; not feeling well. having cramps, feels cold, missed his dialysis History of Present Illness History of Present Illness: Mr. Lynch is a 64 year old male who presents to emergency with complaint of having burning on urination and feeling he is not urinating as he should, not feeling well, body cramps, and having missed performing his peritoneal dialysis x 2 days. In ED pt found to have elevated blood pressure 225/136, bicarb 17, BUN 53 Cr 10 GFR 6.0; wbc 9.62, H/H 8.6/26.8 PLT [id number]; Na 142 K 4.34 Cl 111.2 CO2 17.6 anion gap 17.74; UA positive leukocytes 4+bacteria +blood wbc TNTC nitrite neg. Staley catheter is placed. Nurse reported some difficulty with staley insertion. Pt states has been told he has an enlarged prostate. Pt is given clonidine 0.1mg po for his blood pressure with moderate results but pressure rebounds. Pt is admitted for UTI, hypertensive urgency, metabolic acidosis, and having not performed his home peritoneal dialysis x 2 days. Pt is admitted as inpatient to the Hospitalist service for continued care. Pt is interviewed at the bedside in the emergency department. No family present. Pt is awake and alert. Pt gives pmhx of HTN, CHF, anemia, chronic kidney diseased diagnosed a year ago and on peritoneal dialysis daily, previous cervical fusion with hx chronic pain. Pt states he was not at home for 2 days and didn't take his peritoneal dialysis equipment with him as he was not planning to stay that long. Pt states he usually uses his dialysis machine at home daily. He states he usually attaches himself to the machine at night at bedtime as it takes about 8 hours to complete. Pt states he hasnt taken his blood pressure medication or other medications this morning prior to coming to the emergency department. Pt states he has anemia and has received blood in the past. The last transfusion was about a month ago. States he was to have some tests done to assess his anemia to include a possible bone marrow biopsy, but, appointments were cancelled due to the covid 19 pandemic. Pt c/o current "cramps or spasms" in his legs. States he gets spasms often in his legs, back, and arms. States he takes flexeril for this at home. Pt is not sure of all of the names of his medications. He will call his daughter to bring in his meds and his dialysis machine/materials. It is explain ed specifically to pt that we do not perform dialysis here. If he cannot take care of his own dialysis he will need to be transferred to another hospital. He states he is capable and willing to perform his own dialysis when his daughter brings his supplies to hospital. Review of records show that pt has history of macrocytic anemia with decreased total iron and TIBC with normal ferritin, B12 and folate level. Records also reveal hx of Hep C and CHF, unknown if with or without preserved ejection fraction. Pt has an ECHO EF 69% with boderline LVH, normal valves, and normal LV contractility done 08/17/2014. Review of Systems Constitutional: Reports weakness; Denies fever, chills, sweats, fatigue, loss of appetite and other Eyes: Denies blurred vision, double-vision, discharge, itching, pain, redness, photophobia and other Throat: Denies pain, swelling, voice change and other Mouth: Denies bleeding, pain, swelling and other Respiratory: Reports shortness of air; Denies cough, wheeze, hemoptysis, pain with breathing and other Cardiovascular: Reports edema; Denies chest pain, left arm pain, diaphoresis, PND, orthopnea, palpitations, syncope and other Gastrointestinal: Denies abdominal pain, nausea, vomiting, diarrhea, melena, hematemesis, hematochezia, dysphagia, constipation and other Genitourinary: Reports dysuria, hematuria and frequency; Denies incontinence, flank pain, penile discharge, testicular pain, testicular swelling and other Neurological: Reports weakness and problems with walking (related to previous neck surgery) Musculoskeletal: Denies pain, swelling in joints and other Skin: Denies rash, pruritus, lacerations, wounds, bruising and other Immunology: Denies hives, itching, frequent infections, difficulty healing and other Endocrine: Reports cold intolerance Psychiatric: Reports sleeplessness Habits: Denies tobacco use, substance use, alcohol use and other Allergies Allergies Allergy/AdvReac Type Severity Reaction Status Date / Time lisinopril Allergy Severe Face Verified 08/08/19 07:51 swelling enalaprilat [From Vasotec] AdvReac Mild Itching Verified 08/08/19 07:51 [facility] Medical History (Updated 08/08/19 @ 13:10 by [employer]) Anemia in chronic kidney disease, on chronic dialysis Arthritis Back pain Chronic liver disease Chronic renal failure, stage 4 (severe) Hypertension Peritoneal dialysis catheter in place UTI (urinary tract infection) Surgical History History of dental surgery History of musculoskeletal system surgery History of neurologic surgery Family History (Updated 08/08/19 @ 13:14 by [employer]) Mother Hypertension Diabetes Rheumatoid arthritis FATHER No problems noted. Social History (Updated 08/08/19 @ 13:16 by [employer]) Smoking and tobacco status: Former smoker How long ago did patient quit smoking: quit 10 years ago Alcohol intake: former Substance use type: does not use Caregiver/support person: Yes Household members: family History of recent travel: No Medications Medications: Medications Generic Name Dose Route Start Last Admin Trade Name Freq PRN Reason Stop Dose Admin Acetaminophen 500 mg 08/08/19 13:00 Tylenol PO Q6H PRN Pain Hydrocodone Bitart/Acetaminophen 1 tab 08/08/19 12:20 [place] 5-325 PO Q6HR PRN Pain Hydralazine HCl 100 mg 08/08/19 12:30 Apresoline PO Q08H MECCA Methocarbamol 500 mg 08/08/19 12:30 Robaxin PO BID MECCA Metoprolol Tartrate 50 mg 08/08/19 12:30 Lopressor PO BID [facility] Non-Formulary Medication 1 tab 08/08/19 12:30 Multi+Dha PO DAILY MECCA Tamsulosin HCl 0.4 mg 08/08/19 12:30 Flomax PO DAILY [facility] Body Composition Height: 5 ft 9 in Weight: 138 lb 7.205 oz Body Mass Index (BMI): 20.4 Vital Signs Temperature: 98.1 F Pulse Rate: 91 Respiratory Rate: 18 Blood Pressure: 225/136 O2 Sat by Pulse Oximetry: 96 Physical Examination Appearance: Reports Thin Ill-appearing: Mild Pain Distress: Moderate Eyes: Reports REINA, EOMI and Conjunctiva clear ENT: Reports Ears normal, Nose normal and Oropharynx normal; Denies TMs Occluded, Rhinorrhea, Epistaxis, Erythema, Exudate and Dry mucosa Neck: Supple Respiratory: Reports Airway patent, Breath sounds clear, Breath sounds equal and Respirations nonlabored Cardiovascular: Reports RRR and Pulses normal GI/: Reports Soft, Nontender, Bowel sounds normal and No Organomegaly Musculoskeletal: Reports ROM intact and Edema (1+ pitting bilateral feet; not ankles though) Skin: Reports Warm, Dry and Normal color Neurological: Reports Sensation intact, Motor intact, Alert and Oriented Psychiatric: Reports Affect appropriate Lab/Tests/Diagnostic Imaging Lab/Tests/Diagnostic Imaging: Lab Review 08/08/19 08/08/19 08/08/19 08:10 08:10 08:10 WBC 9.62 RBC 2.74 L Hgb 8.6 L Hct 26.8 L MCV 97.8 H MCH 31.4 H MCHC 32.1 RDW Coeff of Carlita 13.2 Plt Count 140 Immature Gran % (Auto) 0.3 Neut % (Auto) 72.5 Lymph % (Auto) 16.5 [place] % (Auto) 8.8 Eos % (Auto) 1.7 Baso % (Auto) 0.2 Immature Gran # (Auto) 0.0 Neut # (Auto) 7.0 H Lymph # (Auto) 1.6 [place] # (Auto) 0.9 Eos # (Auto) 0.2 Baso # (Auto) 0.0 Sodium 142.2 Potassium 4.34 Chloride 111.2 H Carbon Dioxide 17.6 L Anion Gap 17.74 BUN 53.3 H Creatinine 10.29 H* Estimated GFR (MDRD) 6.00 BUN/Creatinine Ratio 5.17 Glucose 104.4 Calcium 9.25 Phosphorus 5.14 H Magnesium 1.44 L Total Bilirubin 0.37 AST 29.5 ALT 12.8 Alkaline Phosphatase 84.6 Total Protein 7.77 Albumin 3.92 Globulin 3.85 Albumin/Globulin Ratio 1.01 Urine Color Urine Clarity Urine pH Ur Specific [place] Urine Protein Urine Glucose (UA) Urine Ketones Urine Blood Urine Nitrite Urine Bilirubin Urine Urobilinogen Ur Leukocyte Esterase Urine Microscopic RBC Urine Microscopic WBC Ur Squamous Epith Cells Urine Bacteria 08/08/19 08:27 WBC RBC Hgb Hct MCV MCH MCHC RDW Coeff of Carlita Plt Count Immature Gran % (Auto) Neut % (Auto) Lymph % (Auto) [place] % (Auto) Eos % (Auto) Baso % (Auto) Immature Gran # (Auto) Neut # (Auto) Lymph # (Auto) [place] # (Auto) Eos # (Auto) Baso # (Auto) Sodium Potassium Chloride Carbon Dioxide Anion Gap BUN Creatinine Estimated GFR (MDRD) BUN/Creatinine Ratio Glucose Calcium Phosphorus Magnesium Total Bilirubin AST ALT Alkaline Phosphatase Total Protein Albumin Globulin Albumin/Globulin Ratio Urine Color Yellow Urine Clarity Turbid Urine pH 6.0 Ur Specific [place] 1.025 Urine Protein 3+ H Urine Glucose (UA) Negative Urine Ketones Negative Urine Blood 3+ H Urine Nitrite Negative Urine Bilirubin Negative Urine Urobilinogen 0.2 Ur Leukocyte Esterase 1+ H Urine Microscopic RBC 10-20 Urine Microscopic WBC Tntc Ur Squamous Epith Cells Not present Urine Bacteria 4+ Orders Category Date Time Status ADMIT PATIENT INPATIENT .TO [facility] (MONITORED BED) ADMISSION 08/08/19 10:22 Active ACTIVITY .BR with BRP CARE 08/08/19 10:24 Active INTAKE & OUTPUT Q8HR CARE 08/08/19 10:25 Active TELEMETRY MONITORING TELE CARE 08/08/19 10:23 Active VITAL SIGNS Q4HR CARE 08/08/19 10:25 Active RENAL DIET DIETARY 08/08/19 Dinner Ordered RENAL DIET DIETARY 08/08/19 Lunch Ordered RENAL DIET DIETARY 08/08/19 Lunch Ordered ED CATHETER INSERTION AND CARE .ONCE EMERGENCY 08/08/19 07:59 Active CBC W/ AUTO DIFF Stat LAB 08/08/19 08:10 Completed COMPREHENSIVE METABOLIC PANEL Stat LAB 08/08/19 08:10 Completed MAGNESIUM Routine LAB 08/08/19 12:15 Ordered PHOSPHORUS Routine LAB 08/08/19 12:15 Ordered URINALYSIS C & S IF INDICATED Stat LAB 08/08/19 08:27 Completed URINE CULTURE Stat LAB 08/08/19 08:27 Received Acetaminophen [Tylenol] MEDS 08/08/19 12:20 Ordered 500 mg PO Q6H PRN Acetaminophen [Tylenol] MEDS 08/08/19 13:00 Active 500 mg PO Q6H PRN Ceftriaxone/D5w 1 gm Premix [Rocephin 1 gm/50 ml D5w] MEDS 08/08/19 10:19 Discontinued 1 gm in 50 ml IV ONCE Clonidine HCl [Catapres] MEDS 08/08/19 07:59 Discontinued 0.1 mg PO ONCE STA Hydralazine HCl [Apresoline] MEDS 08/08/19 12:30 Ordered 100 mg PO Q08H Hydrocodone Bit/Acetaminophen [[place] 5-325] MEDS 08/08/19 12:20 Ordered 1 tab PO Q6HR PRN Lidocaine (Uro-Jet) [Uro-Jet] MEDS 08/08/19 07:59 Discontinued 10 ml MUCOUSMEMB ONCE STA Methocarbamol [Robaxin] MEDS 08/08/19 12:30 Ordered 500 mg PO BID Metoprolol Tartrate [Lopressor] MEDS 08/08/19 10:25 Discontinued 5 mg IVP ONCE STA Metoprolol Tartrate [Lopressor] MEDS 08/08/19 12:30 Ordered 50 mg PO BID Multi+Dha MEDS 08/08/19 12:30 Ordered 1 tab PO DAILY Tamsulosin HCl [Flomax] MEDS 08/08/19 12:30 Ordered 0.4 mg PO DAILY RESUSCITATION STATUS Routine OTHERS 08/08/19 10:24 Ordered Medications Generic Name Dose Route Start Last Admin Trade Name Freq PRN Reason Stop Dose Admin Acetaminophen 500 mg 08/08/19 13:00 Tylenol PO Q6H PRN Pain Hydrocodone Bitart/Acetaminophen 1 tab 08/08/19 12:20 [place] 5-325 PO Q6HR PRN Pain Hydralazine HCl 100 mg 08/08/19 12:30 Apresoline PO Q08H MECCA Methocarbamol 500 mg 08/08/19 12:30 Robaxin PO BID MECCA Metoprolol Tartrate 50 mg 08/08/19 12:30 Lopressor PO BID MECCA Non-Formulary Medication 1 tab 08/08/19 12:30 Multi+Dha PO DAILY MECCA Tamsulosin HCl 0.4 mg 08/08/19 12:30 Flomax PO DAILY MECCA Discontinued Medications Generic Name Dose Route Start Last Admin Trade Name Freq PRN Reason Stop Dose Admin Acetaminophen 500 mg 08/08/19 12:20 Tylenol PO Q6H PRN Pain Clonidine 0.1 mg 08/08/19 07:59 08/08/19 08:11 Catapres PO 08/08/19 08:00 0.1 mg ONCE STA Administration CEFTRIAXONE/D5W 1 GM PREMIX 1 gm in 50 mls @ 75 mls/hr 08/08/19 10:19 08/08/19 10:35 Rocephin 1 Gm/50 Ml D5w IV 08/08/19 10:58 75 mls/hr ONCE STA Administration Lidocaine HCl 10 ml 08/08/19 07:59 08/08/19 08:12 Uro-Jet MUCOUSMEMB 08/08/19 08:00 10 ml ONCE STA Administration Metoprolol Tartrate 5 mg 08/08/19 10:25 08/08/19 10:34 Lopressor IVP 08/08/19 10:26 5 mg ONCE STA Administration Assessment (1) Renal failure (ARF), acute on chronic: Status: Acute Code(s): N17.9 - Acute kidney failure, unspecified; N18.9 - Chronic kidney disease, unspecified SNOMED Code(s): 768228485 Qualifiers: Acute renal failure type: unspecified Chronic kidney disease stage: unspecified stage Qualified Code(s): N17.9 - Acute kidney failure, unspecified; N18.9 - Chronic kidney disease, unspecified (2) Anemia: Status: Acute Code(s): D64.9 - Anemia, unspecified SNOMED Code(s): 507699927 Qualifiers: Anemia type: unspecified type Qualified Code(s): D64.9 - Anemia, unspecified (3) Acute UTI: Status: Acute Code(s): N39.0 - Urinary tract infection, site not specified SNOMED Code(s): 334848462 (4) Asymptomatic hypertensive urgency: Status: Acute Code(s): I10 - Essential (primary) hypertension SNOMED Code(s): 433934868 (5) Anemia in chronic kidney disease, on chronic dialysis: Status: Acute Code(s): N18.6 - End stage renal disease; D63.1 - Anemia in chronic kidney disease; Z99.2 - Dependence on renal dialysis SNOMED Code(s): 227813643 (6) Peritoneal dialysis catheter in place: Status: Acute Code(s): Z99.2 - Dependence on renal dialysis SNOMED Code(s): 598112068 Plan Plan: Hypertensive urgency -hx of HTN on multiple medications. didn't take his BP meds this morning. BP likely aggravated by pt not having performed his pertoneal dialysis x 2 days -pt received clonidine 0.1mg po in ED without optimal response; ordered lopressor 5mg IVP x 1 stat with appropriate response -hold home losartan and prn hydralazine -resume home hydralazine but increase dose to 100mg q8; continue metoprolol 50mg q12h acute on chronic renal failure with metabolic acidosis -likely related to uncontrolled HTN; pt states dx about 1 yr ago with kidney failure and was placed on peritoneal dialysis at that time -pts dtr to bring in his peritoneal dialysis equipment and pt will perform his dialysis. 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
[2019-08-08] MEDS ORDERED: SODIUM CHLORIDE 1,000 ML IV SCH (15:30)
[2019-08-08] MEDS: NORCO 5-325 PO PRN ×2 (16:32→22:27)
[2019-08-09 04:44] LABS: HEMATOCRIT 24.1 % (42.0-52.0)
[2019-08-09] MEDS: NORCO 5-325 PO PRN ×2 (05:40→18:10)
[2019-08-09] MEDS: APRESOLINE PO SCH ×4 (05:40→20:19)
[2019-08-09] MEDS ORDERED: MAGNESIUM SULFATE 1 GM/2 ML VIAL IVP STA (07:30)
[2019-08-09] MEDS: PRENATAL MULTI PO SCH (08:16)
[2019-08-09] MEDS: DHA PO SCH (08:16)
[2019-08-09] MEDS: ROBAXIN PO SCH ×2 (08:17→20:18)
[2019-08-09] MEDS: ROCEPHIN 1 GM/50 ML D5W 1 GM/50 ML BAG IV SCH (08:17)
[2019-08-09] MEDS: LOPRESSOR PO SCH ×2 (08:17→20:18)
[2019-08-09] MEDS: FLOMAX PO SCH (08:17)
[2019-08-09] MEDS ORDERED: MAGNESIUM SULFATE 1 GM/100 ML D5W 2 GM/200 ML BAG IV STA (08:26)
--- NOTE | 2019-08-09 09:25 | PCM.PROG ---
Date Seen by Provider: 08/09/19 Time Seen by Provider: 08:20 Subjective: pt semi reclined in bed. states he feels better today.he is no longer feeling cold like yesterday. states he was getting hot and then cold overnight and had to keep covering and uncovering himself. completed his PD about 0300 am this morning. no problems with dialysis overnight. pt states he was told not to drink "too much water" so he "backed off" at home. states not given a definite amount. denies any chest pain, shortness of breath, chills, nausea, vomiting, diarrhea. Objective: Vitals: T=97.8 F, P=75, R=18, WB=134/95, SPO2=98 HEENT: [PERRLA, EOMs intact non icteric] Neck: [supple] Lungs: [CTAB] CVS: [RRR S1S2] Abdomen: [soft nontender bowel sounds present no HSM PD cath tube in place no drainage no edema around site] Extremities: [MAEW, 1+ pitting edema bilat feet only] Neurological: [A&O x 4, no focal deficits noted] Skin: [warm dry no rash] Lab/Tests/Diagnostic Imaging: Na 144.6 K 4.70 Cl 110.3 CO2 21.6; BUN 51.2 Cr 9.74 GFR 7.00; glu 108.8 ph 5.14 Mg 1.44[] (1) Renal failure (ARF), acute on chronic: Status: Acute Code(s): N17.9 - Acute kidney failure, unspecified; N18.9 - Chronic kidney disease, unspecified SNOMED Code(s): 351034538 (2) Anemia: Status: Acute Code(s): D64.9 - Anemia, unspecified SNOMED Code(s): 706757303 (3) Acute UTI: Status: Acute Code(s): N39.0 - Urinary tract infection, site not specified SNOMED Code(s): 017088523 (4) Asymptomatic hypertensive urgency: Status: Acute Code(s): I10 - Essential (primary) hypertension SNOMED Code(s): 217391137 (5) Anemia in chronic kidney disease, on chronic dialysis: Status: Acute Code(s): N18.6 - End stage renal disease; D63.1 - Anemia in chronic kidney disease; Z99.2 - Dependence on renal dialysis SNOMED Code(s): 383359648 (6) Peritoneal dialysis catheter in place: Status: Acute Code(s): Z99.2 - Dependence on renal dialysis SNOMED Code(s): 843115313 Plan: Hypertensive urgency, resolved HTN, not well controlled -171/95 120 16 98%RA -pt noted to have elevated HR this morning; takes metoprolol BID; cont to monitor. may need dose adjustment -resume losartan; cont metoprolol; cont hydralazine at increased dose of 100mg q8hrs for now; monitor BP acute on chronic renal failure with metabolic acidosis, improving -BUN 51.2 Cr 9.74 GFR 7.00, improved after overnight PD performed; continue PD and monitor BMP -phosphorus elevated slightly; magnesium low - will replace; cont to monitor -CO2 improved to 21.6 today;cont to monitor -likely related to uncontrolled HTN; pt states dx about 1 yr ago with kidney failure. offered choice of PD vs HD, chose PD. using machine x 4 mos now acute cystitis with dysuria and hematuria -cont ceftriaxone; UCx preliminary w/>100,000 CFU/ml heavy growth gram +cocci; await sensitivity -noted micro hematuria on clean catch urine specimen; pt states noted change in urine color about 2 days prior to sxs of burning on urination -noted gross hematuria after insertion of staley. clearing. -300cc UOP recorded; cont to monitor I&O; pt states still with discomfort on urination with staley in place but it is improved. will leave staley for another night, then remove and do voiding trial. pt on flomax. -c/o decline in urinary volume on admission; staley inserted in ED proteinuria -not new, noted 3+ on labs since september 2017; unclear etiology; pt will f/u with his professor of history BPH -cont flomax; resistance noted with insertion of staley in ED accompanied by gross hematuria macrosytic anemia, ?anemia of chronic disease -H/H 7.7/24.1; may be dilutional as pt was receiving IVF@30cc/hr; fluids discontinued -pt noted to have microscopic hematuria with clean catch urine specimen. states history of anemia unclear etiology. states he had colonoscopy with 2 polyps removed about 6 years ago. was to have redo in 5 years but hasn't gone yet. also had EGD in past which was negative per pt. Has noticed dark stools when he is taking the iron tablets but otherwise denies dark/tarry stools, BRBPR, hematoemesis -monitor and transfuse for hgb <7 -pt states had a bone marrow bx done about 1 year ago in [place]. states didn't get results. not sure if doctor he was seeing then is still practicing. advised he can obtain the results himself if he likes and present that to his current doctor. otherwise, he can have another bx since it has been a year ago. - hewill f/u with PCP for further discussion and/or bone marrow bx thrombocytopenia -PLT >100,000 but not normal values; platelets with slight improvement since pt performed his PD overnight; cont to monitor DVT PPx: no lovenox as pt experiencing hematuria; ambulation, SCDs GI PPx: pepcid CODE: full
[2019-08-09] MEDS ORDERED: PEPCID 20 MG in SODIUM CHLORIDE 50 ML IV SCH (09:30)
[2019-08-09] MEDS: COZAAR PO SCH ×2 (10:34→20:18)
[2019-08-09] MEDS: PEPCID IVP SCH (10:38)
[2019-08-10 04:36] LABS: HEMATOCRIT 23.4 % (42.0-52.0)
[2019-08-10] MEDS: APRESOLINE PO SCH ×3 (05:33→20:19)
[2019-08-10] MEDS: DHA PO SCH (08:22)
[2019-08-10] MEDS: PRENATAL MULTI PO SCH (08:22)
[2019-08-10] MEDS: ROCEPHIN 1 GM/50 ML D5W 1 GM/50 ML BAG IV SCH (08:23)
[2019-08-10] MEDS: ROBAXIN PO SCH ×2 (08:23→20:18)
[2019-08-10] MEDS: LOPRESSOR PO SCH ×2 (08:23→20:19)
[2019-08-10] MEDS: COZAAR PO SCH ×2 (08:23→20:19)
[2019-08-10] MEDS: FLOMAX PO SCH (08:23)
[2019-08-10] MEDS: PEPCID IVP SCH (08:23)
[2019-08-10] MEDS: NORCO 5-325 PO PRN ×2 (08:33→20:23)
[2019-08-10] MEDS ORDERED: TYLENOL PO STA (10:33)
[2019-08-10] MEDS ORDERED: LASIX IVP STA (10:33)
[2019-08-10] MEDS ORDERED: BENADRYL PO STA (10:33)
--- NOTE | 2019-08-10 10:46 | PCM.PROG ---
Date Seen by Provider: 08/10/19 Time Seen by Provider: 09:11 Subjective: no new problems. feels a little tired today. didn't sleep well but not unusual. usually stay awake while my dialysis is going at night. denies chest pain, feeling short of breath, NVD. Objective: Vitals: T=98 F, P=68, R=18, ZQ=065/68, SPO2=98 HEENT: [PERRLA EOMs intact nonicteric ] Neck: [supple, no jvd] Lungs: [CTAB] CVS: [RRR S1 S2] Abdomen: [soft non tender bowel sounds present no HSM] Extremities: [MAEW, peripheral pulses equal symmetric] Neurological: [no focal deficits ntoed] Skin: [warm, dry - noted some pruritis] Lab/Tests/Diagnostic Imaging: [] (1) Renal failure (ARF), acute on chronic: Status: Acute Code(s): N17.9 - Acute kidney failure, unspecified; N18.9 - Chronic kidney disease, unspecified SNOMED Code(s): 453367242 (2) Anemia: Status: Acute Code(s): D64.9 - Anemia, unspecified SNOMED Code(s): 182020565 (3) Acute UTI: Status: Acute Code(s): N39.0 - Urinary tract infection, site not specified SNOMED Code(s): 562652916 (4) Asymptomatic hypertensive urgency: Status: Acute Code(s): I10 - Essential (primary) hypertension SNOMED Code(s): 677970225 (5) Anemia in chronic kidney disease, on chronic dialysis: Status: Acute Code(s): N18.6 - End stage renal disease; D63.1 - Anemia in chronic kidney disease; Z99.2 - Dependence on renal dialysis SNOMED Code(s): 098333097 (6) Peritoneal dialysis catheter in place: Status: Acute Code(s): Z99.2 - Dependence on renal dialysis SNOMED Code(s): 505672925 Plan: Hypertensive urgency, resolved HTN, not well controlled, improved -132/77 68 18 98% RA -cont losartan, metoprolol; hydralazine dose back at home dose of 50mg q8h; monitor and adjust as needed. acute on chronic renal failure with metabolic acidosis, improving -BUN 51.7 Cr 9.50 GFR 7.00, continues with slow improvement with continued PD overnight; continue PD and monitor BMP -phosphorus elevated slightly; magnesium now wnl; cont to monitor -CO2 20.4;cont to monitor -likely related to uncontrolled HTN; pt states dx about 1 yr ago with kidney failure. offered choice of PD vs HD, chose PD. using machine x 4 mos now acute cystitis with dysuria and hematuria -cont ceftriaxone; UCx strep agalactiae group B, sensitive to ceftriaxone -noted micro hematuria on clean catch urine specimen; pt states noted change in urine color about 2 days prior to sxs of burning on urination -noted gross hematuria after insertion of staley. clearing. 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 hgb cont to drop -pt with fatigue but no c/o dyspnea currently; will transfuse as pt appears to have some element of slow blood loss not related to infection -pt noted to have microscopic hematuria with clean catch urine specimen. states history of anemia unclear etiology. states he had colonoscopy with 2 polyps removed about 6 years ago. was to have redo in 5 years but hasn't gone yet. also had EGD in past which was negative per pt. Has noticed dark stools when he is taking the iron tablets but otherwise denies dark/tarry stools, BRBPR, hematoemesis -pt states had a bone marrow bx done about 1 year ago in [place]. states didn't get results. not sure if doctor he was seeing then is still practicing. advised he can obtain the results himself if he likes and present that to his current doctor. otherwise, he can have another bx since it has been a year ago. - lainey f/u with PCP for further discussion and/or bone marrow bx thrombocytopenia, resolved -PLT [id number] today normal value; improved with PD; cont to monitor DVT PPx: lovenox; ambulation, SCDs GI PPx: pepcid CODE: full
[2019-08-10] MEDS ORDERED: LOVENOX SUBCUT SCH (11:30)
[2019-08-10] MEDS: LOVENOX SUBCUT SCH (11:55)
[2019-08-10] MEDS: AVODART PO SCH (11:55)
[2019-08-11 04:56] LABS: HEMATOCRIT 28.7 % (42.0-52.0)
[2019-08-11] MEDS: APRESOLINE PO SCH ×2 (05:39→13:17)
[2019-08-11] MEDS: AVODART PO SCH (08:33)
[2019-08-11] MEDS: ROBAXIN PO SCH (08:33)
[2019-08-11] MEDS: ROCEPHIN 1 GM/50 ML D5W 1 GM/50 ML BAG IV SCH (08:33)
[2019-08-11] MEDS: LOPRESSOR PO SCH (08:33)
[2019-08-11] MEDS: COZAAR PO SCH (08:33)
[2019-08-11] MEDS: FLOMAX PO SCH (08:33)
[2019-08-11] MEDS: PRENATAL MULTI PO SCH (08:34)
[2019-08-11] MEDS: LOVENOX SUBCUT SCH (08:34)
[2019-08-11] MEDS: DHA PO SCH (08:34)
[2019-08-11] MEDS: PEPCID IVP SCH (08:42)
--- NOTE | 2019-08-11 12:58 | PCM.DC ---
Final Diagnosis: primary: hypertensive urgency acute on chronic renal failure ESRD on PD acute cystitis w/hematuria secondary: BPH protienuria macrocystic anemia (1) Renal failure (ARF), acute on chronic: Status: Acute Code(s): N17.9 - Acute kidney failure, unspecified; N18.9 - Chronic kidney disease, unspecified SNOMED Code(s): 518657127 Qualifiers: Acute renal failure type: unspecified Chronic kidney disease stage: unspecified stage Qualified Code(s): N17.9 - Acute kidney failure, unspecified; N18.9 - Chronic kidney disease, unspecified (2) Anemia: Status: Acute Code(s): D64.9 - Anemia, unspecified SNOMED Code(s): 153753732 Qualifiers: Anemia type: unspecified type Qualified Code(s): D64.9 - Anemia, unspecified (3) Acute UTI: Status: Acute Code(s): N39.0 - Urinary tract infection, site not specified SNOMED Code(s): 421613839 (4) Asymptomatic hypertensive urgency: Status: Acute Code(s): I10 - Essential (primary) hypertension SNOMED Code(s): 741072532 (5) Peritoneal dialysis catheter in place: Status: Acute Code(s): Z99.2 - Dependence on renal dialysis SNOMED Code(s): 101371011 (6) End-stage renal disease on peritoneal dialysis: Status: Acute Code(s): N18.6 - End stage renal disease; Z99.2 - Dependence on renal dialysis SNOMED Code(s): 661916372 Reason for Hospitalization: Mr. Lynch is a 64 year old male who presents to emergency with complaint of having burning on urination and feeling he is not urinating as he should, not feeling well, body cramps, and having missed performing his peritoneal dialysis x 2 days. In ED pt found to have elevated blood pressure 225/136, bicarb 17, BUN 53 Cr 10 GFR 6.0; wbc 9.62, H/H 8.6/26.8 PLT 592176; Na 142 K 4.34 Cl 111.2 CO2 17.6 anion gap 17.74; UA positive leukocytes 4+bacteria +blood wbc TNTC nitrite neg. Staley catheter is placed. Nurse reported some difficulty with staley insertion. Pt states has been told he has an enlarged prostate. Pt is given clonidine 0.1mg po for his blood pressure with moderate results but pressure rebounds. Pt is admitted for UTI, hypertensive urgency, metabolic acidosis, and having not performed his home peritoneal dialysis x 2 days. Pt is admitted as inpatient to the Hospitalist service for continued care. Prognosis at Discharge: good for recovery from UTI; ESRD/PD ongoing Condition at Discharge: afebrile, no white count, sxs dysuria resolved, continues with "sweating" with urge/urination, voiding normally after staley removed. hemoglobin/hematocrit improved after transfusion 2 units PRBCs hemodynamically stable and deemed safe for discharge. Medications at Discharge: Ambulatory Orders Medication Instructions Recorded Ultra-Light Rollator #1 ea 12/25/17 hydralazine 50 mg PO Q08H #90 tablet 08/26/18 PNV cmb#95-ferrous fumarate-FA 1 ea PO DAILY 10/10/18 [] clonidine HCl 0.1 mg PO BID #30 tablet 10/10/18 hydralazine 25 mg PO BID PRN 10/10/18 hydrocodone-acetaminophen 1 ea PO Q6HR PRN #15 tablet 10/10/18 tamsulosin 0.4 mg PO DAILY 10/10/18 Multi+Dha 1 tab PO DAILY 08/08/19 acetaminophen [Tylenol Extra 500 mg PO Q6H PRN 08/08/19 Strength] losartan 50 mg PO BID 08/08/19 metoprolol tartrate 50 mg PO BID 08/08/19 clindamycin HCl 300 mg PO Q8HR 6 Days #36 cap 08/11/19 dutasteride [Avodart] 0.5 mg PO DAILY #30 cap 08/11/19 Lab/Diagnostics: H/H 9.5/28.7 pLT [id number] BUN 59.0 Cr 9.48 Education Provided to Patient and Family: complete all antibiotics even if feels better cont PD as instructed cont renal diet and fluid restriction 1500cc daily Follow-ups: pcp 1 - 2 weeks; repeat cbc prior to appt or at appt with pcp Discharge Disposition: Home Hospital Course: Pt presents with c/o dysuria and decreased urine volume. admitted with hypertensive urgency and acute UTI . Staley placed in ED. Hx BPH w/noted resistance when staley is placed in ED. Pt on flomax at home. Pt given clonidine 0.1mg po x 1 in ED with moderate response. BP climbed again and pt given IV lopressor 5mg IVP with an appreciable response.Pt didn't take his home BP meds today. Pts home BP meds are resumed and pts blood pressure significantly improves. pt treated with ceftriaxone. UCx reveals strep group B agalactiae which is sensitive to ceftriaxone. pt received 4 doses of ceftriaxone in house. Staley is removed. Pt continues on flomax and avodart is added. No c/o retention and pt feels urine output and flow back to baseline. Pts dtr brings his supplies and pt continues his peritoneal dialysis each evening as he does at home. His BUN/Cr are somewhat improved. Unclear what pts baseline creatinine is on dialysis. Pt with hx anemia, unclear etiology, planned for bone marrow biopsy prior to coronavirus. Pt is noted to have microscopic hematuria in clean catch urine specimen provided. Noted to have some gross hematuria after instrumentation on insertion of staley cath which cleared over time. Pts hgb drops to 7.4 and pt is symptomatic with increased fatigue and general malaise. Pt is transfused 2 units PRBCs. Hgb 9.5 on day of discharge. eventually pts sxs of dysuria resolved. pt states urine volume seems back to baseline with 300 - 400cc daily recorded UOP. pt on fluid restriction of 1500cc daily. pt c/o feeling "hot flash w/sweating" with urge/urination which has improved but continues at time of discharge. Pt is released with rx for cli ndamycin, per urine cx results, for 6 days to complete 10 day course of therapy. pt also has rx to add avodart for BPH. no other changes to his home mediation regimen. Pt is afebrile, no wbc elevation, vital signs are stable, sxs improved. pt is hemodynamically stable and deemed safe for discharge. pt will f/u with pcp and have recheck of cbc in 1 -2 weeks. Pt will continue to see his family law paralegal as instructed. pt states he has a friend who has told him he will donate a kidney. pt advised to get on transplant register and have his friend go in to see if he meets the criteria for donating an organ.
[2019-08-11] MEDS ORDERED: CLEOCIN PO SCH (13:00)
[2019-08-11 13:33] VITALS: BP 164/92; TEMP 98.3
== END 2019-08-11 14:26 | disposition home or self-care (01) | DRG 690 ==
LOC: ED 07:41 → MEDSURG B 10:32
PROVIDERS: ADMIT Nurse Practitioner Family; ATTEND Nurse Practitioner Family
DX: N18.4 Chronic kidney disease, stage 4 (severe); R53.83 Other fatigue; R80.9 Proteinuria, unspecified; M62.838 Other muscle spasm; Z99.3 Dependence on wheelchair; Z87.440 Personal history of urinary (tract) infections; N40.1 Benign prostatic hyperplasia with lower urinary tract symptoms; I16.0 Hypertensive urgency; E87.2 Acidosis; Z79.899 Other long term (current) drug therapy; N17.9 Acute kidney failure, unspecified; D63.1 Anemia in chronic kidney disease; R53.1 Weakness; Z99.2 Dependence on renal dialysis; R60.0 Localized edema; N30.01 Acute cystitis with hematuria

== ENCOUNTER 2019-10-27 14:26 | Observation (INO) ==
[2019-10-27 14:55] LABS: BASOPHILS % (AUTO) 0.5 % (0.0-3.0); EOSINOPHILS # (AUTO) 0.3 K/ul (0.0-0.7); EOSINOPHILS % (AUTO) 4.9 % (0.0-7.0); HEMATOCRIT 20.3 % (42.0-52.0); HEMOGLOBIN 6.4 g/dl (14.0-18.0); IMMATURE GRANULOCYTE % (AUTO) 0.4 % (0.0-5.0); LYMPHOCYTES # (AUTO) 1.6 K/uL (0.60-3.4); LYMPHOCYTES % (AUTO) 29.9 (10.0-50.0); MEAN CORPUSCULAR HEMOGLOBIN 30.6 pg (27.0-31.0); MEAN CORPUSCULAR HGB CONC 31.5 (31.8-35.4); MEAN CORPUSCULAR VOLUME 97.1 fl (80.0-94.0); MONOCYTES # (AUTO) 0.4 K/uL (0.4-2.0); MONOCYTES % (AUTO) 7.3 (0-10); NEUTROPHILS # (AUTO) 3.1 K/ul (2.0-6.9); PLATELET COUNT 124 10^3/uL (140-440); RDW COEFFICIENT OF VARIATION 13.4 % (11.6-14.8); RED BLOOD COUNT 2.09 10^6/ul (4.70-6.10); WHITE BLOOD COUNT 5.49 K/ul (4.2-10.2)
--- NOTE | 2019-10-27 14:57 | ED.PDOC ---
General ED Provider: Dr. IDA STACK MD Chief Complaint: Abnormal Labs Stated Complaint: low h/h Time Seen by Physician: 14:44 Mode of Arrival: Wheelchair Information Source: Patient Primary Care Provider: EMMANUEL LUNA Nursing and Triage Documentation Reviewed and Agree: Yes Does patient meet sepsis criteria?: No System Inflammatory Response Syndrome: Not Applicable Sepsis Protocol: For patient's 13 years and over: Temp is 96.8 and below OR 101 and greater Pulse >90 BPM Resp >20/minute Acutely Altered Mental Status Are patient's symptoms suggestive of a new infection, such as: -Pneumonia -Skin, Soft Tissue -Endocarditis -UTI -Bone, Joint Infection -Implantable Device -Acute Abdominal Infection -Wound Infection -Meningitis -Blood Stream Catheter Infection -Unknown Miscellaneous Complaint Exam Complex/Multi-System Complaint/Exam Onset/Duration: ~3 days ago Symptoms Are: Still present Initial Severity: Moderate Current Severity: Moderate Location of Pain: none Associated Signs and Symptoms: Reports Weakness (fatigue) and Melena; Denies Nausea, Vomiting, Diarrhea and Abdominal pain Related History: Other (similar episode in July) Respiratory Distress: None JVD Present: No Tachypnea Present: No Stridor Present: No Abdominal Findings: Present Normal findings Glascow Coma Scale (see protocol): 15 Meningeal Signs Positive: No Focal Weakness: Present None Focal Sensory Loss: Present None Gait: Unable (Patient is in a power chair.) Skin Findings: Present Normal findings Joint Swelling Present: No Review of Systems Review Of Systems Constitutional: Reports Weakness and Other (fatigue) All Other Systems: Reviewed and Negative [facility] Medical History Arthritis Back pain Chronic liver disease Chronic renal failure, stage 4 (severe) End-stage renal disease on peritoneal dialysis Hypertension Peritoneal dialysis catheter in place UTI (urinary tract infection) Family History Mother Hypertension Diabetes Rheumatoid arthritis FATHER No problems noted. Social History Smoking and tobacco status: Former smoker How long ago did patient quit smoking: quit 10 years ago Alcohol intake: former Substance use type: does not use Caregiver/support person: Yes Household members: family History of recent travel: No Physical Exam Physical Exam Appearance: Reports Well-appearing and Well-nourished Ill-appearing: None Pain Distress: None Eyes: Reports REINA, EOMI and Conjunctiva clear ENT: Reports Nose normal Neck: Supple Respiratory: Reports Airway patent, Breath sounds clear, Breath sounds equal and Breath sounds diminished Cardiovascular: Reports RRR GI/: Reports Soft, Nontender and Bowel sounds normal Musculoskeletal: Reports Normal strength and ROM intact Skin: Reports Warm, Dry and Normal color Neurological: Reports Sensation intact, Motor intact, Cranial nerves intact, Alert and Oriented Psychiatric: Reports Affect appropriate and Mood appropriate Critical Care Note Critical Care Note Total Time (mins): 0 Course Course Hematology/Chemistry: 10/29/19 04:10 10/29/19 04:10 Orders, Labs, Meds: Lab Review 10/27/19 10/27/19 10/27/19 14:50 14:50 14:50 WBC 5.49 RBC 2.09 L Hgb 6.4 L Hct 20.3 L MCV 97.1 H MCH 30.6 MCHC 31.5 L RDW Coeff of Carlita 13.4 Plt Count 124 L Immature Gran % (Auto) 0.4 Neut % (Auto) 57.0 Lymph % (Auto) 29.9 Chambers % (Auto) 7.3 Eos % (Auto) 4.9 Baso % (Auto) 0.5 Neut # (Auto) 3.1 Lymph # (Auto) 1.6 Chambers # (Auto) 0.4 Eos # (Auto) 0.3 Baso # (Auto) 0.0 Immature Gran # (Auto) 0.0 Sodium 139.6 Potassium 5.19 H Chloride 111.8 H Carbon Dioxide 18.6 L Anion Gap 14.39 BUN 76.6 H* Creatinine 12.40 H* Estimated GFR (MDRD) 5.00 BUN/Creatinine Ratio 6.17 Glucose 88.6 Calcium 8.19 L Magnesium 1.20 L Iron TIBC % Saturation Total Bilirubin 0.35 AST 21.9 ALT 9.4 Alkaline Phosphatase 57.4 NT-Pro-B Natriuret Pep 47102.000 H Total Protein 6.48 Albumin 3.36 L Globulin 3.12 Albumin/Globulin Ratio 1.07 Vitamin B12 Folate 8.31 Blood Type Antibody Screen Crossmatch (AHG) 10/27/19 10/27/19 14:50 15:22 WBC RBC Hgb Hct MCV MCH MCHC RDW Coeff of Carlita Plt Count Immature Gran % (Auto) Neut % (Auto) Lymph % (Auto) Chambers % (Auto) Eos % (Auto) Baso % (Auto) Neut # (Auto) Lymph # (Auto) Chambers # (Auto) Eos # (Auto) Baso # (Auto) Immature Gran # (Auto) Sodium Potassium Chloride Carbon Dioxide Anion Gap BUN Creatinine Estimated GFR (MDRD) BUN/Creatinine Ratio Glucose Calcium Magnesium Iron 113.3 TIBC 215 L % Saturation 53 Total Bilirubin AST ALT Alkaline Phosphatase NT-Pro-B Natriuret Pep Total Protein Albumin Globulin Albumin/Globulin Ratio Vitamin B12 516 Folate Blood Type O POSITIVE Antibody Screen Negative Crossmatch (AHG) See Detail Orders Category Date Time Status ADMIT OBSERVATION [PLACE PATIENT OBSERVATION] .TO ADMISSION 10/27/19 15:25 Active MEDSURG (MONITORED BED) ACTIVITY .BR with BRP CARE 10/27/19 15:10 Active INTAKE & OUTPUT Q8HR CARE 10/27/19 15:10 Active TELEMETRY MONITORING TELE CARE 10/27/19 15:25 Active VITAL SIGNS Q2HR CARE 10/27/19 15:10 Active REGULAR DIET DIETARY 10/27/19 Dinner Completed BASIC METABOLIC PANEL DAILY@0600 LAB 10/28/19 04:03 Completed CBC W/ AUTO DIFF DAILY@0600 LAB 10/28/19 04:03 Completed CBC W/ AUTO DIFF Stat LAB 10/27/19 14:50 Completed COMPREHENSIVE METABOLIC PANEL Stat LAB 10/27/19 14:50 Completed MAGNESIUM Stat LAB 10/27/19 14:50 Completed NT-PROBNP Stat LAB 10/27/19 14:50 Completed PACKED CELLS Stat LAB 10/27/19 15:22 Completed TYPE AND SCREEN Stat LAB 10/27/19 15:22 Completed RESUSCITATION STATUS Routine OTHERS 10/27/19 15:10 Completed Medications Discontinued Medications Generic Name Dose Route Start Last Admin Trade Name Freq PRN Reason Stop Dose Admin Acetaminophen 500 mg 10/27/19 16:17 Tylenol PO Q6H PRN Fever >101 Hydrocodone Bitart/Acetaminophen 1 tab 10/27/19 16:17 10/28/19 20:30 Hessmer 5-325 PO 1 tab Q6HR PRN Administration Pain Clonidine 0.1 mg 10/27/19 21:00 10/29/19 08:12 Catapres PO 0.1 mg BID MECCA Administration Clonidine 0.1 mg 10/28/19 15:53 10/28/19 16:01 Catapres PO 10/28/19 15:54 0.1 mg ONCE STA Administration Clonidine 0.1 mg 10/28/19 18:05 10/28/19 18:11 Catapres PO 10/28/19 18:06 0.1 mg ONCE STA Administration Dutasteride 0.5 mg 10/28/19 09:00 10/29/19 08:13 Avodart PO 0.5 mg DAILY MECCA Administration Hydralazine HCl 25 mg 10/27/19 16:17 10/29/19 08:14 Apresoline PO 25 mg BID PRN Administration Hypertensive Emergency Hydralazine HCl 50 mg 10/27/19 16:30 10/27/19 18:50 Apresoline PO Not Given Q08H MECCA Hydralazine HCl 50 mg 10/27/19 21:00 10/28/19 20:30 Apresoline PO 50 mg Q8HR MECCA Administration Hydralazine HCl 50 mg 10/29/19 00:00 10/29/19 12:21 Apresoline PO 50 mg Q6HR MECCA Administration Losartan Potassium 50 mg 10/27/19 21:00 10/29/19 08:12 Cozaar PO 50 mg BID MECCA Administration Metoprolol Tartrate 50 mg 10/27/19 21:00 10/29/19 08:12 Lopressor PO 50 mg BID MECCA Administration Non-Formulary Medication 420 mg 10/27/19 17:00 10/29/19 12:21 Ferric Citrate [Auryxia] PO 420 mg TIDWM MECCA Administration Non-Formulary Medication 1 each 10/30/19 09:00 Pnv Cmb#95-Ferrous Fumarate-Fa [] PO DAILY MECCA Sodium Chloride 1 syr 10/28/19 05:00 10/29/19 12:23 Saline Flush IVF Not Given Q8HR MECCA Sodium Chloride 1 syr 10/28/19 04:38 Saline Flush IVF PRN PRN maintain IV access Tamsulosin HCl 0.4 mg 10/28/19 09:00 10/29/19 08:12 Flomax PO 0.4 mg DAILY MECCA Administration Patient has ESRD on PD. He has periodic anemia. He saw his PCP Sunday and labs were drawn. When they were resulted, he was told to go to the nearest ED, because his hemoglobin was <6. He decided to come in today. Labs were done on arrival, and his hemoglobin was 6.4. He was agreeable for admission, so was placed in Observation for transfusion. He was in good condition when transported from the ED to the floor. Vital Signs: Temp Pulse Resp BP Pulse Ox 10/27/19 14:26 98.0 F 76 20 184/97 H 97 Discharge Plan Discharge Patient Disposition: PLACED OBSERVATION Discharge Problem: End-stage renal disease on peritoneal dialysis Anemia Qualifiers: Anemia type: due to chronic kidney disease Chronic kidney disease stage: on chronic dialysis Qualified Code(s): N18.6 - End stage renal disease Instructions: Chronic Hypertension (DC), Anemia (DC), How To Wash Your Hands (GEN), COVID-19 (Coronavirus Disease 2019)(GEN) Additional Instructions: DISCHARGE HOME TODAY CONTINUE YOUR HOME MEDICATIONS; YOUR APRESOLINE (HYDRALAZINE) HAS BEEN INCREASED TO EVERY 6 HOURS INSTEAD OF EVERY 8 HOURS NEW PRESCRIPTION: APRESOLINE (HYDRALAZINE) 50MG. BY MOUTH EVERY 6 HOURS ACTIVITY TOLERATED, GRADUALLY RESUME KEEP YOUR APPOINTMENT WITH YOUR DOCTOR SCHEDULED. RESUME YOUR CURRENT DIET FOLLOW UP WITH YOUR PRIMARY CARE DOCTOR, CALL TODAY OR TOMORROW FOR FOLLOW UP APPOINTMENT ED Provider: IDA STACK Condition: Good Discharge Date/Time: 10/27/19 15:45
[2019-10-27 15:14] LABS: ALANINE AMINOTRANSFERASE 9.4 U/L (0-50); ALBUMIN 3.36 g/dL (3.5-5.0); ALKALINE PHOSPHATASE 57.4 U/L (56-119); ASPARTATE AMINO TRANSFERASE 21.9 U/L (17-59); BILIRUBIN,TOTAL 0.35 mg/dL (0.2-1.3); CALCIUM 8.19 mg/dL (8.4-10.2); CARBON DIOXIDE 18.6 mmol/L (22-30.0); CHLORIDE 111.8 mmol/L (98-107); GLUCOSE 88.6 mg/dL (74-106); MAGNESIUM 1.2 mg/dL (1.6-2.3); POTASSIUM 5.19 mmol/L (3.5-5.1); SODIUM 139.6 mmol/L (134.5-145); TOTAL PROTEIN 6.48 g/dL (6.3-8.2)
[2019-10-27 15:28] LABS: BLOOD UREA NITROGEN 76.6 mg/dL (9-20); CREATININE 12.4 mg/dL (0.60-1.10)
[2019-10-27 16:03] VITALS: BMI 21.7
[2019-10-27] MEDS ORDERED: TYLENOL PO PRN (16:17)
[2019-10-27] MEDS ORDERED: APRESOLINE PO SCH (16:30)
[2019-10-27] MEDS: NON-FORMULARY MEDICATION (Ferric Citrate [Auryxia] 420 MG) PO SCH (18:29)
[2019-10-27] MEDS: LOPRESSOR PO SCH (20:14)
[2019-10-27] MEDS: APRESOLINE PO SCH (20:14)
[2019-10-27] MEDS: CATAPRES PO SCH (20:14)
[2019-10-27] MEDS: COZAAR PO SCH (20:14)
[2019-10-27] MEDS: NORCO 5-325 PO PRN (20:16)
[2019-10-27] MEDS: APRESOLINE PO PRN (21:18)
[2019-10-28 04:25] LABS: BASOPHILS % (AUTO) 0.2 % (0.0-3.0); EOSINOPHILS # (AUTO) 0.3 K/ul (0.0-0.7); EOSINOPHILS % (AUTO) 5.2 % (0.0-7.0); HEMATOCRIT 26.1 % (42.0-52.0); HEMOGLOBIN 8.5 g/dl (14.0-18.0); IMMATURE GRANULOCYTE % (AUTO) 0.2 % (0.0-5.0); LYMPHOCYTES # (AUTO) 2.1 K/uL (0.60-3.4); LYMPHOCYTES % (AUTO) 37.3 (10.0-50.0); MEAN CORPUSCULAR HEMOGLOBIN 30.8 pg (27.0-31.0); MEAN CORPUSCULAR HGB CONC 32.6 (31.8-35.4); MEAN CORPUSCULAR VOLUME 94.6 fl (80.0-94.0); MONOCYTES # (AUTO) 0.6 K/uL (0.4-2.0); MONOCYTES % (AUTO) 10.7 (0-10); NEUTROPHILS # (AUTO) 2.6 K/ul (2.0-6.9); NEUTROPHILS % (AUTO) 46.4 % (42.2-75.2); PLATELET COUNT 125 10^3/uL (140-440); RDW COEFFICIENT OF VARIATION 14.3 % (11.6-14.8); RED BLOOD COUNT 2.76 10^6/ul (4.70-6.10); WHITE BLOOD COUNT 5.61 K/ul (4.2-10.2)
[2019-10-28 04:37] LABS: CALCIUM 7.81 mg/dL (8.4-10.2); CARBON DIOXIDE 21.4 mmol/L (22-30.0); CHLORIDE 110.4 mmol/L (98-107); GLUCOSE 84.6 mg/dL (74-106); POTASSIUM 4.74 mmol/L (3.5-5.1); SODIUM 140.2 mmol/L (134.5-145)
[2019-10-28 04:45] LABS: BLOOD UREA NITROGEN 71.8 mg/dL (9-20)
[2019-10-28 04:46] LABS: CREATININE 11.53 mg/dL (0.60-1.10)
[2019-10-28] MEDS: APRESOLINE PO SCH ×3 (05:26→20:30)
[2019-10-28] MEDS: NORCO 5-325 PO PRN ×2 (07:03→20:30)
[2019-10-28] MEDS: APRESOLINE PO PRN ×3 (07:05→21:29)
[2019-10-28] MEDS: AVODART PO SCH (08:18)
[2019-10-28] MEDS: CATAPRES PO SCH ×2 (08:18→20:30)
[2019-10-28] MEDS: LOPRESSOR PO SCH ×2 (08:19→20:29)
[2019-10-28] MEDS: NON-FORMULARY MEDICATION (Ferric Citrate [Auryxia] 420 MG) PO SCH ×3 (08:19→17:49)
[2019-10-28] MEDS: COZAAR PO SCH ×2 (08:19→20:29)
[2019-10-28] MEDS: FLOMAX PO SCH (08:19)
[2019-10-28 09:16] LABS: IRON 113.3 ug/dL (49-181)
[2019-10-28] MEDS ORDERED: CATAPRES PO STA ×2 (15:53→18:05)
[2019-10-29] MEDS: APRESOLINE PO SCH ×3 (02:30→12:21)
[2019-10-29 04:26] LABS: BASOPHILS % (AUTO) 0.4 % (0.0-3.0); EOSINOPHILS # (AUTO) 0.3 K/ul (0.0-0.7); EOSINOPHILS % (AUTO) 6.2 % (0.0-7.0); HEMATOCRIT 25.7 % (42.0-52.0); HEMOGLOBIN 8.2 g/dl (14.0-18.0); IMMATURE GRANULOCYTE % (AUTO) 0.4 % (0.0-5.0); LYMPHOCYTES # (AUTO) 1.7 K/uL (0.60-3.4); LYMPHOCYTES % (AUTO) 32.6 (10.0-50.0); MEAN CORPUSCULAR HEMOGLOBIN 30.3 pg (27.0-31.0); MEAN CORPUSCULAR HGB CONC 31.9 (31.8-35.4); MEAN CORPUSCULAR VOLUME 94.8 fl (80.0-94.0); MONOCYTES # (AUTO) 0.7 K/uL (0.4-2.0); MONOCYTES % (AUTO) 12.7 (0-10); NEUTROPHILS # (AUTO) 2.5 K/ul (2.0-6.9); NEUTROPHILS % (AUTO) 47.7 % (42.2-75.2); PLATELET COUNT 113 10^3/uL (140-440); RDW COEFFICIENT OF VARIATION 14.3 % (11.6-14.8); RED BLOOD COUNT 2.71 10^6/ul (4.70-6.10); WHITE BLOOD COUNT 5.19 K/ul (4.2-10.2)
[2019-10-29 04:40] LABS: ALANINE AMINOTRANSFERASE 7.6 U/L (0-50); ALBUMIN 2.91 g/dL (3.5-5.0); ALKALINE PHOSPHATASE 87.4 U/L (56-119); ASPARTATE AMINO TRANSFERASE 17.5 U/L (17-59); BILIRUBIN,TOTAL 0.28 mg/dL (0.2-1.3); CALCIUM 7.49 mg/dL (8.4-10.2); CARBON DIOXIDE 19.3 mmol/L (22-30.0); CHLORIDE 109.4 mmol/L (98-107); GLUCOSE 132.6 mg/dL (74-106); POTASSIUM 4.56 mmol/L (3.5-5.1); SODIUM 136.5 mmol/L (134.5-145); TOTAL PROTEIN 5.83 g/dL (6.3-8.2)
[2019-10-29 04:47] LABS: BLOOD UREA NITROGEN 71.5 mg/dL (9-20)
[2019-10-29 04:48] LABS: CREATININE 11.14 mg/dL (0.60-1.10)
[2019-10-29] MEDS: CATAPRES PO SCH (08:12)
[2019-10-29] MEDS: LOPRESSOR PO SCH (08:12)
[2019-10-29] MEDS: COZAAR PO SCH (08:12)
[2019-10-29] MEDS: FLOMAX PO SCH (08:12)
[2019-10-29] MEDS: AVODART PO SCH (08:13)
[2019-10-29] MEDS: NON-FORMULARY MEDICATION (Ferric Citrate [Auryxia] 420 MG) PO SCH ×2 (08:13→12:21)
[2019-10-29] MEDS: APRESOLINE PO PRN (08:14)
--- NOTE | 2019-10-29 09:01 | PCM.DC ---
Final Diagnosis: anemia, uncontrolled HTN Reason for Hospitalization: Pt was hospitalized for anemia and his BP was elevated. Prognosis at Discharge: good Condition at Discharge: stable Medications at Discharge: Ambulatory Orders Medication Instructions Recorded Ultra-Light Rollator #1 ea 12/25/17 hydralazine 50 mg PO Q08H #90 tablet 08/26/18 PNV cmb#95-ferrous fumarate-FA 1 ea PO DAILY 10/10/18 [] clonidine HCl 0.1 mg PO BID #30 tablet 10/10/18 hydralazine 25 mg PO BID PRN 10/10/18 hydrocodone-acetaminophen 1 ea PO Q6HR PRN #15 tablet 10/10/18 tamsulosin 0.4 mg PO DAILY 10/10/18 Multi+Dha 1 tab PO DAILY 08/08/19 acetaminophen [Tylenol Extra 500 mg PO Q6H PRN 08/08/19 Strength] losartan 50 mg PO BID 08/08/19 metoprolol tartrate 50 mg PO BID 08/08/19 dutasteride [Avodart] 0.5 mg PO DAILY #30 cap 08/11/19 ferric citrate [Auryxia] 420 mg PO TIDWM 10/27/19 Education Provided to Patient and Family: Hypertension control Follow-ups: PMD in 1-2 days. Discharge Disposition: Home Hospital Course: Pt was stable in the hospital with improved Hb and moderated BP. Plan: Hydralazine 50mg Q6h was only Rx changed.
[2019-10-29] MEDS ORDERED: APRESOLINE PO SCH (09:30)
--- NOTE | 2019-10-29 09:42 | PCM.HOSP ---
Subsequent Care [id number] 15 Minutes per Day ([id number]): 0830 on 10/29/2019. pt was seen and examined. sitting comfortably in bed. No acute complaint. HEENT: wnl; CVS: RRR; Resp: chest was clear; Abomen: benign. MS: minimal chronic edema bilateral feet. Neuro: non-focal. Normal mentation and orientation. Assessment: 1. Anemia improved. 2. HTN moderated. Plan: Hydralazine 50mg Q6h. Early PMD F/u. Pt may go home 10/29/2019.
[2019-10-29 10:00] VITALS: TEMP 98.1
[2019-10-29 12:00] VITALS: BP 147/48
[2019-10-29 14:10] LABS: ALPHA-1 GLOBULIN 0.2 g/dL (0.0-0.4); ALPHA-2 GLOBULIN 0.6 g/dL (0.4-1.0); BETA GLOBULIN 0.8 g/dL (0.7-1.3); GAMMA GLOBULIN 1.2 g/dL (0.4-1.8); M-SPIKE 0.6 g/dL (Not Observed); TOTAL GLOBULINS 2.8 g/dL (2.2-3.9); TOTAL PROTEIN,SERUM 5.9 g/dL (6.0-8.5)
[2019-10-30] MEDS ORDERED: PNV CMB FERROUS FUMARATE FA PO SCH (09:00)
[2019-10-31 14:15] LABS: IMMUNOGLOBULIN A, QN, SERUM 146 mg/dL (61-437); IMMUNOGLOBULIN G, QN, SERUM 1202 mg/dL (603-1613); IMMUNOGLOBULIN M, QN, SERUM 43 mg/dL (20-172)
--- NOTE | 2019-12-10 16:09 | PCM.PROG ---
Date Seen by Provider: 10/28/19 Time Seen by Provider: 08:00 Subjective: Pt had no acute complaint. Objective: Vitals: T=98.1 F, P=68, R=16, HP=191/48, SPO2=97 HEENT: [wnl] Neck:wnl Lungs: chest was clear CVS: RRR Abdomen: benign Extremities: nil acute abnormality Neurological: non-focal Skin: wnl Lab/Tests/Diagnostic Imaging: [] (1) End-stage renal disease on peritoneal dialysis: Status: Acute Code(s): N18.6 - End stage renal disease; Z99.2 - Dependence on renal dialysis SNOMED Code(s): 421328448 (2) Anemia: Status: Acute Code(s): D64.9 - Anemia, unspecified SNOMED Code(s): 503017359 Plan: For home today
--- NOTE | 2019-12-11 11:01 | PCM.DC ---
Final Diagnosis: Anemia (1) End-stage renal disease on peritoneal dialysis: Status: Acute Code(s): N18.6 - End stage renal disease; Z99.2 - Dependence on renal dialysis SNOMED Code(s): 627630492 (2) Anemia: Status: Acute Code(s): D64.9 - Anemia, unspecified SNOMED Code(s): 428624983 Qualifiers: Anemia type: due to chronic kidney disease Chronic kidney disease stage: on chronic dialysis Qualified Code(s): N18.6 - End stage renal disease; D63.1 - Anemia in chronic kidney disease; Z99.2 - Dependence on renal dialysis Reason for Hospitalization: Anemia Prognosis at Discharge: Fair Condition at Discharge: Stable Medications at Discharge: Ambulatory Orders Medication Instructions Recorded Ultra-Light Rollator #1 ea 12/25/17 PNV cmb#95-ferrous fumarate-FA 1 ea PO DAILY 10/10/18 [] clonidine HCl 0.1 mg PO BID #30 tablet 10/10/18 hydralazine 25 mg PO BID PRN 10/10/18 hydrocodone-acetaminophen 1 ea PO Q6HR PRN #15 tablet 10/10/18 tamsulosin 0.4 mg PO DAILY 10/10/18 Multi+Dha 1 tab PO DAILY 08/08/19 acetaminophen [Tylenol Extra 500 mg PO Q6H PRN 08/08/19 Strength] losartan 50 mg PO BID 08/08/19 metoprolol tartrate 50 mg PO BID 08/08/19 dutasteride [Avodart] 0.5 mg PO DAILY #30 cap 08/11/19 Auryxia 420 mg PO TIDWM 10/27/19 Lab/Diagnostics: Laboratory Tests 10/27/19 10/27/19 10/27/19 14:50 14:50 14:50 WBC 5.49 RBC 2.09 L Hgb 6.4 L Hct 20.3 L MCV 97.1 H MCH 30.6 MCHC 31.5 L RDW Coeff of Carlita 13.4 Plt Count 124 L Immature Gran % (Auto) 0.4 Neut % (Auto) 57.0 Lymph % (Auto) 29.9 Hardin % (Auto) 7.3 Eos % (Auto) 4.9 Baso % (Auto) 0.5 Neut # (Auto) 3.1 Lymph # (Auto) 1.6 Hardin # (Auto) 0.4 Eos # (Auto) 0.3 Baso # (Auto) 0.0 Immature Gran # (Auto) 0.0 Sodium 139.6 Potassium 5.19 H Chloride 111.8 H Carbon Dioxide 18.6 L Anion Gap 14.39 BUN 76.6 H* Creatinine 12.40 H* Estimated GFR (MDRD) 5.00 BUN/Creatinine Ratio 6.17 Glucose 88.6 Calcium 8.19 L Magnesium 1.20 L Iron TIBC % Saturation Total Bilirubin 0.35 AST 21.9 ALT 9.4 Alkaline Phosphatase 57.4 NT-Pro-B Natriuret Pep 89414.000 H Serum Total Protein Total Protein 6.48 Albumin 3.36 L Albumin % (PEP) Globulin 3.12 Globulin (PEP) Albumin/Globulin Ratio 1.07 Xzkrr-9-Hedpbqxua Xigru-0-Yfhohtnwb Beta Globulins Gamma Globulins M-Alphonso PEP Note Vitamin B12 Folate 8.31 Serum IgA Serum IgG Serum IgM Serum MANOHAR Interpret Blood Type Antibody Screen Crossmatch ([facility]) 10/27/19 10/27/19 10/28/19 14:50 15:22 04:03 WBC 5.61 RBC 2.76 L Hgb 8.5 L Hct 26.1 L MCV 94.6 H MCH 30.8 MCHC 32.6 RDW Coeff of Carlita 14.3 Plt Count 125 L Immature Gran % (Auto) 0.2 Neut % (Auto) 46.4 Lymph % (Auto) 37.3 Hardin % (Auto) 10.7 H Eos % (Auto) 5.2 Baso % (Auto) 0.2 Neut # (Auto) 2.6 Lymph # (Auto) 2.1 Hardin # (Auto) 0.6 Eos # (Auto) 0.3 Baso # (Auto) 0.0 Immature Gran # (Auto) 0.0 Sodium Potassium Chloride Carbon Dioxide Anion Gap BUN Creatinine Estimated GFR (MDRD) BUN/Creatinine Ratio Glucose Calcium Magnesium Iron 113.3 TIBC 215 L % Saturation 53 Total Bilirubin AST ALT Alkaline Phosphatase NT-Pro-B Natriuret Pep Serum Total Protein Total Protein Albumin Albumin % (PEP) Globulin Globulin (PEP) Albumin/Globulin Ratio Nvmql-6-Fgygpclrp Bkven-2-Ayqckrkmp Beta Globulins Gamma Globulins M-Alphonso PEP Note Vitamin B12 516 Folate Serum IgA Serum IgG Serum IgM Serum MANOHAR Interpret Blood Type O POSITIVE Antibody Screen Negative Crossmatch ([facility]) See Detail 10/28/19 10/28/19 10/28/19 04:03 09:12 15:22 WBC RBC Hgb Hct MCV MCH MCHC RDW Coeff of Carlita Plt Count Immature Gran % (Auto) Neut % (Auto) Lymph % (Auto) Hardin % (Auto) Eos % (Auto) Baso % (Auto) Neut # (Auto) Lymph # (Auto) Hardin # (Auto) Eos # (Auto) Baso # (Auto) Immature Gran # (Auto) Sodium 140.2 Potassium 4.74 Chloride 110.4 H Carbon Dioxide 21.4 L Anion Gap 13.14 BUN 71.8 H* Creatinine 11.53 H* D Estimated GFR (MDRD) 5.00 BUN/Creatinine Ratio 6.22 Glucose 84.6 Calcium 7.81 L Magnesium Iron TIBC % Saturation Total Bilirubin AST ALT Alkaline Phosphatase NT-Pro-B Natriuret Pep Serum Total Protein 5.9 L Total Protein Albumin Albumin % (PEP) 3.1 Globulin Globulin (PEP) 2.8 Albumin/Globulin Ratio 1.1 Wpsxw-7-Tohundhpm 0.2 Zgqjc-4-Tkuwoweru 0.6 Beta Globulins 0.8 Gamma Globulins 1.2 M-Alphonso 0.6 H PEP Note Comment Vitamin B12 Folate Serum IgA 146 Serum IgG 1202 Serum IgM 43 Serum MANOHAR Interpret Comment Blood Type Antibody Screen Crossmatch ([facility]) 10/29/19 10/29/19 04:10 04:10 WBC 5.19 RBC 2.71 L Hgb 8.2 L Hct 25.7 L MCV 94.8 H MCH 30.3 MCHC 31.9 RDW Coeff of Carlita 14.3 Plt Count 113 L Immature Gran % (Auto) 0.4 Neut % (Auto) 47.7 Lymph % (Auto) 32.6 Hardin % (Auto) 12.7 H Eos % (Auto) 6.2 Baso % (Auto) 0.4 Neut # (Auto) 2.5 Lymph # (Auto) 1.7 Hardin # (Auto) 0.7 Eos # (Auto) 0.3 Baso # (Auto) 0.0 Immature Gran # (Auto) 0.0 Sodium 136.5 Potassium 4.56 Chloride 109.4 H Carbon Dioxide 19.3 L Anion Gap 12.36 BUN 71.5 H* Creatinine 11.14 H* Estimated GFR (MDRD) 6.00 BUN/Creatinine Ratio 6.41 Glucose 132.6 H Calcium 7.49 L Magnesium Iron TIBC % Saturation Total Bilirubin 0.28 AST 17.5 ALT 7.6 Alkaline Phosphatase 87.4 D NT-Pro-B Natriuret Pep Serum Total Protein Total Protein 5.83 L Albumin 2.91 L Albumin % (PEP) Globulin 2.92 Globulin (PEP) Albumin/Globulin Ratio 0.99 Orvcf-7-Nveozhucn Zikuq-9-Qmaxxunlq Beta Globulins Gamma Globulins M-Alphonso PEP Note Vitamin B12 Folate Serum IgA Serum IgG Serum IgM Serum MANOHAR Interpret Blood Type Antibody Screen Crossmatch ([facility]) Education Provided to Patient and Family: See discharge notes, re Anemia. Follow-ups: PMD in 1-2 days. Discharge Disposition: Home Hospital Course: Pt was transfused and felt better. Pt was admitted 10/27/2019 via ED for anemia. Please see Dr Nuñez's notes, labs, imaging and admission orders. Pt had an uneventful hospital stay. He was discharged home in improved condition. Pt will f/u with PMD in 1-2 days. Plan: PMD in 1-2 days. May RTC prn
== END 2019-10-29 13:15 | disposition home or self-care (01) ==
LOC: ED 14:26 → MEDSURG B 14:26
PROVIDERS: ADMIT Family Medicine Addiction Medicine; ATTEND Emergency Medicine
DX: D63.1 Anemia in chronic kidney disease; Z79.899 Other long term (current) drug therapy; N18.6 End stage renal disease; Z51.81 Encounter for therapeutic drug level monitoring; Z99.2 Dependence on renal dialysis; I10 Essential (primary) hypertension